=== PATIENT | male | born 1980 | race Caucasian/White ===

== ENCOUNTER 2016-08-11 23:52 | Emergency (ER) | payer SELFPAY ==
[2016-08-12] MEDS ORDERED: TENIVAC IM ONE (00:59)
[2016-08-12] MEDS ORDERED: NACL 0.9% 1000 ML 1,000 ML IV ONE ×2 (00:59→03:00)
[2016-08-12] MEDS ORDERED: ceFAZolin 2 GM in NACL 0.9% 100 ML IV ONE (00:59)
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
[2016-08-12] MEDS ORDERED: XYLOCAINE 2% INFILTRATI ONE (01:56)
[2016-08-12] MEDS ORDERED: BOOSTRIX IM ONE (02:00)
[2016-08-12 02:05] LABS: Anion Gap 26 mmol/L; BUN/Creatinine Ratio 14.28; Blood Urea Nitrogen 10 mg/dL (9-20); Calcium 8.8 mg/dL (8.4-10.2); Carbon Dioxide 20 mmol/L (22-30); Chloride 95.8 mmol/L (98-107); Glucose 428 mg/dL (75-100); Potassium 3.5 mmol/L (3.6-5.0); Sodium 138 mmol/L (137-145)
[2016-08-12 02:13] LABS: Basophils % (Auto) 0.6 % (0.0-1.8); Eosinophils % (Auto) 0.2 % (0.0-4.3); Hematocrit 47.9 % (35.5-45.6); Hemoglobin 16.1 gm/dl (11.8-15.2); Mean Corpuscular HGB Conc 34 % (32-34); Mean Corpuscular Hemoglobin 30 pg (28-32); Mean Corpuscular Volume 90 fl (84-94); Platelet Count 168 K/mm3 (140-440); Red Blood Count 5.34 M/mm3 (3.65-5.03); Red Cell Distribution Width 12.5 % (13.2-15.2); White Blood Count 12.8 K/mm3 (4.5-11.0)
[2016-08-12 02:22] LABS: INR 1.01 (0.87-1.13); Partial Thromboplastin Time 24.8 Sec. (24.2-36.6)
[2016-08-12] MEDS ORDERED: HYDROGEN PEROXIDE ONE ×2 (03:38→06:48)
[2016-08-12 07:09] VITALS: BP 125/81
== END 2016-08-12 07:40 | disposition home or self-care (01) ==
LOC: ED 23:52
DX: S01.511A Laceration without foreign body of lip, initial encounter (principal); S01.81XA Laceration without foreign body of other part of head, initial encounter; E11.65 Type 2 diabetes mellitus with hyperglycemia
CPT/HCPCS: 12015; 36415; 70450; 70486; 72125; 80048; 82962; 85025; 85610; 85730; 86850; 86900; 86901; 90471; 90715; 96361; 96365; 96375; 99284; J0690; J7030; 90714; J1815

== ENCOUNTER 2016-08-18 11:07 | Emergency (ER) | payer SELFPAY ==
[2016-08-18 11:42] VITALS: BP 108/69
--- NOTE | 2016-08-18 12:16 | Emergency Department Report ---
Suture/Staple Removal - HPI Chief Complaint: Laceration/Recheck/Suture Stated Complaint: SUTURE REMOVAL Time Seen by Provider: 08/18/16 11:37 When Sutures or Nitesh Placed: 5-7 Days Ago Wound Location: R lip, R face ED Review of Systems ROS: Stated complaint: SUTURE REMOVAL Other details as noted in HPI Comment: All other systems reviewed and negative Constitutional: denies: fever ENT: other (facial pain ) Endocrine: denies: increased thirst, increased urine Gastrointestinal: denies: abdominal pain, nausea, vomiting Neurological: headache ED Past Medical Hx - Past Medical History Previous Medical History?: No Hx Diabetes: Yes - Surgical History Past Surgical History?: No - Social History Smoking Status: Never Smoker Substance Use Type: None - Medications Home Medications: Home Medications Medication Instructions Recorded Confirmed Last Taken Type Cephalexin [Keflex] 1,000 mg PO Q12HR #20 cap 10/21/15 Unknown Rx HYDROcodone/APAP 7.5-325 [[place] 1 each PO Q6HR PRN #20 tablet 10/21/15 Unknown Rx 7.5/325] Mupirocin [Bactroban 2%] 1 applic TP TID 5 Days 08/18/16 Unknown Rx Suture Removal Exam - Exam General: Vital signs noted. No distress. Alert and acting appropriately. Wound: Yes Tenderness, Yes Drainage (noted on R upper lip), No Pathologic Erythema, No Pus, No Wound Dehiscence Other Systems: All other systems reviewed and are unremarkable. ED Course Vital Signs 08/18/16 11:39 Temperature 98.5 F Pulse Rate 71 Respiratory 16 Rate Blood Pressure 108/69 O2 Sat by Pulse 100 Oximetry - Reevaluation(s) Reevaluation #1: 08/18/16 12:13 17 sutures removed from R face. Wound remains intact. steristrips applied. 4 sutures removed from R upper lip. lip remains intact. crusting noted to the upper lip. Reevaluation #2: 08/18/16 12:15 Used athletic shoe designer to explain the importance of following up with PCP for DM and his facial injury. - Pulse Oximetry Interpretation Digit-Finger Initial Pulse Oximetry Readin Actions Taken: none ED Recheck MDM - Differential Diagnosis Wound Recheck, Suture/Staple Removal Critical Care Time: No Critical care attestation.: If time is entered above; I have spent that time in minutes in the direct care of this critically ill patient, excluding procedure time. ED Disposition Clinical Impression: Visit for suture removal, Impetigo Disposition: TO HOME OR SELFCARE Is pt being admited?: No Does the pt Need Aspirin: No Condition: Stable Instructions: Suture Removal (ED), Impetigo (ED) Additional Instructions: Follow up with PCP and facial surgeon as previously recommended Prescriptions: Mupirocin [Bactroban 2%] 1 applic TP TID 5 Days Referrals: JAVIER RILEY MD [Staff Physician] - 3-5 Days [facility] [Outside] - 3-5 Days [facility] [Outside] - 3-5 Days Time of Disposition: 12:17
== END 2016-08-18 14:23 | disposition home or self-care (01) ==
LOC: ED 11:07 → MERGE 11:07 → ED 14:23
DX: S01.511D Laceration without foreign body of lip, subsequent encounter (principal); L01.00 Impetigo, unspecified; E11.9 Type 2 diabetes mellitus without complications
CPT/HCPCS: 99283

== ENCOUNTER 2017-06-23 09:01 | Emergency (ER) | payer SELFPAY ==
[2017-06-23] MEDS ORDERED: NACL 0.9% 1000 ML 2,000 ML ONE (15:21)
[2017-06-23] MEDS ORDERED: NACL 0.9% 1000 ML 2,000 ML IV ONE (15:31)
[2017-06-23] MEDS ORDERED: BACTRIM DS PO ONE (18:09)
[2017-06-23] MEDS ORDERED: SUBLIMAZE IV ONE (18:09)
[2017-06-23] MEDS ORDERED: ROCEPHIN/NS 1 GM/50 ML 1 GM/50 ML BAG IV ONE (18:09)
[2017-06-23] MEDS ORDERED: TORADOL IV ONE (18:10)
[2017-06-23] MEDS ORDERED: HumuLIN R IV ONE ×2 (18:11→18:40)
[2017-06-23] MEDS ORDERED: cefTRIAXone 1 GM in NACL 0.9% 20 ML IV ONE (19:00)
[2017-06-23 19:04] LABS: Basophils % (Auto) 0.5 % (0.0-1.8); Eosinophils % (Auto) 0.5 % (0.0-4.3); Hematocrit 45.6 % (35.5-45.6); Hemoglobin 15.4 gm/dl (11.8-15.2); Lymphocytes # (Auto) 1.9 K/mm3 (1.2-5.4); Lymphocytes % (Auto) 20.5 % (13.4-35.0); Mean Corpuscular HGB Conc 34 % (32-34); Mean Corpuscular Hemoglobin 30 pg (28-32); Mean Corpuscular Volume 89 fl (84-94); Monocytes # (Auto) 0.6 K/mm3 (0.0-0.8); Monocytes % (Auto) 6.2 % (0.0-7.3); Platelet Count 199 K/mm3 (140-440); Red Blood Count 5.12 M/mm3 (3.65-5.03); Red Cell Distribution Width 12.8 % (13.2-15.2)
[2017-06-23 19:15] LABS: BUN/Creatinine Ratio 20; Blood Urea Nitrogen 10 mg/dL (9-20); Calcium 8.4 mg/dL (8.4-10.2); Hemolysis Index 7
--- NOTE | 2017-06-23 19:24 | XRay Report ---
FINAL REPORT PROCEDURE: XR TIBIA FIBULA 2V LT TECHNIQUE: LEFT tibia and fibula radiographs, AP and lateral views. CPT 51587 HISTORY: Upper anterior berry redness and pain. COMPARISON: No prior studies are available for comparison. FINDINGS: Fracture (s) and/or Dislocation(s): None . Joint space(s): Possible small knee joint effusion. Soft tissues: Normal . Bone mineralization: Normal . Foreign bodies: None . IMPRESSION: Possible small knee joint effusion. No other radiographic evidence of acute abnormality.
[2017-06-23 19:43] VITALS: BP 113/70
--- NOTE | 2017-06-23 20:22 | Emergency Department Report ---
HPI - General Chief Complaint: Wound/Laceration Time Seen by Provider: 06/23/17 16:35 - HPI HPI: The patient is a 36-year-old male with a history of diabetes, who presents for evaluation of pain and redness to the left lower leg. The patient reports a days progressive left lower leg pain and redness, worsening for the past 2 days. He states that his pain is given stinging in quality, moderate to severe , exacerbated with movement of the leg. He states that he believes the infection in his leg began after a bug bite. He denies witnessing a spider or other bug bite. The patient denies fever, chills, night sweats, chest pain, dyspnea, abdominal pain, blood in the stool, dark tarry stool, dysuria, hematuria, flank pain. ED Past Medical Hx - Past Medical History Hx Diabetes: Yes - Surgical History Additional Surgical History: R leg - Social History Smoking Status: Never Smoker Substance Use Type: Alcohol - Medications Home Medications: Home Medications Medication Instructions Recorded Confirmed Last Taken Type Cephalexin [Keflex] 1,000 mg PO Q12HR #20 cap 10/21/15 Unknown Rx HYDROcodone/APAP 7.5-325 [[place] 1 each PO Q6HR PRN #20 tablet 10/21/15 Unknown Rx 7.5/325] Cephalexin [Keflex] 1,000 mg PO Q12HR #28 cap 08/12/16 Unknown Rx HYDROcodone/APAP 5-325 [[place] 1 each PO Q6HR PRN #10 tablet 08/12/16 Unknown Rx 5/325] Mupirocin [Bactroban 2%] 1 applic TP TID 5 Days tube 08/18/16 Unknown Rx Cephalexin [Keflex] 500 mg PO QID #30 capsule 06/23/17 Unknown Rx Sulfamethoxazole/Trimethoprim 1 each PO BID #20 tablet 06/23/17 Unknown Rx [Bactrim DS TAB] metFORMIN [Glucophage] 500 mg PO BID #60 tablet 06/23/17 Unknown Rx traMADol [Ultram 50 MG tab] 50 mg PO Q6HR PRN #20 tablet 06/23/17 Unknown Rx ED Review of Systems ROS: Stated complaint: INSECT BITE Other details as noted in HPI Constitutional: denies: fever ENT: denies: throat or neck pain Respiratory: denies: cough, shortness of breath Cardiovascular: denies: chest pain Endocrine: denies unexplained weight loss or gain Gastrointestinal: denies: abdominal pain, nausea Genitourinary: denies: dysuria Musculoskeletal: reports leg pain and redness denies: leg swelling Skin: denies: rash Neurological: denies: headache Hematological/Lymphatic: denies: easy bleeding or easy bruising Psych: denies sadness or hopelessness Physical Exam - Physical Exam Vital Signs: Vital Signs 06/23/17 06/23/17 06/23/17 09:27 19:24 19:30 Temperature 98.3 F Pulse Rate 92 H 90 Respiratory 20 16 16 Rate Blood Pressure 126/78 Blood Pressure 136/82 [Left] O2 Sat by Pulse 98 100 Oximetry 06/23/17 19:41 Temperature 98.6 F Pulse Rate 95 H Respiratory 18 Rate Blood Pressure Blood Pressure 113/70 [Left] O2 Sat by Pulse 98 Oximetry Physical Exam: General: well-nourished, well-developed, no acute distress Head: Normocephalic, atraumatic Eyes: normal sclera ENT: Mucous membranes are pale and dry Neck: trachea midline, neck supple, No neck stiffness, no cervical adenopathy Respiratory: Breath sounds equal bilaterally, no wheezing, rales, or rhonchi Cardio: S1 and S2 present, no murmurs, rubs, gallops, capillary refill is delayed Abdomen: Normoactive bowel sounds, soft abdomen, no tenderness Chest WALL/Back: No tenderness to palpation of the chest wall, no CVA tenderness with percussion Musc: Erythema tenderness palpation presents to the left anterior mid berry, distal to the knee, no pain with passive range of motion of the knee, no redness or swelling overlying the knee, no fluctuance, no purulent discharge or drainage Skin: No rash Neuro: no facial drooping, normal speech Psych: Normal affect ED Course Vital Signs 06/23/17 06/23/17 06/23/17 09:27 19:24 19:30 Temperature 98.3 F Pulse Rate 92 H 90 Respiratory 20 16 16 Rate Blood Pressure 126/78 Blood Pressure 136/82 [Left] O2 Sat by Pulse 98 100 Oximetry 06/23/17 19:41 Temperature 98.6 F Pulse Rate 95 H Respiratory 18 Rate Blood Pressure Blood Pressure 113/70 [Left] O2 Sat by Pulse 98 Oximetry ED Medical Decision Making - Lab Data Result diagrams: 06/23/17 18:54 06/23/17 18:54 - Medical Decision Making The patient was seen and examined by myself. The patient is placed on a teletypesetter monitor and continuous pulse ox. On initial evaluation, the patient was found to be in no distress. Evaluation orders were placed. The patient given pain medicine. Evaluation findings are consistent with acute cellulitis. Lab results revealed elevated glucose of 242, and otherwise are grossly not concerning including normal anion gap and bicarbonate. The patient is given IV Rocephin and a tablet of Bactrim for treatment of his cellulitis, and 1 L normal saline fluid bolus for treatment of his hyperglycemia and dehydration. The patient will be given outpatient trial of antibiotics. He is instructed to return to the emergency department immediately if he developed worsening/ spreading of his redness or pain. The patient was reevaluated and reported that their symptoms were markedly improved. The patient is stable for discharge with outpatient follow-up. The patient is given follow-up and return instructions. The patient expressed understanding and agreed with the plan. The patient is discharged in stable condition. Critical care attestation.: If time is entered above; I have spent that time in minutes in the direct care of this critically ill patient, excluding procedure time. ED Disposition Clinical Impression: Cellulitis of left anterior lower leg, Acute hyperglycemia, Dehydration Disposition: DC-01 TO HOME OR SELFCARE Is pt being admited?: No Does the pt Need Aspirin: No Condition: Stable Instructions: Cellulitis (ED), Diabetic Foot Care (ED), Diabetes Mellitus Type 2 in Adults (ED), Acute Wound Care (ED), Managing Diabetes During Sick Days (ED) , Diabetic Foot Ulcers (ED) Additional Instructions: Return to the emergency department or another hospital immediately if you develope worsening or spreading redness or pain, or any other worsening symptoms. Prescriptions: Cephalexin [Keflex] 500 mg PO QID #30 capsule metFORMIN [Glucophage] 500 mg PO BID #60 tablet Sulfamethoxazole/Trimethoprim [Bactrim DS TAB] 1 each PO BID #20 tablet traMADol [Ultram 50 MG tab] 50 mg PO Q6HR PRN #20 tablet PRN Reason: Pain Referrals: [facility] [Outside] - 3-5 Days PRIMARY CARE,MD [Primary Care Provider] - 3-5 Days Time of Disposition: 20:18 Print Language: SOMALI
== END 2017-06-23 21:05 | disposition home or self-care (01) ==
LOC: ED 09:01
DX: L03.116 Cellulitis of left lower limb (principal); E86.0 Dehydration; E11.65 Type 2 diabetes mellitus with hyperglycemia; Z79.84 Long term (current) use of oral hypoglycemic drugs
CPT/HCPCS: 36415; 73590; 80048; 82805; 82962; 85025; 96361; 96374; 96375; 99284; J0696; J1885; J3010; J7030; J1815

== ENCOUNTER 2018-10-17 10:26 | Emergency (ER) | payer SELFPAY ==
[2018-10-17 10:49] VITALS: BP 118/69
[2018-10-17] MEDS ORDERED: KEFLEX PO ONE (11:02)
[2018-10-17] MEDS ORDERED: IBUPROFEN PO ONE (11:02)
[2018-10-17] MEDS ORDERED: BACTRIM DS PO ONE (11:02)
--- NOTE | 2018-10-17 11:17 | Emergency Department Report ---
- General Chief Complaint: Extremity Injury, Lower Stated Complaint: (R) LEG PAIN Time Seen by Provider: 10/17/18 11:01 Source: patient Mode of arrival: Ambulatory Limitations: No Limitations - History of Present Illness Initial Comments: Mr. Lua is a 38-year-old male with history of diabetes mellitus who presents with abscess skin infection right lower leg. Infection has been present for several days. He is concerned for possible spider bowel. Denies fever. Denies trauma. He has some infection on the left leg on prior dictation. Mild pain. Can Closing Machine Tender [id number] via telephone language line used for history taking and discharge instructions -: Gradual, days(s) (3) Location: other (right leg) Extremity Location: Right: Lower Leg Associated Symptoms: pain - Related Data Previous Rx's Medication Instructions Recorded Last Taken Type HYDROcodone/APAP 7.5-325 [[place] 1 each PO Q6HR PRN #20 tablet 10/21/15 Unknown Rx 7.5/325] cephALEXin [Keflex] 1,000 mg PO Q12HR #20 cap 10/21/15 Unknown Rx HYDROcodone/APAP 5-325 [[place] 1 each PO Q6HR PRN #10 tablet 08/12/16 Unknown Rx 5/325] cephALEXin [Keflex] 1,000 mg PO Q12HR #28 cap 08/12/16 Unknown Rx Mupirocin [Bactroban 2%] 1 applic TP TID 5 Days tube 08/18/16 Unknown Rx Sulfamethoxazole/Trimethoprim 1 each PO BID #20 tablet 06/23/17 Unknown Rx [Bactrim DS TAB] cephALEXin [Keflex] 500 mg PO QID #30 capsule 06/23/17 Unknown Rx metFORMIN [Glucophage] 500 mg PO BID #60 tablet 06/23/17 Unknown Rx traMADol [Ultram 50 MG tab] 50 mg PO Q6HR PRN #20 tablet 06/23/17 Unknown Rx Sulfamethoxazole/Trimethoprim 1 each PO BID 10 Days #20 tablet 10/17/18 Unknown Rx [Bactrim DS TAB] cephALEXin [Keflex] 500 mg PO Q6HR 10 Days #40 capsule 10/17/18 Unknown Rx Allergies Allergy/AdvReac Type Severity Reaction Status Date / Time No Known Allergies Allergy Verified 06/23/17 09:20 ED Review of Systems ROS: Stated complaint: (R) LEG PAIN Other details as noted in HPI Constitutional: denies: fever, malaise Cardiovascular: denies: chest pain Gastrointestinal: denies: abdominal pain Skin: rash, lesions, change in color ED Past Medical Hx - Past Medical History Previous Medical History?: Yes Hx Diabetes: Yes - Surgical History Past Surgical History?: Yes Additional Surgical History: R leg - Social History Smoking Status: Never Smoker Substance Use Type: None - Medications Home Medications: Home Medications Medication Instructions Recorded Confirmed Last Taken Type HYDROcodone/APAP 7.5-325 [[place] 1 each PO Q6HR PRN #20 tablet 10/21/15 Unknown Rx 7.5/325] cephALEXin [Keflex] 1,000 mg PO Q12HR #20 cap 10/21/15 Unknown Rx HYDROcodone/APAP 5-325 [[place] 1 each PO Q6HR PRN #10 tablet 08/12/16 Unknown Rx 5/325] cephALEXin [Keflex] 1,000 mg PO Q12HR #28 cap 08/12/16 Unknown Rx Mupirocin [Bactroban 2%] 1 applic TP TID 5 Days tube 08/18/16 Unknown Rx Sulfamethoxazole/Trimethoprim 1 each PO BID #20 tablet 06/23/17 Unknown Rx [Bactrim DS TAB] cephALEXin [Keflex] 500 mg PO QID #30 capsule 06/23/17 Unknown Rx metFORMIN [Glucophage] 500 mg PO BID #60 tablet 06/23/17 Unknown Rx traMADol [Ultram 50 MG tab] 50 mg PO Q6HR PRN #20 tablet 06/23/17 Unknown Rx Sulfamethoxazole/Trimethoprim 1 each PO BID 10 Days #20 tablet 10/17/18 Unknown Rx [Bactrim DS TAB] cephALEXin [Keflex] 500 mg PO Q6HR 10 Days #40 capsule 10/17/18 Unknown Rx ED Physical Exam - General Limitations: No Limitations General appearance: alert, in no apparent distress - Head Head exam: Present: atraumatic, normocephalic - Neurological Exam Neurological exam: Present: alert, oriented X3 - Psychiatric Psychiatric exam: Present: normal affect, normal mood - Skin Skin exam: Present: other (5 cm x 5 cm square area of cellulitis right lower lateral leg 2 cm abscess) ED Course Vital Signs 10/17/18 10:48 Temperature 98.4 F Pulse Rate 82 Respiratory 18 Rate Blood Pressure 118/69 O2 Sat by Pulse 99 Oximetry ED Medical Decision Making - Medical Decision Making cellulitis/abscess right leg: will treat with antibiotics, advised to return to ER for skin check Critical care attestation.: If time is entered above; I have spent that time in minutes in the direct care of this critically ill patient, excluding procedure time. ED Disposition Clinical Impression: Diabetes mellitus, Cellulitis and abscess of right leg Disposition: - TO HOME OR SELFCARE Is pt being admited?: No Does the pt Need Aspirin: No Condition: Stable Instructions: Abscess (ED), Cellulitis (ED) Prescriptions: Sulfamethoxazole/Trimethoprim [Bactrim DS TAB] 1 each PO BID 10 Days #20 tablet cephALEXin [Keflex] 500 mg PO Q6HR 10 Days #40 capsule Referrals: [facility] [Outside] - 3-5 Days Print Language: GERMAN
== END 2018-10-17 11:31 | disposition home or self-care (01) ==
LOC: ED 10:26
DX: L03.115 Cellulitis of right lower limb (principal); E11.9 Type 2 diabetes mellitus without complications; Z79.899 Other long term (current) drug therapy; Z79.84 Long term (current) use of oral hypoglycemic drugs
CPT/HCPCS: 99282

== ENCOUNTER 2019-10-19 09:31 | Inpatient (IN) | payer OTHER, SELFPAY ==
[2019-10-19] MEDS ORDERED: SODIUM CHLORIDE 0.9% 500 ML 500 ML IV ONE (09:47)
[2019-10-19 10:29] LABS: Basophils # (Auto) 0.1 K/mm3 (0.0-0.1); Eosinophils % (Auto) 0.2 % (0.0-4.3); Hematocrit 40.6 % (35.5-45.6); Lymphocytes # (Auto) 1.1 K/mm3 (1.2-5.4); Lymphocytes % (Auto) 7.6 % (13.4-35.0); Mean Corpuscular HGB Conc 32 % (32-34); Mean Corpuscular Volume 90 fl (84-94); Monocytes # (Auto) 0.8 K/mm3 (0.0-0.8); Monocytes % (Auto) 5.5 % (0.0-7.3); Platelet Count 300 K/mm3 (140-440); Red Cell Distribution Width 12.3 % (13.2-15.2)
[2019-10-19 10:38] LABS: INR 1.07 (0.87-1.13)
[2019-10-19 10:46] LABS: Alanine Aminotransferase 13 units/L (7-56); Albumin 2.9 g/dL (3.9-5); Blood Urea Nitrogen 14 mg/dL (9-20); Calcium 8.4 mg/dL (8.4-10.2); Hemolysis Index 5
[2019-10-19 11:05] LABS: BUN/Creatinine Ratio 20
--- NOTE | 2019-10-19 11:23 | XRay Report ---
CHEST 1 VIEW INDICATION: possible Sepsis. COMPARISON: None FINDINGS: Support devices: None. Heart: Within normal limits. Lungs/Pleura: No acute air space or interstitial disease. Additional findings: None. IMPRESSION: No acute findings. Signer Name: Catrachito Perez Jr, MD Signed: 10/19/2019 11:18 AM Workstation Name: [id number]
[2019-10-19] MEDS ORDERED: SODIUM CHLORIDE 0.9% 1000 ML IV SOLN IV ONE (11:27)
[2019-10-19] MEDS ORDERED: SODIUM CHLORIDE 0.9% 1000 ML 1,000 ML ONE (11:28)
[2019-10-19] MEDS ORDERED: PIPERACILLIN/TAZOBACTAM 3.375 3.375 GM/50 ML BAG IV ONE (11:29)
[2019-10-19] MEDS ORDERED: INSULIN REGULAR, HUMAN 100 UNIT/ML 3ML VIAL IV ONE (11:30)
[2019-10-19] MEDS ORDERED: INSULIN REGULAR, HUMAN 100 UNITS/1 ML ONE ×2 (11:55→17:35)
[2019-10-19] MEDS ORDERED: MORPHINE 4 MG/1 ML INJ ONE (12:05)
[2019-10-19] MEDS ORDERED: ONDANSETRON 4 MG/2 ML INJ ONE (12:05)
[2019-10-19] MEDS ORDERED: ONDANSETRON 4 MG/2 ML INJ IV ONE (12:45)
[2019-10-19] MEDS ORDERED: MORPHINE 4 MG/1 ML INJ IM ONE (12:45)
--- NOTE | 2019-10-19 13:03 | Emergency Department Report ---
ED General Adult HPI - General Chief complaint: Wound/Laceration Stated complaint: FOOT INJURY Time Seen by Provider: 10/19/19 11:32 Source: patient Mode of arrival: Ambulatory Limitations: No Limitations - History of Present Illness Initial comments: Patient is 39 years old male with history of diabetes on metformin he stated that he is out of his medication for the last 8 days. Patient presented to the ER complaining of right foot pain, swelling and color change to dark for the last 3 days. Patient denied any recent injury. Patient also denied fever but stated that he has some chills. Patient denied any chest pain or shortness of breath. Patient denied any nausea or vomiting. - Related Data Previous Rx's Medication Instructions Recorded Last Taken Type HYDROcodone/APAP 7.5-325 [[place] 1 each PO Q6HR PRN #20 tablet 10/21/15 Unknown Rx 7.5/325] cephALEXin [Keflex] 1,000 mg PO Q12HR #20 cap 10/21/15 Unknown Rx HYDROcodone/APAP 5-325 [[place] 1 each PO Q6HR PRN #10 tablet 08/12/16 Unknown Rx 5/325] cephALEXin [Keflex] 1,000 mg PO Q12HR #28 cap 08/12/16 Unknown Rx Mupirocin [Bactroban 2%] 1 applic TP TID 5 Days tube 08/18/16 Unknown Rx Sulfamethoxazole/Trimethoprim 1 each PO BID #20 tablet 06/23/17 Unknown Rx [Bactrim DS TAB] cephALEXin [Keflex] 500 mg PO QID #30 capsule 06/23/17 Unknown Rx metFORMIN [Glucophage] 500 mg PO BID #60 tablet 06/23/17 Unknown Rx traMADoL [Ultram 50 MG tab] 50 mg PO Q6HR PRN #20 tablet 06/23/17 Unknown Rx Sulfamethoxazole/Trimethoprim 1 each PO BID 10 Days #20 tablet 10/17/18 Unknown Rx [Bactrim DS TAB] cephALEXin [Keflex] 500 mg PO Q6HR 10 Days #40 capsule 10/17/18 Unknown Rx Allergies Allergy/AdvReac Type Severity Reaction Status Date / Time No Known Allergies Allergy Verified 06/23/17 09:20 ED Review of Systems ROS: Stated complaint: FOOT INJURY Other details as noted in HPI Comment: All other systems reviewed and negative Constitutional: chills. denies: fever Respiratory: denies: cough, shortness of breath, SOB with exertion, SOB at rest, wheezing Cardiovascular: denies: chest pain, palpitations Gastrointestinal: denies: abdominal pain, nausea, vomiting Neurological: denies: headache, weakness ED Past Medical Hx - Past Medical History Hx Diabetes: Yes - Surgical History Additional Surgical History: R leg - Social History Smoking Status: Never Smoker - Medications Home Medications: Home Medications Medication Instructions Recorded Confirmed Last Taken Type HYDROcodone/APAP 7.5-325 [[place] 1 each PO Q6HR PRN #20 tablet 10/21/15 Unknown Rx 7.5/325] cephALEXin [Keflex] 1,000 mg PO Q12HR #20 cap 10/21/15 Unknown Rx HYDROcodone/APAP 5-325 [[place] 1 each PO Q6HR PRN #10 tablet 08/12/16 Unknown Rx 5/325] cephALEXin [Keflex] 1,000 mg PO Q12HR #28 cap 08/12/16 Unknown Rx Mupirocin [Bactroban 2%] 1 applic TP TID 5 Days tube 08/18/16 Unknown Rx Sulfamethoxazole/Trimethoprim 1 each PO BID #20 tablet 06/23/17 Unknown Rx [Bactrim DS TAB] cephALEXin [Keflex] 500 mg PO QID #30 capsule 06/23/17 Unknown Rx metFORMIN [Glucophage] 500 mg PO BID #60 tablet 06/23/17 Unknown Rx traMADoL [Ultram 50 MG tab] 50 mg PO Q6HR PRN #20 tablet 06/23/17 Unknown Rx Sulfamethoxazole/Trimethoprim 1 each PO BID 10 Days #20 tablet 10/17/18 Unknown Rx [Bactrim DS TAB] cephALEXin [Keflex] 500 mg PO Q6HR 10 Days #40 capsule 10/17/18 Unknown Rx ED Physical Exam - General Limitations: No Limitations General appearance: alert, in no apparent distress - Head Head exam: Present: atraumatic, normocephalic, normal inspection - Eye Eye exam: Present: normal appearance - ENT ENT exam: Present: normal exam, normal orophraynx, mucous membranes dry - Neck Neck exam: Present: normal inspection, full ROM. Absent: tenderness, meningismus - Respiratory Respiratory exam: Present: normal lung sounds bilaterally - Cardiovascular Cardiovascular Exam: Present: regular rate, normal heart sounds - GI/Abdominal GI/Abdominal exam: Present: soft, normal bowel sounds. Absent: distended, tenderness, guarding, rebound, rigid, organomegaly, mass, bruit, pulsatile mass, hernia - Extremities Exam Extremities exam: Present: other (Right fourth and fifth toe gangrene, wet gangrene with significant swelling and cellulitis.) ED Course Vital Signs 10/19/19 10/19/19 10/19/19 09:46 11:25 11:42 Temperature 98.7 F 98.9 F Pulse Rate 112 H 108 H Respiratory 16 16 Rate Blood Pressure 130/82 132/79 O2 Sat by Pulse 97 97 99 Oximetry 10/19/19 10/19/19 10/19/19 11:45 11:50 12:00 Temperature Pulse Rate Respiratory 18 Rate Blood Pressure 125/59 125/79 O2 Sat by Pulse 99 100 99 Oximetry 10/19/19 10/19/19 10/19/19 12:30 12:45 13:00 Temperature Pulse Rate Respiratory Rate Blood Pressure 125/79 125/79 155/88 O2 Sat by Pulse 98 98 100 Oximetry 10/19/19 10/19/19 10/19/19 13:15 13:26 13:31 Temperature Pulse Rate Respiratory 18 Rate Blood Pressure 125/79 125/79 O2 Sat by Pulse 100 100 Oximetry 10/19/19 10/19/19 10/19/19 13:45 14:00 14:15 Temperature Pulse Rate Respiratory Rate Blood Pressure 125/79 133/80 155/88 O2 Sat by Pulse 99 100 100 Oximetry 10/19/19 10/19/19 14:31 14:45 Temperature Pulse Rate Respiratory Rate Blood Pressure 155/88 155/88 O2 Sat by Pulse 96 99 Oximetry ED Medical Decision Making - Lab Data Result diagrams: 10/19/19 10:10 10/19/19 10:10 - EKG Data -: EKG Interpreted by [place] EKG shows normal: sinus rhythm Rate: tachycardia - EKG Data Interpretation: no acute changes - Radiology Data Radiology results: report reviewed - Medical Decision Making Patient is 39 years old male with history of diabetes on metformin he stated that he is out of his medication for the last 8 days. Patient presented to the ER complaining of right foot pain, swelling and color change to dark for the last 3 days. Patient denied any recent injury. Patient also denied fever but stated that he has some chills. Patient denied any chest pain or shortness of breath. Patient denied any nausea or vomiting. Patient started on normal saline. Patient given morphine, Zofran and Zosyn. Patient also given insulin. Patient found to have right fourth to gangrene. I discussed the patient with Dr. Dale Collado, vascular surgeon on-call who advised to contact orthopedics for this patient. Patient CTA right lower extremity showed no vascular compromise however showed osteomyelitis to the right fourth toe. I discussed the patient with Dr. Hastings, orthopedics on-call and he stated that patient need to be seen by general surgeon and he does not do diabetic foot wound. I discussed the patient with Dr. Jaime, general surgeon, he advised to admit the patient to the hospitalist. Hold anticoagulant and keep patient n.p.o. after midnight for possible surgery in the morning. I discussed the patient with Dr. Corea, he agreed to admit the patient to medical service for further management. Critical Care Time: Yes Critical care time in (mins) excluding proc time.: 30 Critical care attestation.: If time is entered above; I have spent that time in minutes in the direct care of this critically ill patient, excluding procedure time. ED Disposition Clinical Impression: Gangrene of right foot, Sepsis, Acute hyperglycemia Disposition: OP ADMIT IP TO THIS HOSP Is pt being admited?: Yes Condition: Stable Referrals: PRIMARY CARE, [Primary Care Provider] - 3-5 Days
--- NOTE | 2019-10-19 13:29 | Cat Scan Report ---
CTA RIGHT LOWER EXTREMITY HISTORY: Diabetic right foot, ulcer COMPARISON: None. TECHNIQUE: Routine postcontrast CT angiography of the right lower extremity performed. Multiplanar/HI P/3D reformats were post-processed. All CT scans at this location are performed using CT dose reducti on for ALARA by means of automated exposure control. CONTRAST: 100 ml of Omnipaque 350 FINDINGS: Common Femoral Artery: No significant abnormality. Superficial Femoral Artery: No significant abnormality. Profunda Femoral Artery: No significant abnormality. Popliteal Artery: No significant abnormality. Anterior Tibial Artery: No significant abnormality. Tibioperoneal Trunk: No significant abnormality. Posterior Tibial Artery: No significant abnormality. Peroneal Artery: No significant abnormality. Ankle runoff: 2 vessel. The peroneal artery is last visualized at the level of the distal tibia and i s partially obscured from streak artifact by surgical screws in the distal fibula. NONTARGET STRUCTURES: Musculoskeletal:There is moderate soft tissue gas in the distal plantar surface of the foot and four th toe. Bony destruction of the distal phalanx of the fourth toe is suspected consistent with osteomy elitis. Additional Findings: There are multiple mildly enlarged and enhancing right external iliac and right inguinal lymph nodes with the largest measuring 2.2 x 1.3 cm. IMPRESSION: Unremarkable CTA of the right lower extremity. Cellulitis of the distal foot. Probable osteomyelitis of the fourth toe. Signer Name: Catrachito Perez Jr, MD Signed: 10/19/2019 1:25 PM Workstation Name: [id number]
[2019-10-19] MEDS ORDERED: ALBUTEROL 2.5 MG/3 ML NEBU IH PRN (16:43)
[2019-10-19] MEDS ORDERED: ONDANSETRON 4 MG/2 ML INJ IV PRN (16:43)
--- NOTE | 2019-10-19 16:43 | History and Physical Report ---
History of Present Illness Chief complaint: My foot hurts History of present illness: 39 YO Male with DM presents to ED for evaluation. Patient states that he has experienced pain, redness, and swelling to his right foot over the past 1 week with worsening symptoms over the past 3 days. Patient states that his pain is currently 6/10, constant, worsened with weightbearing, relieved with rest. Patient also reports darkening of his right fourth toe. Patient transported to [facility] via private vehicle for further care and evaluation. Patient seen and evaluated in the emergency department. Lab and imaging studies reviewed. Patient found to have cellulitis to right lower extremity, as well as suspected osteomyelitis to the right fourth toe, systemic inflammatory response syndrome, uncontrolled diabetes mellitus. Patient admitted to medical floor and initiated on IV antibiotic therapy. Surgical team consulted in ED for probable amputation. Patient denies fever, chills, chest pain, palpitation, productive c ough, recent ill contacts, or known exposure to COVID-19. No medication listed at time of admission for reconciliation. No prior admission for review. Past History Past Medical History: diabetes Past Surgical History: No surgical history, Other (Reviewed) Social history: single. denies: smoking, alcohol abuse Family history: diabetes, hypertension Medications and Allergies Allergies Allergy/AdvReac Type Severity Reaction Status Date / Time No Known Allergies Allergy Verified 06/23/17 09:20 Home Medications Medication Instructions Recorded Confirmed Last Taken Type HYDROcodone/APAP 7.5-325 [[place] 1 each PO Q6HR PRN #20 tablet 10/21/15 Unknown Rx 7.5/325] cephALEXin [Keflex] 1,000 mg PO Q12HR #20 cap 10/21/15 Unknown Rx HYDROcodone/APAP 5-325 [[place] 1 each PO Q6HR PRN #10 tablet 08/12/16 Unknown Rx 5/325] cephALEXin [Keflex] 1,000 mg PO Q12HR #28 cap 08/12/16 Unknown Rx Mupirocin [Bactroban 2%] 1 applic TP TID 5 Days tube 08/18/16 Unknown Rx Sulfamethoxazole/Trimethoprim 1 each PO BID #20 tablet 06/23/17 Unknown Rx [Bactrim DS TAB] cephALEXin [Keflex] 500 mg PO QID #30 capsule 06/23/17 Unknown Rx metFORMIN [Glucophage] 500 mg PO BID #60 tablet 06/23/17 Unknown Rx traMADoL [Ultram 50 MG tab] 50 mg PO Q6HR PRN #20 tablet 06/23/17 Unknown Rx Sulfamethoxazole/Trimethoprim 1 each PO BID 10 Days #20 tablet 10/17/18 Unknown Rx [Bactrim DS TAB] cephALEXin [Keflex] 500 mg PO Q6HR 10 Days #40 capsule 10/17/18 Unknown Rx Review of Systems Constitutional: no weight loss, no weight gain, no fever, no chills Ears, nose, mouth and throat: no ear pain, no ear discharge, no tinnitis, no nose pain, no nasal congestion, no nasal discharge Cardiovascular: no chest pain, no orthopnea, no palpitations, no edema, no syncope, no lightheadedness Respiratory: no cough, no excessive sputum, no shortness of breath Gastrointestinal: no nausea, no vomiting, no constipation, no change in bowel habits Genitourinary Male: no hematuria, no flank pain, no discharge, no urinary frequency, no urinary hesitancy Rectal: no pain, no incontinence, no bleeding Musculoskeletal: other (Right foot pain), no neck stiffness, no neck pain, no arm numbness/tingling, no shooting leg pain Integumentary: no rash, no pruritis, no sores Neurological: no head injury, no transient paralysis, no numbness, no tingling, no tremors Psychiatric: no memory loss, no sleep disturbances, no hypersomnia, no change in libido Endocrine: no cold intolerance, no polyphagia, no polyuria, no excessive sweating Hematologic/Lymphatic: no easy bruising, no easy bleeding Allergic/Immunologic: no allergic rhinitis, no wheezing Exam - Constitutional Vitals: Temp Pulse Resp BP Pulse Ox 98.9 F 108 H 18 155/88 99 10/19/19 11:25 10/19/19 11:25 10/19/19 13:26 10/19/19 14:45 10/19/19 14:45 General appearance: Present: mild distress - EENT Eyes: Present: PERRL ENT: hearing intact, clear oral mucosa - Neck Neck: Present: supple, normal ROM - Respiratory Respiratory effort: normal Respiratory: bilateral: CTA - Cardiovascular Heart Sounds: Present: S1 & S2. Absent: rub, click - Extremities Extremities: pulses symmetrical, No edema Extremity abnormal: edema, ulceration, erythema, tenderness Peripheral Pulses: within normal limits - Abdominal General gastrointestinal: Present: soft, non-tender, non-distended, normal bowel sounds Male genitourinary: Present: normal - Integumentary Integumentary: Present: clear, warm, dry - Musculoskeletal Musculoskeletal: gait normal, strength equal bilaterally - Psychiatric Psychiatric: appropriate mood/affect, intact judgment & insight - Neurologic Neurologic: CNII-XII intact, moves all extremities Results - Labs CBC & Chem 7: 10/19/19 10:10 10/19/19 10:10 Labs: Abnormal lab results 10/19/19 10/19/19 10/19/19 Range/Units 10:03 10:10 10:10 WBC 14.7 H (4.5-11.0) K/mm3 RDW 12.3 L (13.2-15.2) % Lymph % (Auto) 7.6 L (13.4-35.0) % Lymph # 1.1 L (1.2-5.4) K/mm3 Seg Neutrophils % 85.7 H (40.0-70.0) % Seg Neutrophils # 12.6 H (1.8-7.7) K/mm3 VBG pH (7.320-7.420) Sodium 131 L (137-145) mmol/L Chloride 91.8 L (98-107) mmol/L Creatinine 0.7 L (0.8-1.3) mg/dL Glucose 503 H* (75-100) mg/dL POC Glucose 446 H (70-105) Alkaline Phosphatase 173 H (35-129) units/L Albumin 2.9 L (3.9-5) g/dL 10/19/19 Range/Units 10:10 WBC (4.5-11.0) K/mm3 RDW (13.2-15.2) % Lymph % (Auto) (13.4-35.0) % Lymph # (1.2-5.4) K/mm3 Seg Neutrophils % (40.0-70.0) % Seg Neutrophils # (1.8-7.7) K/mm3 VBG pH 7.432 H (7.320-7.420) Sodium (137-145) mmol/L Chloride (98-107) mmol/L Creatinine (0.8-1.3) mg/dL Glucose (75-100) mg/dL POC Glucose (70-105) Alkaline Phosphatase (35-129) units/L Albumin (3.9-5) g/dL Assessment and Plan - Patient Problems (1) Systemic inflammatory response syndrome Current Visit: Yes Status: Acute Plan to address problem: CBC, CMP, IV antibiotic therapy, IV fluid resuscitation therapy, supportive care. (2) Uncontrolled diabetes mellitus Current Visit: Yes Status: Acute Qualifiers: Diabetes mellitus type: type 1 Plan to address problem: Sliding scale insulin therapy, Accu-Chek, consistent carbohydrate diet, hypoglycemia protocol. (3) Noncompliance with medication regimen Current Visit: Yes Status: Acute Plan to address problem: Patient counseled, patient knowledges understanding instructions. (4) Cellulitis Current Visit: Yes Status: Acute Qualifiers: Site of cellulitis of extremity: lower extremity Laterality: right Plan to address problem: CBC, CMP, IV antibiotic therapy, repeat CBC in a.m. (5) Diabetic infection of right foot Current Visit: Yes Status: Acute Plan to address problem: CBC, CMP, IV antibiotic therapy, CT right lower extremity, pain control, supportive care. (6) Osteomyelitis due to type 1 diabetes mellitus Current Visit: Yes Status: Suspected Plan to address problem: CT scan right lower extremity, surgical team consulted. (7) DVT prophylaxis Current Visit: Yes Status: Acute Plan to address problem: SCD to bilateral lower extremities while in bed,
[2019-10-19] MEDS ORDERED: DEXTROSE 50% IN WATER (25GM) 50 ML SYRINGE IV PRN (16:46)
[2019-10-19] MEDS ORDERED: VANCOMYCIN PHARMACY TO DOSE IV SCH (17:00)
[2019-10-19] MEDS ORDERED: VANCOMYCIN/NS 1 GM/250 ML 1 GM/250 ML BAG IV ONE (17:30)
[2019-10-19] MEDS ORDERED: INSULIN REGULAR, HUMAN 100 UNIT/ML 3ML VIAL ONE (17:35)
[2019-10-19] MEDS: INSULIN LISPRO 100 UNIT/ML VIAL 3 mL SUB-Q SCH ×2 (17:50→23:28)
[2019-10-19] MEDS ORDERED: LISINOPRIL 5 MG TAB ONE (18:59)
[2019-10-19] MEDS: LISINOPRIL 5 MG TAB PO SCH (19:00)
[2019-10-20] MEDS: INSULIN LISPRO 100 UNIT/ML VIAL 3 mL SUB-Q SCH ×3 (05:14→18:06)
[2019-10-20 05:29] LABS: Basophils # (Auto) 0.1 K/mm3 (0.0-0.1); Basophils % (Auto) 0.6 % (0.0-1.8); Eosinophils # (Auto) 0.1 K/mm3 (0.0-0.4); Eosinophils % (Auto) 0.6 % (0.0-4.3); Hematocrit 36.2 % (35.5-45.6); Lymphocytes # (Auto) 1.4 K/mm3 (1.2-5.4); Lymphocytes % (Auto) 9.3 % (13.4-35.0); Mean Corpuscular HGB Conc 33 % (32-34); Mean Corpuscular Volume 89 fl (84-94); Monocytes # (Auto) 1.1 K/mm3 (0.0-0.8); Monocytes % (Auto) 7.8 % (0.0-7.3); Platelet Count 323 K/mm3 (140-440); Red Blood Count 4.09 M/mm3 (3.65-5.03); Red Cell Distribution Width 12.2 % (13.2-15.2)
[2019-10-20 05:37] LABS: Blood Urea Nitrogen 9 mg/dL (9-20); Calcium 8.4 mg/dL (8.4-10.2); Hemolysis Index 3
[2019-10-20 05:38] LABS: BUN/Creatinine Ratio 15
[2019-10-20] MEDS ORDERED: VANCOMYCIN 750 MG in SODIUM CHLORIDE 0.9% 250ML 250 ML IV SCH (08:00)
--- NOTE | 2019-10-20 08:32 | Consultation ---
History of Present Illness Consult date: 10/20/19 Reason for consult: wound care Requesting physician: RAIMUNDO VILLAGRAN Chief complaint: right foot pain - History of present illness History of present illness: 39yo M with DM presents to ED with recent development of right foot pain. Patient was found to have cellulitis and gangrene of the right fourth toe. General surgery was consulted. Patient reports that he just noticed the right fourth toe was black a few days ago. He has some sensation in the foot. He came for evaluation due to pain and swelling in the right foot. Denies any fevers or chills. He does not monitor his diabetes. Past History Past Medical History: diabetes Past Surgical History: No surgical history, Other (Reviewed) Social history: single. denies: smoking, alcohol abuse Family history: diabetes, hypertension Medications and Allergies Allergies Allergy/AdvReac Type Severity Reaction Status Date / Time No Known Allergies Allergy Verified 06/23/17 09:20 Home Medications Medication Instructions Recorded Confirmed Last Taken Type HYDROcodone/APAP 7.5-325 [[place] 1 each PO Q6HR PRN #20 tablet 10/21/15 Unknown Rx 7.5/325] cephALEXin [Keflex] 1,000 mg PO Q12HR #20 cap 10/21/15 Unknown Rx HYDROcodone/APAP 5-325 [[place] 1 each PO Q6HR PRN #10 tablet 08/12/16 Unknown Rx 5/325] cephALEXin [Keflex] 1,000 mg PO Q12HR #28 cap 08/12/16 Unknown Rx Mupirocin [Bactroban 2%] 1 applic TP TID 5 Days tube 08/18/16 Unknown Rx Sulfamethoxazole/Trimethoprim 1 each PO BID #20 tablet 06/23/17 Unknown Rx [Bactrim DS TAB] cephALEXin [Keflex] 500 mg PO QID #30 capsule 06/23/17 Unknown Rx metFORMIN [Glucophage] 500 mg PO BID #60 tablet 06/23/17 Unknown Rx traMADoL [Ultram 50 MG tab] 50 mg PO Q6HR PRN #20 tablet 06/23/17 Unknown Rx Sulfamethoxazole/Trimethoprim 1 each PO BID 10 Days #20 tablet 10/17/18 Unknown Rx [Bactrim DS TAB] cephALEXin [Keflex] 500 mg PO Q6HR 10 Days #40 capsule 10/17/18 Unknown Rx Active Meds: Active Medications Acetaminophen (Tylenol) 650 mg PO Q4H PRN PRN Reason: Pain MILD(1-3)/Fever >100.5/THORNTON Albuterol (Proventil) 2.5 mg IH Q4HRT PRN PRN Reason: Shortness Of Breath Dextrose (D50w (25gm) Syringe) 50 ml IV Q30MIN PRN; Protocol PRN Reason: Hypoglycemia Vancomycin HCl 750 mg/ Sodium (Chloride) 265 mls @ 166.667 mls/hr IV Q12H [facility] Last Admin: 10/20/19 08:18 Dose: 166.667 mls/hr Documented by: Insulin Human Lispro (Humalog) 0 unit SUB-Q Q6H [facility]; Protocol Last Admin: 10/20/19 05:14 Dose: 4 unit Documented by: Lisinopril (Zestril) 2.5 mg PO QDAY [facility] Last Admin: 10/19/19 19:00 Dose: 2.5 mg Documented by: Ondansetron HCl (Zofran) 4 mg IV Q8H PRN PRN Reason: Nausea And Vomiting Oxycodone/Acetaminophen (Percocet 5/325) 1 tab PO Q6H PRN PRN Reason: Pain, Moderate (4-6) Sodium Chloride (Sodium Chloride Flush Syringe 10 Ml) 10 ml IV BID [facility] Last Admin: 10/19/19 22:42 Dose: 10 ml Documented by: Sodium Chloride (Sodium Chloride Flush Syringe 10 Ml) 10 ml IV PRN PRN PRN Reason: LINE FLUSH Review of Systems - Constitutional no fever, no chills, no chronic pain - Cardiovascular no chest pain, no shortness of breath - Respiratory no cough - Gastrointestinal no abdominal pain - Muskuloskeletal no low back pain right: foot pain, foot swelling - Integumentary redness, wounds, darkening of skin (Right fourth toe) Exam Vital Signs Temp Pulse Resp BP Pulse Ox 98.7 F 112 H 16 130/82 97 10/19/19 09:46 10/19/19 09:46 10/19/19 09:46 10/19/19 09:46 10/19/19 09:46 - General physical appearance Positive: no distress, no pain, other (Citizen Of [place]-speaking) - Eyes Positive: normal occular movement - Respiratory Positive: normal expansion, normal respiratory effort - Cardiovascular Rhythm: regular - Extremities Extremities: pulses intact Extremity abnormal: edema (Mild in right foot), erythema (Right forefoot), black (Portion of right fourth toe. It is dry.), other (Open wound and purulent drainage are noted at the base of the fourth toe.) - Neurologic Neurologic: alert and oriented to time, place and person - Psychiatric Psychiatric: appropriate mood/affect, intact judgment & insight, cooperative Results - Labs 10/20/19 04:58 10/20/19 04:58 Abnormal lab results 10/19/19 10/19/19 10/19/19 Range/Units 10:03 10:10 10:10 WBC 14.7 H (4.5-11.0) K/mm3 RDW 12.3 L (13.2-15.2) % Lymph % (Auto) 7.6 L (13.4-35.0) % [place] % (Auto) (0.0-7.3) % Lymph # 1.1 L (1.2-5.4) K/mm3 [place] # (0.0-0.8) K/mm3 Seg Neutrophils % 85.7 H (40.0-70.0) % Seg Neutrophils # 12.6 H (1.8-7.7) K/mm3 VBG pH (7.320-7.420) Sodium 131 L (137-145) mmol/L Potassium (3.6-5.0) mmol/L Chloride 91.8 L (98-107) mmol/L Creatinine 0.7 L (0.8-1.3) mg/dL Glucose 503 H* (75-100) mg/dL POC Glucose 446 H (70-105) Alkaline Phosphatase 173 H (35-129) units/L Albumin 2.9 L (3.9-5) g/dL 10/19/19 10/19/19 10/19/19 Range/Units 10:10 17:44 22:48 WBC (4.5-11.0) K/mm3 RDW (13.2-15.2) % Lymph % (Auto) (13.4-35.0) % [place] % (Auto) (0.0-7.3) % Lymph # (1.2-5.4) K/mm3 [place] # (0.0-0.8) K/mm3 Seg Neutrophils % (40.0-70.0) % Seg Neutrophils # (1.8-7.7) K/mm3 VBG pH 7.432 H (7.320-7.420) Sodium (137-145) mmol/L Potassium (3.6-5.0) mmol/L Chloride (98-107) mmol/L Creatinine (0.8-1.3) mg/dL Glucose (75-100) mg/dL POC Glucose 295 H 311 H (70-105) Alkaline Phosphatase (35-129) units/L Albumin (3.9-5) g/dL 10/20/19 10/20/19 10/20/19 Range/Units 03:29 04:58 04:58 WBC 14.6 H (4.5-11.0) K/mm3 RDW 12.2 L (13.2-15.2) % Lymph % (Auto) 9.3 L (13.4-35.0) % [place] % (Auto) 7.8 H (0.0-7.3) % Lymph # (1.2-5.4) K/mm3 [place] # 1.1 H (0.0-0.8) K/mm3 Seg Neutrophils % 81.7 H (40.0-70.0) % Seg Neutrophils # 12.0 H (1.8-7.7) K/mm3 VBG pH (7.320-7.420) Sodium (137-145) mmol/L Potassium 3.3 L D (3.6-5.0) mmol/L Chloride (98-107) mmol/L Creatinine 0.6 L (0.8-1.3) mg/dL Glucose 168 H (75-100) mg/dL POC Glucose 218 H (70-105) Alkaline Phosphatase (35-129) units/L Albumin (3.9-5) g/dL 10/20/19 Range/Units 05:27 WBC (4.5-11.0) K/mm3 RDW (13.2-15.2) % Lymph % (Auto) (13.4-35.0) % [place] % (Auto) (0.0-7.3) % Lymph # (1.2-5.4) K/mm3 [place] # (0.0-0.8) K/mm3 Seg Neutrophils % (40.0-70.0) % Seg Neutrophils # (1.8-7.7) K/mm3 VBG pH (7.320-7.420) Sodium (137-145) mmol/L Potassium (3.6-5.0) mmol/L Chloride (98-107) mmol/L Creatinine (0.8-1.3) mg/dL Glucose (75-100) mg/dL POC Glucose 155 H (70-105) Alkaline Phosphatase (35-129) units/L Albumin (3.9-5) g/dL Diabetes panel 10/19/19 10/20/19 Range/Units 10:10 04:58 Sodium 131 L 138 D (137-145) mmol/L Potassium 4.7 3.3 L D (3.6-5.0) mmol/L Chloride 91.8 L 99.8 (98-107) mmol/L Carbon Dioxide 24 27 (22-30) mmol/L BUN 14 9 (9-20) mg/dL Creatinine 0.7 L 0.6 L (0.8-1.3) mg/dL Glucose 503 H* 168 H (75-100) mg/dL Calcium 8.4 8.4 (8.4-10.2) mg/dL AST 11 (5-40) units/L ALT 13 (7-56) units/L Alkaline Phosphatase 173 H (35-129) units/L Total Protein 6.6 (6.3-8.2) g/dL Albumin 2.9 L (3.9-5) g/dL Calcium panel 10/19/19 10/20/19 Range/Units 10:10 04:58 Calcium 8.4 8.4 (8.4-10.2) mg/dL Albumin 2.9 L (3.9-5) g/dL Pituitary panel 10/19/19 10/20/19 Range/Units 10:10 04:58 Sodium 131 L 138 D (137-145) mmol/L Potassium 4.7 3.3 L D (3.6-5.0) mmol/L Chloride 91.8 L 99.8 (98-107) mmol/L Carbon Dioxide 24 27 (22-30) mmol/L BUN 14 9 (9-20) mg/dL Creatinine 0.7 L 0.6 L (0.8-1.3) mg/dL Glucose 503 H* 168 H (75-100) mg/dL Calcium 8.4 8.4 (8.4-10.2) mg/dL Adrenal panel 10/19/19 10/20/19 Range/Units 10:10 04:58 Sodium 131 L 138 D (137-145) mmol/L Potassium 4.7 3.3 L D (3.6-5.0) mmol/L Chloride 91.8 L 99.8 (98-107) mmol/L Carbon Dioxide 24 27 (22-30) mmol/L BUN 14 9 (9-20) mg/dL Creatinine 0.7 L 0.6 L (0.8-1.3) mg/dL Glucose 503 H* 168 H (75-100) mg/dL Calcium 8.4 8.4 (8.4-10.2) mg/dL Total Bilirubin 0.50 (0.1-1.2) mg/dL AST 11 (5-40) units/L ALT 13 (7-56) units/L Alkaline Phosphatase 173 H (35-129) units/L Total Protein 6.6 (6.3-8.2) g/dL Albumin 2.9 L (3.9-5) g/dL - Imaging Additional studies: reviewed report of CTA. Assessment and Plan - Patient Problems (1) Diabetic infection of right foot Current Visit: Yes Status: Acute Plan to address problem: Pt stable. The patient has a soft tissue infection at the base of the right fourth toe. A portion of the right fourth toe has dry gangrene. Patient in need of incision, drainage, and debridement of the base of the right fourth toe. Procedure, risk, benefits were discussed. All questions were answered. Consent was obtained. Original plan was to proceed to the operating room today. However, there was no time available in the OR. Plan was made for OR tomorrow. Interview conducted with phone candle wrapper #[id number] Please call with questions. Time=40min
[2019-10-20] MEDS: LISINOPRIL 5 MG TAB PO SCH (10:14)
--- NOTE | 2019-10-20 13:23 | Progress Note ---
Assessment and Plan - Patient Problems (1) Systemic inflammatory response syndrome Current Visit: Yes Status: Acute Plan to address problem: CBC, CMP, IV antibiotic therapy, IV fluid resuscitation therapy, supportive care. (2) Uncontrolled diabetes mellitus Current Visit: Yes Status: Acute Qualifiers: Diabetes mellitus type: type 1 Plan to address problem: Sliding scale insulin therapy, Accu-Chek, consistent carbohydrate diet, hypoglycemia protocol. (3) Noncompliance with medication regimen Current Visit: Yes Status: Acute Plan to address problem: Patient counseled, patient knowledges understanding instructions. (4) Cellulitis Current Visit: Yes Status: Acute Qualifiers: Site of cellulitis of extremity: lower extremity Laterality: right Plan to address problem: CBC, CMP, IV antibiotic therapy, repeat CBC in a.m. (5) Diabetic infection of right foot Current Visit: Yes Status: Acute Plan to address problem: CBC, CMP, IV antibiotic therapy, CT right lower extremity reviewed, pain control, supportive care. (6) Osteomyelitis due to type 1 diabetes mellitus Current Visit: Yes Status: Suspected Plan to address problem: CT scan right lower extremity reviewed, surgical team consulted. Surgical intervention as per surgical team. (7) DVT prophylaxis Current Visit: Yes Status: Acute Plan to address problem: SCD to bilateral lower extremities while in bed, History Interval history: 39 YO Male HD #2 with SIRS, Diabetic Foot Infection, Cellulitis, as well as suspected osteomyelitis to the right fourth toe. Patient is resting comfortably in bed. Patient states that pain is controlled. No reported nursing events overnight. Patient has palpable pulses to bilateral lower extremities. Hospitalist Physical - Constitutional Vitals: Temp Pulse Resp BP Pulse Ox 98.7 F 92 H 18 136/77 97 10/20/19 11:20 10/20/19 11:20 10/20/19 11:20 10/20/19 11:00 10/20/19 11:20 General appearance: Present: mild distress - EENT Eyes: Present: PERRL, EOM intact ENT: hearing intact - Neck Neck: Present: supple - Respiratory Respiratory: bilateral: CTA - Cardiovascular Rhythm: regular Heart Sounds: Present: S1 & S2 - Extremities Extremities: pulses symmetrical Extremity abnormal: edema, ulceration, erythema, black Peripheral Pulses: within normal limits - Abdominal General gastrointestinal: soft, non-tender, non-distended - Integumentary Integumentary: Present: clear, warm, dry - Psychiatric Psychiatric: appropriate mood/affect, cooperative - Neurologic Neurologic: CNII-XII intact Results - Labs CBC & Chem 7: 10/20/19 04:58 10/20/19 04:58 Labs: Laboratory Last Values WBC 14.6 K/mm3 (4.5-11.0) H 10/20/19 04:58 RBC 4.09 M/mm3 (3.65-5.03) 10/20/19 04:58 Hgb 12.0 gm/dl (11.8-15.2) 10/20/19 04:58 Hct 36.2 % (35.5-45.6) 10/20/19 04:58 MCV 89 fl (84-94) 10/20/19 04:58 MCH 29 pg (28-32) 10/20/19 04:58 MCHC 33 % (32-34) 10/20/19 04:58 RDW 12.2 % (13.2-15.2) L 10/20/19 04:58 Plt Count 323 K/mm3 (140-440) 10/20/19 04:58 Lymph % (Auto) 9.3 % (13.4-35.0) L 10/20/19 04:58 [place] % (Auto) 7.8 % (0.0-7.3) H 10/20/19 04:58 Eos % (Auto) 0.6 % (0.0-4.3) 10/20/19 04:58 Baso % (Auto) 0.6 % (0.0-1.8) 10/20/19 04:58 Lymph # 1.4 K/mm3 (1.2-5.4) 10/20/19 04:58 [place] # 1.1 K/mm3 (0.0-0.8) H 10/20/19 04:58 Eos # 0.1 K/mm3 (0.0-0.4) 10/20/19 04:58 Baso # 0.1 K/mm3 (0.0-0.1) 10/20/19 04:58 Seg Neutrophils % 81.7 % (40.0-70.0) H 10/20/19 04:58 Seg Neutrophils # 12.0 K/mm3 (1.8-7.7) H 10/20/19 04:58 PT 14.0 Sec. (12.2-14.9) 10/19/19 10:10 INR 1.07 (0.87-1.13) 10/19/19 10:10 VBG pH 7.432 (7.320-7.420) H 10/19/19 10:10 Sodium 138 mmol/L (137-145) D 10/20/19 04:58 Potassium 3.3 mmol/L (3.6-5.0) L D 10/20/19 04:58 Chloride 99.8 mmol/L (98-107) 10/20/19 04:58 Carbon Dioxide 27 mmol/L (22-30) 10/20/19 04:58 Anion Gap 15 mmol/L 10/20/19 04:58 BUN 9 mg/dL (9-20) 10/20/19 04:58 Creatinine 0.6 mg/dL (0.8-1.3) L 10/20/19 04:58 Estimated GFR > 60 ml/min 10/20/19 04:58 BUN/Creatinine Ratio 15 % 10/20/19 04:58 Glucose 168 mg/dL (75-100) H 10/20/19 04:58 POC Glucose 310 (70-105) H 10/20/19 11:58 Lactic Acid 1.30 mmol/L (0.7-2.0) 10/19/19 14:50 Calcium 8.4 mg/dL (8.4-10.2) 10/20/19 04:58 Total Bilirubin 0.50 mg/dL (0.1-1.2) 10/19/19 10:10 AST 11 units/L (5-40) 10/19/19 10:10 ALT 13 units/L (7-56) 10/19/19 10:10 Alkaline Phosphatase 173 units/L (35-129) H 10/19/19 10:10 Total Protein 6.6 g/dL (6.3-8.2) 10/19/19 10:10 Albumin 2.9 g/dL (3.9-5) L 10/19/19 10:10 Albumin/Globulin Ratio 0.8 % 10/19/19 10:10 Microbiology: Microbiology 10/19/19 10:10 Peripheral/Venous Blood Culture - Preliminary NO GROWTH AFTER 24 HOURS 10/19/19 10:10 Peripheral/Venous Blood Culture - Preliminary NO GROWTH AFTER 24 HOURS Moe/IV: Voiding Method Urinal IV Catheter Type [Left INT / Saline Lock Antecubital] Active Medications - Current Medications Current Medications: Generic Name Dose Route Start Last Admin Trade Name Freq PRN Reason Stop Dose Admin Acetaminophen 650 mg 10/19/19 16:43 Tylenol PO Q4H PRN Pain MILD(1-3)/Fever >100.5/THORNTON Albuterol 2.5 mg 10/19/19 16:43 Proventil IH Q4HRT PRN Shortness Of Breath Dextrose 50 ml 10/19/19 16:46 D50w (25gm) Syringe IV Q30MIN PRN Hypoglycemia Protocol Vancomycin HCl 1 gm in 250 mls @ 166.667 mls/hr 10/20/19 20:00 Vancomycin/Ns 1 Gm/250 Ml IV Q12H [facility] Insulin Human Lispro 0 unit 10/19/19 17:00 10/20/19 11:58 Humalog SUB-Q 12 unit Q6H [facility] Administration Protocol Lisinopril 2.5 mg 10/19/19 10:00 10/20/19 10:14 Zestril PO 2.5 mg QDAY [facility] Administration Ondansetron HCl 4 mg 10/19/19 16:43 Zofran IV Q8H PRN Nausea And Vomiting Oxycodone/Acetaminophen 1 tab 10/19/19 16:43 Percocet 5/325 PO Q6H PRN Pain, Moderate (4-6) Sodium Chloride 10 ml 10/19/19 22:00 10/20/19 10:17 Sodium Chloride Flush Syringe 10 Ml IV 10 ml BID [facility] Administration Sodium Chloride 10 ml 10/19/19 16:43 Sodium Chloride Flush Syringe 10 Ml IV PRN PRN LINE FLUSH
[2019-10-20] MEDS: oxyCODONE /ACETAMINOPHEN 5-325MG TAB PO PRN (21:44)
[2019-10-20] MEDS: VANCOMYCIN/NS 1 GM/250 ML 1 GM/250 ML BAG IV SCH (21:51)
[2019-10-21] MEDS: INSULIN LISPRO 100 UNIT/ML VIAL 3 mL SUB-Q SCH ×5 (00:39→23:27)
[2019-10-21] MEDS: VANCOMYCIN/NS 1 GM/250 ML 1 GM/250 ML BAG IV SCH ×3 (05:52→20:59)
--- NOTE | 2019-10-21 08:13 | Anesthesia Consultation ---
Anesthesia Consult and Med Hx Date of service: 10/21/19 - Airway Anesthetic Teeth Evaluation: Good ROM Head & Neck: Adequate Mental/Hyoid Distance: Adequate Mallampati Class: Class III Intubation Access Assessment: Possibly Difficult - Pulmonary Exam CTA: Yes - Cardiac Exam Cardiac Exam: RRR - Pre-Operative Health Status ASA Pre-Surgery Classification: ASA3 Proposed Anesthetic Plan: MAC - Pulmonary Hx Smoking: No Hx Respiratory Symptoms: No - Cardiovascular System Hx Hypertension: No Hx Heart Attack/AMI: No Hx Percutaneous Transluminal Coronary Angioplasty (PTCA): No - Central Nervous System CVA: No - Endocrine Hx Renal Disease: No Hx Liver Disease: No Hx Insulin Dependent Diabetes: Yes (poorly controlled) Hx Thyroid Disease: No - Hematic Hx Anemia: No - Other Systems Hx Obesity: No - Additional Comments Anesthesia Medical History Comments: No hx anesthetic complications. office machines wirer via language line used for interview and consent.
--- NOTE | 2019-10-21 08:13 | Anesthesia Day of Surgery ---
Anesthesia Day of Surgery - Day of Surgery Patient Examined: Yes Patient H&P Reviewed: Yes Patient is NPO: Yes
[2019-10-21] MEDS ORDERED: MIDAZOLAM 2 MG/2 ML INJ ONE (08:25)
[2019-10-21] MEDS ORDERED: SODIUM CHLORIDE 0.9% 1000 ML 1,000 ML ONE (08:25)
[2019-10-21] MEDS ORDERED: HYDROmorphone 1 MG/1 ML INJ IV PRN (08:30)
[2019-10-21] MEDS: SODIUM CHLORIDE 0.9% 1000 ML 1,000 ML IV SCH (08:35)
[2019-10-21] MEDS ORDERED: LIDOCAINE (1%) 10 MG/1 ML VIAL 20 ML MDV ONE (08:44)
[2019-10-21] MEDS ORDERED: BUPIVACAINE-EPINEPHRINE/PF 0.5%-1:200,000 (30 ML) VIAL INFILTRATI ONE (08:44)
[2019-10-21] MEDS ORDERED: BUPIVACAINE/PF (0.5%) 5 MG/1 ML 30 ML VIAL INFILTRATI ONE (08:44)
[2019-10-21] MEDS ORDERED: propofoL 200 MG/20 ML VIAL IV ONE (08:52)
[2019-10-21] MEDS ORDERED: ONDANSETRON 4 MG/2 ML INJ ONE (08:58)
[2019-10-21] MEDS ORDERED: MIDAZOLAM 2 MG/2 ML INJ IV NR (09:00)
[2019-10-21] MEDS ORDERED: fentaNYL 100 MCG/2 ML INJ ONE (09:02)
[2019-10-21] MEDS ORDERED: SODIUM CHLORIDE 0.9% IRR 1,500 ML BOTTLE IR ONE (09:30)
[2019-10-21] MEDS ORDERED: PHENYLEPHRINE/NS 1,000 MCG/10 ML SYRINGE (OR USE) IV ONE (09:41)
--- NOTE | 2019-10-21 09:43 | Post Operative Note ---
Date of procedure: 10/21/19 (dictation:[id number]) Pre-op diagnosis: right 4th toe diabetic foot infection Post-op diagnosis: same Findings: extensive purulent fluid and ischemic tissue around the base of the 4th toe and extending into the forefoot. Procedure: I&D, debridement of right 4th toe diabetic foot infection. IVF 650cc EBL min Anesthesia: GETA Surgeon: RAQUEL PICHARDO Estimated blood loss: minimal Pathology: list (culture swabs and excised ischemic skin tissue) Specimen disposition: to lab Condition: stable Disposition: PACU
[2019-10-21] MEDS: LISINOPRIL 5 MG TAB PO SCH (10:00)
--- NOTE | 2019-10-21 11:34 | Post Anesthesia Evaluation ---
- Post Anesthesia Evaluation Patient Participated: Yes Airway Patent: Yes Stable Respiratory Function: Yes Nausea/Vomiting: No Temp > 96.8F: Yes Pain Manageable: Yes Adequeate Hydration: Yes Anesthesia Complications: No
--- NOTE | 2019-10-21 13:06 | Operative Report ---
PREOPERATIVE DIAGNOSIS: Right fourth toe diabetic foot infection. POSTOPERATIVE DIAGNOSIS: Right fourth toe diabetic foot infection. PROCEDURE: Incision, drainage, and debridement of right foot diabetic infection. ATTENDING PHYSICIAN: Indra Jaime MD ANESTHESIA: General. ESTIMATED BLOOD LOSS: Minimal. FLUIDS: 650 mL. FINDINGS: Extensive purulent fluid and ischemic tissue around the base of the fourth toe. There was a dry gangrenous section on the tip of the fourth toe. The purulent fluid extended into the forefoot and ischemic tissue was found around the base of the fourth toe and it seemed to be extending on either side. SPECIMENS: Culture swabs and portions of skin and subcutaneous tissue. DRAINS: None. COMPLICATIONS: None. DISPOSITION: Stable, transferred to Recovery Room. INDICATIONS: This is a 39-year-old male who presented to the Emergency Department with complaints of right foot pain and swelling. The patient was assessed to have a diabetic foot infection in need of incision and drainage and debridement via phone operating room assistant. Procedure, risks, benefits were discussed. All questions were answered. Consent was obtained. OPERATIVE NOTE: The patient was brought to the operating room and placed on the table in supine position. After adequate general anesthesia was established, the patient was prepped and draped in usual sterile fashion. Antibiotics had already been given. SCD was on the left leg. Time-out was called. I began by examining the area. The base of the fourth toe, loose ischemic skin was excised off, underneath we could see the necrotic foul-smelling subcutaneous tissue. This was excised. Pressure applied to the fourth metatarsal and milking that area up to the toe revealed purulent fluid. All this was probed. We ultimately ended up excising off the gangrenous portion of the skin over the fourth toe, some of the skin around the base of the toe and on the plantar surface of the foot. Eventually, it seemed as though there would not be enough skin to keep the fourth toe. Also, I was concerned that perhaps the infection/ischemia was extending into the neighboring toes as well. At this point, I thought he most likely will need at least one, if not a few toes, amputated. This I would have to get my colleague; Dr. Elbert Noel to see the patient and evaluate. I therefore decided that rather than continue to excise tissue, it would be best just to make sure that all the areas were decompressed as much as possible and any obvious gangrenous tissue was removed. We did all this. We then packed the wound with iodoform gauze and placed additional dressings. The patient tolerated the procedure well. There were no complications. Please note the purulent fluid, we did culture swabs and we sent all the tissue for pathology evaluation. JOB# [id number] ARTEM/THOMAS
--- NOTE | 2019-10-21 14:05 | Consultation ---
History of Present Illness Consult date: 10/21/19 - History of present illness History of present illness: 39 yo diabetic male s/p I&D of right 4th toe abscess today. He does not smoke. Past History Past Medical History: diabetes Past Surgical History: No surgical history, Other (Reviewed) Social history: single. denies: smoking, alcohol abuse Family history: diabetes, hypertension Medications and Allergies Allergies Allergy/AdvReac Type Severity Reaction Status Date / Time No Known Allergies Allergy Verified 06/23/17 09:20 Home Medications Medication Instructions Recorded Confirmed Last Taken Type HYDROcodone/APAP 7.5-325 [[place] 1 each PO Q6HR PRN #20 tablet 10/21/15 10/21/19 Unknown Rx 7.5/325] cephALEXin [Keflex] 1,000 mg PO Q12HR #20 cap 10/21/15 10/21/19 Unknown Rx HYDROcodone/APAP 5-325 [[place] 1 each PO Q6HR PRN #10 tablet 08/12/16 10/21/19 Unknown Rx 5/325] cephALEXin [Keflex] 1,000 mg PO Q12HR #28 cap 08/12/16 10/21/19 Unknown Rx Mupirocin [Bactroban 2%] 1 applic TP TID 5 Days tube 08/18/16 10/21/19 Unknown Rx Sulfamethoxazole/Trimethoprim 1 each PO BID #20 tablet 06/23/17 10/21/19 Unknown Rx [Bactrim DS TAB] cephALEXin [Keflex] 500 mg PO QID #30 capsule 06/23/17 10/21/19 Unknown Rx metFORMIN [Glucophage] 500 mg PO BID #60 tablet 06/23/17 10/21/19 Unknown Rx traMADoL [Ultram 50 MG tab] 50 mg PO Q6HR PRN #20 tablet 06/23/17 10/21/19 Unkn own Rx Sulfamethoxazole/Trimethoprim 1 each PO BID 10 Days #20 tablet 10/17/18 10/21/19 Unknown Rx [Bactrim DS TAB] cephALEXin [Keflex] 500 mg PO Q6HR 10 Days #40 capsule 10/17/18 10/21/19 Unknown Rx Active Meds: Active Medications Acetaminophen (Tylenol) 650 mg PO Q4H PRN PRN Reason: Pain MILD(1-3)/Fever >100.5/THORNTON Albuterol (Proventil) 2.5 mg IH Q4HRT PRN PRN Reason: Shortness Of Breath Dextrose (D50w (25gm) Syringe) 50 ml IV Q30MIN PRN; Protocol PRN Reason: Hypoglycemia Hydromorphone HCl (Dilaudid) 0.5 mg IV Q10MIN PRN PRN Reason: Pain , Severe (7-10) Stop: 10/21/19 17:00 Vancomycin HCl (Vancomycin/Ns 1 Gm/250 Ml) 1 gm in 250 mls @ 166.667 mls/hr IV Q12H [facility] Last Admin: 10/21/19 08:48 Dose: Not Given Documented by: Sodium Chloride (Nacl 0.9% 1000 Ml) 1,000 mls @ 100 mls/hr IV DIRECT [facility] Last Admin: 10/21/19 08:35 Dose: 100 mls/hr Documented by: Insulin Human Lispro (Humalog) 0 unit SUB-Q Q6H [facility]; Protocol Last Admin: 10/21/19 11:00 Dose: Not Given Documented by: Lisinopril (Zestril) 2.5 mg PO QDAY [facility] Last Admin: 10/20/19 10:14 Dose: 2.5 mg Documented by: Midazolam HCl (Versed) 2 mg IV PREOP NR Stop: 10/21/19 23:59 Last Admin: 10/21/19 08:37 Dose: 2 mg Documented by: Ondansetron HCl (Zofran) 4 mg IV Q8H PRN PRN Reason: Nausea And Vomiting Oxycodone/Acetaminophen (Percocet 5/325) 1 tab PO Q6H PRN PRN Reason: Pain, Moderate (4-6) Last Admin: 10/20/19 21:44 Dose: 1 tab Documented by: Sodium Chloride (Sodium Chloride Flush Syringe 10 Ml) 10 ml IV BID [facility] Last Admin: 10/20/19 21:51 Dose: 10 ml Documented by: Sodium Chloride (Sodium Chloride Flush Syringe 10 Ml) 10 ml IV PRN PRN PRN Reason: LINE FLUSH Review of Systems All systems: negative (none) Exam Vital Signs Temp Pulse Resp BP Pulse Ox 98.7 F 112 H 16 130/82 97 10/19/19 09:46 10/19/19 09:46 10/19/19 09:46 10/19/19 09:46 10/19/19 09:46 - General physical appearance Positive: well developed, well nourished, no distress - Eyes Positive: PERRL, normal occular movement - ENT Positive: normal pinna, normal nares, normal mucosa, no hearing loss, no congestion - Neck Positive: no masses, no bruits, trachea midline, no venous distension - Respiratory Positive: normal expansion, normal respiratory effort, clear to auscultation - Cardiovascular Rhythm: regular Heart Sounds: Present: S1 & S2. Absent: rub, click - Breasts Breasts: deferred - Abdomen Abdomen: Present: soft, bowel sounds normal. Absent: tender, distended Hernia: none - Genitourinary Male Genitourinary: deferred - Integumentary other (Pt has I&D wounds on either side of his right 4th toe. The soft tissue covering the phalanx is gone and the exposed bone is obvious. There is no undrained abscess.) - Neurologic Neurologic: alert and oriented to time, place and person, motor strength and sensation are grossly intact - Musculoskeletal normal gait, normal posture - Psychiatric Psychiatric: appropriate mood/affect, intact judgment & insight Results - Labs 10/20/19 04:58 10/20/19 04:58 Abnormal lab results 10/20/19 10/21/19 10/21/19 Range/Units 18:14 00:46 06:24 POC Glucose 340 H 312 H 158 H (70-105) 10/21/19 10/21/19 Range/Units 08:34 10:22 POC Glucose 130 H 108 H (70-105) Assessment and Plan - Patient Problems (1) Diabetic infection of right foot Current Visit: Yes Status: Acute Plan to address problem: 1) Strict DM control 2) Local wound care 3) Wound care nurse consult 4) I have recommended TMA of the right 4th toe. Pt agrees. I will schedule this for 10/24/19.
--- NOTE | 2019-10-21 15:02 | Progress Note ---
Assessment and Plan - Patient Problems (1) Systemic inflammatory response syndrome Current Visit: Yes Status: Acute Plan to address problem: CBC, CMP, IV antibiotic therapy, IV fluid resuscitation therapy, supportive care. (2) Uncontrolled diabetes mellitus Current Visit: Yes Status: Acute Qualifiers: Diabetes mellitus type: type 1 Plan to address problem: Sliding scale insulin therapy, Accu-Chek, consistent carbohydrate diet, hypoglycemia protocol. (3) Noncompliance with medication regimen Current Visit: Yes Status: Acute Plan to address problem: Patient counseled, patient knowledges understanding instructions. (4) Cellulitis Current Visit: Yes Status: Acute Qualifiers: Site of cellulitis of extremity: lower extremity Laterality: right Plan to address problem: CBC, CMP, IV antibiotic therapy, repeat CBC in a.m. (5) Diabetic infection of right foot Current Visit: Yes Status: Acute Plan to address problem: CBC, CMP, IV antibiotic therapy, CT right lower extremity reviewed, pain control, supportive care. (6) Osteomyelitis due to type 1 diabetes mellitus Current Visit: Yes Status: Suspected Plan to address problem: surgical team consulted. Surgical intervention on Thursday as per surgical team. (7) DVT prophylaxis Current Visit: Yes Status: Acute Plan to address problem: SCD to bilateral lower extremities while in bed, History Interval history: 39 YO Male HD #3 with SIRS, Diabetic Foot Infection, Cellulitis, osteomyelitis to the right fourth toe. Patient is resting comfortably in bed. Patient states that pain is controlled. No reported nursing events overnight. Patient has palpable pulses to bilateral lower extremities. No reported nursing events. Patient is pending surgical intervention. Hospitalist Physical - Constitutional Vitals: Temp Pulse Resp BP Pulse Ox 98.4 F 111 H 20 135/82 98 10/21/19 13:00 10/21/19 13:00 10/21/19 13:00 10/21/19 13:00 10/21/19 10:15 General appearance: Present: mild distress - EENT Eyes: Present: PERRL, EOM intact ENT: hearing intact - Neck Neck: Present: supple - Respiratory Respiratory effort: normal Respiratory: bilateral: CTA - Cardiovascular Rhythm: regular Heart Sounds: Present: S1 & S2 - Extremities Extremities: no ischemia Extremity abnormal: edema, ulceration, erythema, black Peripheral Pulses: within normal limits - Abdominal General gastrointestinal: soft, non-tender, non-distended - Integumentary Integumentary: Present: clear, dry - Psychiatric Psychiatric: appropriate mood/affect, cooperative - Neurologic Neurologic: CNII-XII intact Results - Labs CBC & Chem 7: 10/20/19 04:58 10/20/19 04:58 Labs: Laboratory Last Values WBC 14.6 K/mm3 (4.5-11.0) H 10/20/19 04:58 RBC 4.09 M/mm3 (3.65-5.03) 10/20/19 04:58 Hgb 12.0 gm/dl (11.8-15.2) 10/20/19 04:58 Hct 36.2 % (35.5-45.6) 10/20/19 04:58 MCV 89 fl (84-94) 10/20/19 04:58 MCH 29 pg (28-32) 10/20/19 04:58 MCHC 33 % (32-34) 10/20/19 04:58 RDW 12.2 % (13.2-15.2) L 10/20/19 04:58 Plt Count 323 K/mm3 (140-440) 10/20/19 04:58 Lymph % (Auto) 9.3 % (13.4-35.0) L 10/20/19 04:58 [place] % (Auto) 7.8 % (0.0-7.3) H 10/20/19 04:58 Eos % (Auto) 0.6 % (0.0-4.3) 10/20/19 04:58 Baso % (Auto) 0.6 % (0.0-1.8) 10/20/19 04:58 Lymph # 1.4 K/mm3 (1.2-5.4) 10/20/19 04:58 [place] # 1.1 K/mm3 (0.0-0.8) H 10/20/19 04:58 Eos # 0.1 K/mm3 (0.0-0.4) 10/20/19 04:58 Baso # 0.1 K/mm3 (0.0-0.1) 10/20/19 04:58 Seg Neutrophils % 81.7 % (40.0-70.0) H 10/20/19 04:58 Seg Neutrophils # 12.0 K/mm3 (1.8-7.7) H 10/20/19 04:58 PT 14.0 Sec. (12.2-14.9) 10/19/19 10:10 INR 1.07 (0.87-1.13) 10/19/19 10:10 VBG pH 7.432 (7.320-7.420) H 10/19/19 10:10 Sodium 138 mmol/L (137-145) D 10/20/19 04:58 Potassium 3.3 mmol/L (3.6-5.0) L D 10/20/19 04:58 Chloride 99.8 mmol/L (98-107) 10/20/19 04:58 Carbon Dioxide 27 mmol/L (22-30) 10/20/19 04:58 Anion Gap 15 mmol/L 10/20/19 04:58 BUN 9 mg/dL (9-20) 10/20/19 04:58 Creatinine 0.6 mg/dL (0.8-1.3) L 10/20/19 04:58 Estimated GFR > 60 ml/min 10/20/19 04:58 BUN/Creatinine Ratio 15 % 10/20/19 04:58 Glucose 168 mg/dL (75-100) H 10/20/19 04:58 POC Glucose 108 (70-105) H 10/21/19 10:22 Lactic Acid 1.30 mmol/L (0.7-2.0) 10/19/19 14:50 Calcium 8.4 mg/dL (8.4-10.2) 10/20/19 04:58 Total Bilirubin 0.50 mg/dL (0.1-1.2) 10/19/19 10:10 AST 11 units/L (5-40) 10/19/19 10:10 ALT 13 units/L (7-56) 10/19/19 10:10 Alkaline Phosphatase 173 units/L (35-129) H 10/19/19 10:10 Total Protein 6.6 g/dL (6.3-8.2) 10/19/19 10:10 Albumin 2.9 g/dL (3.9-5) L 10/19/19 10:10 Albumin/Globulin Ratio 0.8 % 10/19/19 10:10 Coronavirus (PCR) Negative (Negative) 10/20/19 08:04 Microbiology: Microbiology 10/19/19 10:10 Peripheral/Venous Blood Culture - Preliminary NO GROWTH AFTER 48 HOURS 10/19/19 10:10 Peripheral/Venous Blood Culture - Preliminary NO GROWTH AFTER 48 HOURS Moe/IV: Voiding Method Urinal IV Catheter Type [Left INT / Saline Lock Antecubital] Active Medications - Current Medications Current Medications: Generic Name Dose Route Start Last Admin Trade Name Freq PRN Reason Stop Dose Admin Acetaminophen 650 mg 10/19/19 16:43 Tylenol PO Q4H PRN Pain MILD(1-3)/Fever >100.5/THOR[place]ON Albuterol 2.5 mg 10/19/19 16:43 Proventil IH Q4HRT PRN Shortness Of Breath Dextrose 50 ml 10/19/19 16:46 D50w (25gm) Syringe IV Q30MIN PRN Hypoglycemia Protocol Hydromorphone HCl 0.5 mg 10/21/19 08:30 Dilaudid IV 10/21/19 17:00 Q10MIN PRN Pain , Severe (7-10) Vancomycin HCl 1 gm in 250 mls @ 166.667 mls/hr 10/20/19 20:00 10/21/19 08:48 Vancomycin/Ns 1 Gm/250 Ml IV Not Given Q12H JCARL[facility] Sodium Chloride 1,000 mls @ 100 mls/hr 10/21/19 09:00 10/21/19 08:35 Nacl 0.9% 1000 Ml IV 100 mls/hr DIRECT [facility]CARL[facility] Administration Insulin Human Lispro 0 unit 10/19/19 17:00 10/21/19 11:00 Humalog SUB-Q Not Given Q6H [facility]CAR[facility] Protocol Lisinopril 2.5 mg 10/19/19 10:00 10/20/19 10:14 Zestril PO 2.5 mg QDAY JCARLOS Administration Midazolam HCl 2 mg 10/21/19 09:00 10/21/19 08:37 Versed IV 10/21/19 23:59 2 mg PREOP NR Administration Ondansetron HCl 4 mg 10/19/19 16:43 Zofran IV Q8H PRN Nausea And Vomiting Oxycodone/Acetaminophen 1 tab 10/19/19 16:43 10/20/19 21:44 Percocet 5/325 PO 1 tab Q6H PRN Administration Pain, Moderate (4-6) Sodium Chloride 10 ml 10/19/19 22:00 10/20/19 21:51 Sodium Chloride Flush Syringe 10 Ml IV 10 ml BID JCARLOS Administration Sodium Chloride 10 ml 10/19/19 16:43 Sodium Chloride Flush Syringe 10 Ml IV PRN PRN LINE FLUSH
--- NOTE | 2019-10-21 17:32 | Vascular Lab Report ---
DUPLEX DOPPLER LOWER EXTREMITY ARTERIAL, RIGHT INDICATION: right foot abscess. TECHNIQUE: Arterial duplex examination of the right lower extremity performed using B-mode, color flow and spect ral Doppler assessment. FINDINGS: RIGHT: Peak systolic velocities are within normal limits. There is monophasic waveform within the right anterior tibial artery. Wave forms are otherwise unrema rkable. Mild atherosclerotic calcification is noted. IMPRESSION: 1. Monophasic waveform within the right anterior tibial artery. Waveforms are otherwise unremarkable. Signer Name: Kirk Hunter MD Signed: 10/21/2019 5:27 PM Workstation Name: [email or web address]
[2019-10-22] MEDS: SODIUM CHLORIDE 0.9% 1000 ML 1,000 ML IV SCH ×3 (00:52→21:22)
[2019-10-22] MEDS: INSULIN LISPRO 100 UNIT/ML VIAL 3 mL SUB-Q SCH ×4 (06:07→22:16)
[2019-10-22] MEDS: VANCOMYCIN/NS 1 GM/250 ML 1 GM/250 ML BAG IV SCH ×2 (08:48→21:21)
[2019-10-22] MEDS: LISINOPRIL 5 MG TAB PO SCH (10:13)
--- NOTE | 2019-10-22 12:07 | Event Note ---
Date: 10/22/19 Patient chart reviewed. 39-year-old male status post I&D, debridement of right 4th toe diabetic foot infection, POD 1. Patient seen by Dr. Noel was consulted to evaluate patient for amputation of toe. Dr. Noel's notes were reviewed and recommendations appreciated. Patient is scheduled for right fourth toe TMA on 10/24/2019. Continue daily local wound care. six pack packer consulted. Will sign off and defer surgical management of fourth toe diabetic foot wound to Dr. Noel.
--- NOTE | 2019-10-22 14:51 | Progress Note ---
Assessment and Plan - Patient Problems (1) Systemic inflammatory response syndrome Current Visit: Yes Status: Acute Plan to address problem: CBC, CMP, IV antibiotic therapy, IV fluid resuscitation therapy, supportive care. (2) Uncontrolled diabetes mellitus Current Visit: Yes Status: Acute Qualifiers: Diabetes mellitus type: type 1 Plan to address problem: Sliding scale insulin therapy, Accu-Chek, consistent carbohydrate diet, hypoglycemia protocol. (3) Noncompliance with medication regimen Current Visit: Yes Status: Acute Plan to address problem: Patient counseled, patient knowledges understanding instructions. (4) Cellulitis Current Visit: Yes Status: Acute Qualifiers: Site of cellulitis of extremity: lower extremity Laterality: right Plan to address problem: CBC, CMP, IV antibiotic therapy, repeat CBC in a.m. (5) Diabetic infection of right foot Current Visit: Yes Status: Acute Plan to address problem: CBC, CMP, IV antibiotic therapy, CT right lower extremity reviewed, pain control, supportive care. (6) Osteomyelitis due to type 1 diabetes mellitus Current Visit: Yes Status: Suspected Plan to address problem: surgical team consulted. Surgical intervention on Thursday as per surgical team. (7) DVT prophylaxis Current Visit: Yes Status: Acute Plan to address problem: SCD to bilateral lower extremities while in bed, History Interval history: 39 YO Male HD #4 with SIRS, Diabetic Foot Infection, Cellulitis, osteomyelitis to the right fourth toe pending surgical amputation. Patient is resting comfortably in bed. Patient states that pain is controlled. No reported nursing events overnight. Patient has palpable pulses to bilateral lower extremities. No reported nursing events. Hospitalist Physical - Constitutional Vitals: Temp Pulse Resp BP Pulse Ox 98.6 F 77 18 136/77 96 10/22/19 11:22 10/22/19 11:22 10/22/19 11:22 10/22/19 11:22 10/22/19 11:22 General appearance: Present: mild distress - EENT Eyes: Present: PERRL, EOM intact ENT: hearing intact - Neck Neck: Present: supple - Respiratory Respiratory effort: normal Respiratory: bilateral: CTA - Cardiovascular Rhythm: regular Heart Sounds: Present: S1 & S2 - Extremities Extremities: no ischemia Extremity abnormal: edema, ulceration, erythema, black Peripheral Pulses: within normal limits - Abdominal General gastrointestinal: soft, non-tender, non-distended - Integumentary Integumentary: Present: clear - Psychiatric Psychiatric: appropriate mood/affect, cooperative - Neurologic Neurologic: CNII-XII intact Results - Labs CBC & Chem 7: 10/20/19 04:58 10/20/19 04:58 Labs: Laboratory Last Values WBC 14.6 K/mm3 (4.5-11.0) H 10/20/19 04:58 RBC 4.09 M/mm3 (3.65-5.03) 10/20/19 04:58 Hgb 12.0 gm/dl (11.8-15.2) 10/20/19 04:58 Hct 36.2 % (35.5-45.6) 10/20/19 04:58 MCV 89 fl (84-94) 10/20/19 04:58 MCH 29 pg (28-32) 10/20/19 04:58 MCHC 33 % (32-34) 10/20/19 04:58 RDW 12.2 % (13.2-15.2) L 10/20/19 04:58 Plt Count 323 K/mm3 (140-440) 10/20/19 04:58 Lymph % (Auto) 9.3 % (13.4-35.0) L 10/20/19 04:58 [place] % (Auto) 7.8 % (0.0-7.3) H 10/20/19 04:58 Eos % (Auto) 0.6 % (0.0-4.3) 10/20/19 04:58 Baso % (Auto) 0.6 % (0.0-1.8) 10/20/19 04:58 Lymph # 1.4 K/mm3 (1.2-5.4) 10/20/19 04:58 [place] # 1.1 K/mm3 (0.0-0.8) H 10/20/19 04:58 Eos # 0.1 K/mm3 (0.0-0.4) 10/20/19 04:58 Baso # 0.1 K/mm3 (0.0-0.1) 10/20/19 04:58 Seg Neutrophils % 81.7 % (40.0-70.0) H 10/20/19 04:58 Seg Neutrophils # 12.0 K/mm3 (1.8-7.7) H 10/20/19 04:58 PT 14.0 Sec. (12.2-14.9) 10/19/19 10:10 INR 1.07 (0.87-1.13) 10/19/19 10:10 VBG pH 7.432 (7.320-7.420) H 10/19/19 10:10 Sodium 138 mmol/L (137-145) D 10/20/19 04:58 Potassium 3.3 mmol/L (3.6-5.0) L D 10/20/19 04:58 Chloride 99.8 mmol/L (98-107) 10/20/19 04:58 Carbon Dioxide 27 mmol/L (22-30) 10/20/19 04:58 Anion Gap 15 mmol/L 10/20/19 04:58 BUN 9 mg/dL (9-20) 10/20/19 04:58 Creatinine 0.6 mg/dL (0.8-1.3) L 10/20/19 04:58 Estimated GFR > 60 ml/min 10/20/19 04:58 BUN/Creatinine Ratio 15 % 10/20/19 04:58 Glucose 168 mg/dL (75-100) H 10/20/19 04:58 POC Glucose 296 (70-105) H 10/22/19 11:39 Lactic Acid 1.30 mmol/L (0.7-2.0) 10/19/19 14:50 Calcium 8.4 mg/dL (8.4-10.2) 10/20/19 04:58 Total Bilirubin 0.50 mg/dL (0.1-1.2) 10/19/19 10:10 AST 11 units/L (5-40) 10/19/19 10:10 ALT 13 units/L (7-56) 10/19/19 10:10 Alkaline Phosphatase 173 units/L (35-129) H 10/19/19 10:10 Total Protein 6.6 g/dL (6.3-8.2) 10/19/19 10:10 Albumin 2.9 g/dL (3.9-5) L 10/19/19 10:10 Albumin/Globulin Ratio 0.8 % 10/19/19 10:10 Coronavirus (PCR) Negative (Negative) 10/20/19 08:04 Microbiology: Microbiology 10/19/19 10:10 Peripheral/Venous Blood Culture - Preliminary NO GROWTH AFTER 72 HOURS 10/19/19 10:10 Peripheral/Venous Blood Culture - Preliminary NO GROWTH AFTER 72 HOURS 10/21/19 Unknown Toe - Right Fourth Surgical Culture - Preliminary Moe/IV: Voiding Method Urinal IV Catheter Type [Left INT / Saline Lock Antecubital] Active Medications - Current Medications Current Medications: Generic Name Dose Route Start Last Admin Trade Name Freq PRN Reason Stop Dose Admin Acetaminophen 650 mg 10/19/19 16:43 Tylenol PO Q4H PRN Pain MILD(1-3)/Fever >100.5/THORNTON Albuterol 2.5 mg 10/19/19 16:43 Proventil IH Q4HRT PRN Shortness Of Breath Dextrose 50 ml 10/19/19 16:46 D50w (25gm) Syringe IV Q30MIN PRN Hypoglycemia Protocol Vancomycin HCl 1 gm in 250 mls @ 166.667 mls/hr 10/20/19 20:00 10/22/19 08:48 Vancomycin/Ns 1 Gm/250 Ml IV 166.667 mls/hr Q12H [facility] Administration Sodium Chloride 1,000 mls @ 100 mls/hr 10/21/19 09:00 10/22/19 10:12 Nacl 0.9% 1000 Ml IV 100 mls/hr DIRECT JCARLOS Administration Insulin Human Lispro 0 unit 10/19/19 17:00 10/22/19 12:15 Humalog SUB-Q 9 unit Q6H JCAR[facility] Administration Protocol Lisinopril 2.5 mg 10/19/19 10:00 10/22/19 10:13 Zestril PO 2.5 mg QDAY JCARL[facility] Administration Ondansetron HCl 4 mg 10/19/19 16:43 Zofran IV Q8H PRN Nausea And Vomiting Oxycodone/Acetaminophen 1 tab 10/19/19 16:43 10/20/19 21:44 Percocet 5/325 PO 1 tab Q6H PRN Administration Pain, Moderate (4-6) Sodium Chloride 10 ml 10/19/19 22:00 10/22/19 10:14 Sodium Chloride Flush Syringe 10 Ml IV Not Given BID JCARLOS Sodium Chloride 10 ml 10/19/19 16:43 Sodium Chloride Flush Syringe 10 Ml IV PRN PRN LINE FLUSH
[2019-10-22] MEDS: oxyCODONE /ACETAMINOPHEN 5-325MG TAB PO PRN (15:38)
[2019-10-23] MEDS: INSULIN LISPRO 100 UNIT/ML VIAL 3 mL SUB-Q SCH ×4 (05:36→23:09)
[2019-10-23] MEDS: VANCOMYCIN/NS 1 GM/250 ML 1 GM/250 ML BAG IV SCH ×3 (08:49→17:25)
[2019-10-23] MEDS: SODIUM CHLORIDE 0.9% 1000 ML 1,000 ML IV SCH (08:56)
[2019-10-23] MEDS: LISINOPRIL 5 MG TAB PO SCH (09:00)
[2019-10-23] MEDS ORDERED: INSULIN LISPRO 100 UNIT/ML VIAL 3 mL SUB-Q SCH (20:00)
--- NOTE | 2019-10-23 20:50 | Progress Note ---
Assessment and Plan - Patient Problems (1) Systemic inflammatory response syndrome Current Visit: Yes Status: Acute Plan to address problem: CBC, CMP, IV antibiotic therapy, IV fluid resuscitation therapy, supportive care. (2) Uncontrolled diabetes mellitus Current Visit: Yes Status: Acute Qualifiers: Diabetes mellitus type: type 1 Plan to address problem: Sliding scale insulin therapy, Accu-Chek, consistent carbohydrate diet, hypoglycemia protocol. (3) Noncompliance with medication regimen Current Visit: Yes Status: Acute Plan to address problem: Patient counseled, patient knowledges understanding instructions. (4) Cellulitis Current Visit: Yes Status: Acute Qualifiers: Site of cellulitis of extremity: lower extremity Laterality: right Plan to address problem: CBC, CMP, IV antibiotic therapy, repeat CBC in a.m. (5) Diabetic infection of right foot Current Visit: Yes Status: Acute Plan to address problem: CBC, CMP, IV antibiotic therapy, CT right lower extremity reviewed, pain control, supportive care. (6) Osteomyelitis due to type 1 diabetes mellitus Current Visit: Yes Status: Suspected Plan to address problem: surgical team consulted. Surgical intervention on Thursday as per surgical team. (7) DVT prophylaxis Current Visit: Yes Status: Acute Plan to address problem: SCD to bilateral lower extremities while in bed, History Interval history: 39 YO Male HD #5 with SIRS, Diabetic Foot Infection, Cellulitis, osteomyelitis to the right fourth toe pending surgical amputation. Patient is resting comfortably in bed. Patient states that pain is controlled. No reported nursing events overnight. NPO after midnight pending surgical intervention in am. Patient has palpable pulses to bilateral lower extremities. No reported n ursing events. Hospitalist Physical - Constitutional Vitals: Temp Pulse Resp BP Pulse Ox 99.4 F 90 18 127/75 97 10/23/19 16:25 10/23/19 16:25 10/23/19 16:25 10/23/19 16:25 10/23/19 16:25 General appearance: Present: mild distress - EENT Eyes: Present: PERRL, EOM intact - Respiratory Respiratory effort: normal Respiratory: bilateral: CTA - Cardiovascular Rhythm: regular Heart Sounds: Present: S1 & S2 - Extremities Extremity abnormal: edema, erythema, black Peripheral Pulses: within normal limits - Abdominal General gastrointestinal: soft, non-tender, non-distended - Integumentary Integumentary: Present: clear, dry - Psychiatric Psychiatric: appropriate mood/affect, cooperative - Neurologic Neurologic: CNII-XII intact Results - Labs CBC & Chem 7: 10/20/19 04:58 10/20/19 04:58 Labs: Laboratory Last Values WBC 14.6 K/mm3 (4.5-11.0) H 10/20/19 04:58 RBC 4.09 M/mm3 (3.65-5.03) 10/20/19 04:58 Hgb 12.0 gm/dl (11.8-15.2) 10/20/19 04:58 Hct 36.2 % (35.5-45.6) 10/20/19 04:58 MCV 89 fl (84-94) 10/20/19 04:58 MCH 29 pg (28-32) 10/20/19 04:58 MCHC 33 % (32-34) 10/20/19 04:58 RDW 12.2 % (13.2-15.2) L 10/20/19 04:58 Plt Count 323 K/mm3 (140-440) 10/20/19 04:58 Lymph % (Auto) 9.3 % (13.4-35.0) L 10/20/19 04:58 [place] % (Auto) 7.8 % (0.0-7.3) H 10/20/19 04:58 Eos % (Auto) 0.6 % (0.0-4.3) 10/20/19 04:58 Baso % (Auto) 0.6 % (0.0-1.8) 10/20/19 04:58 Lymph # 1.4 K/mm3 (1.2-5.4) 10/20/19 04:58 [place] # 1.1 K/mm3 (0.0-0.8) H 10/20/19 04:58 Eos # 0.1 K/mm3 (0.0-0.4) 10/20/19 04:58 Baso # 0.1 K/mm3 (0.0-0.1) 10/20/19 04:58 Seg Neutrophils % 81.7 % (40.0-70.0) H 10/20/19 04:58 Seg Neutrophils # 12.0 K/mm3 (1.8-7.7) H 10/20/19 04:58 PT 14.0 Sec. (12.2-14.9) 10/19/19 10:10 INR 1.07 (0.87-1.13) 10/19/19 10:10 VBG pH 7.432 (7.320-7.420) H 10/19/19 10:10 Sodium 138 mmol/L (137-145) D 10/20/19 04:58 Potassium 3.3 mmol/L (3.6-5.0) L D 10/20/19 04:58 Chloride 99.8 mmol/L (98-107) 10/20/19 04:58 Carbon Dioxide 27 mmol/L (22-30) 10/20/19 04:58 Anion Gap 15 mmol/L 10/20/19 04:58 BUN 9 mg/dL (9-20) 10/20/19 04:58 Creatinine 0.6 mg/dL (0.8-1.3) L 10/20/19 04:58 Estimated GFR > 60 ml/min 10/20/19 04:58 BUN/Creatinine Ratio 15 % 10/20/19 04:58 Glucose 168 mg/dL (75-100) H 10/20/19 04:58 POC Glucose 320 (70-105) H 10/23/19 20:51 Lactic Acid 1.30 mmol/L (0.7-2.0) 10/19/19 14:50 Calcium 8.4 mg/dL (8.4-10.2) 10/20/19 04:58 Total Bilirubin 0.50 mg/dL (0.1-1.2) 10/19/19 10:10 AST 11 units/L (5-40) 10/19/19 10:10 ALT 13 units/L (7-56) 10/19/19 10:10 Alkaline Phosphatase 173 units/L (35-129) H 10/19/19 10:10 Total Protein 6.6 g/dL (6.3-8.2) 10/19/19 10:10 Albumin 2.9 g/dL (3.9-5) L 10/19/19 10:10 Albumin/Globulin Ratio 0.8 % 10/19/19 10:10 Vancomycin Trough 6.0 ug/mL (5.0-20.0) 10/22/19 19:55 Coronavirus (PCR) Negative (Negative) 10/20/19 08:04 Microbiology: Microbiology 10/21/19 Unknown Toe - Right Fourth Anaerobic Culture - Preliminary 10/19/19 10:10 Peripheral/Venous Blood Culture - Preliminary NO GROWTH AFTER 4 DAYS 10/19/19 10:10 Peripheral/Venous Blood Culture - Preliminary NO GROWTH AFTER 4 DAYS 10/21/19 Unknown Toe - Right Fourth Surgical Culture - Preliminary [place] Albicans Moe/IV: Voiding Method Urinal IV Catheter Type [Left INT / Saline Lock Antecubital] Active Medications - Current Medications Current Medications: Generic Name Dose Route Start Last Admin Trade Name Freq PRN Reason Stop Dose Admin Acetaminophen 650 mg 10/19/19 16:43 Tylenol PO Q4H PRN Pain MILD(1-3)/Fever >100.5/THORNTON Albuterol 2.5 mg 10/19/19 16:43 Proventil IH Q4HRT PRN Shortness Of Breath Dextrose 50 ml 10/19/19 16:46 D50w (25gm) Syringe IV Q30MIN PRN Hypoglycemia Protocol Sodium Chloride 1,000 mls @ 100 mls/hr 10/21/19 09:00 10/23/19 08:56 Nacl 0.9% 1000 Ml IV 100 mls/hr DIRECT JCARLOS Administration Vancomycin HCl 1 gm in 250 mls @ 166.667 mls/hr 10/23/19 09:00 10/23/19 17:25 Vancomycin/Ns 1 Gm/250 Ml IV 166.667 mls/hr Q8H JCARLOS Administration Insulin Human Lispro 0 unit 10/19/19 17:00 10/23/19 17:25 Humalog SUB-Q 9 unit Q6H JCARLOS Administration Protocol Lisinopril 2.5 mg 10/19/19 10:00 10/23/19 09:00 Zestril PO 2.5 mg QDAY JCARLOS Administration Ondansetron HCl 4 mg 10/19/19 16:43 Zofran IV Q8H PRN Nausea And Vomiting Oxycodone/Acetaminophen 1 tab 10/19/19 16:43 10/22/19 15:38 Percocet 5/325 PO 1 tab Q6H PRN Administration Pain, Moderate (4-6) Sodium Chloride 10 ml 10/19/19 22:00 10/23/19 09:00 Sodium Chloride Flush Syringe 10 Ml IV 10 ml BID JCARLOS Administration Sodium Chloride 10 ml 10/19/19 16:43 Sodium Chloride Flush Syringe 10 Ml IV PRN PRN LINE FLUSH
[2019-10-24] MEDS: VANCOMYCIN/NS 1 GM/250 ML 1 GM/250 ML BAG IV SCH ×4 (00:19→16:27)
[2019-10-24] MEDS: SODIUM CHLORIDE 0.9% 1000 ML 1,000 ML IV SCH ×2 (02:38→16:27)
[2019-10-24] MEDS: INSULIN LISPRO 100 UNIT/ML VIAL 3 mL SUB-Q SCH ×4 (05:27→23:15)
[2019-10-24 11:20] LABS: Blood Urea Nitrogen 6 mg/dL (9-20); Calcium 8.8 mg/dL (8.4-10.2); Hemolysis Index 6
[2019-10-24 11:27] LABS: BUN/Creatinine Ratio 10
[2019-10-24] MEDS ORDERED: ONDANSETRON 4 MG/2 ML INJ ONE (11:45)
[2019-10-24] MEDS ORDERED: LIDOCAINE MPF (2%) 20 MG/1 ML VIAL 5 ML ONE (11:45)
[2019-10-24] MEDS ORDERED: propofoL 200 MG/20 ML VIAL IV ONE (11:46)
--- NOTE | 2019-10-24 11:46 | Anesthesia Day of Surgery ---
Anesthesia Day of Surgery - Day of Surgery Patient Examined: Yes Patient H&P Reviewed: Yes Patient is NPO: Yes
[2019-10-24] MEDS ORDERED: SODIUM CHLORIDE 0.9% 1000 ML 1,000 ML ONE (13:32)
[2019-10-24] MEDS ORDERED: PHENYLEPHRINE/NS 1,000 MCG/10 ML SYRINGE (OR USE) IV ONE (13:32)
[2019-10-24] MEDS: HYDROmorphone 1 MG/1 ML INJ IV PRN ×4 (14:00→14:50)
--- NOTE | 2019-10-24 14:00 | Procedure Note ---
Date of procedure: 10/24/19 Pre-op diagnosis: Gangrenous right 4th toe and right foot abscess Post-op diagnosis: same (Right 5th toe appeared ischemic. I will discuss possible amputation with the pt post-operatively.) Procedure: 1) TMA of right 4th toe 2) I&D of right foot abscess * Description of procedure: Pt was placed supine on the OR table. After general anesthesia, the right foot was prepped and draped. The draining area on the plantar surface was explored with a hemostat and was found to communicate with the right 4th toe wound. The right 4th toe was then amputated at the MTP joint. Periosteum was elevated off of the mid-distal 4th metatarsal shaft and the shaft amputated with the bone saw. Necrotic skin, SQ tissue, muscle and fascia were debrided with scissors, Bovie and forceps. Purulent drainage from the tract between the mid-plantar foot and 4th toe woun d was collected and sent for C&S. Wound was irrigated with a dilute Betadine- saline solution. Wound was packed open with a dilute Betadine moistened Kerlix roll, followed by dry 4X4's, a Kerlix wrap and Coban wrap. Pt tolerated the procedure well. He was taken to PACU in stable condition. Anesthesia: other (LMA) Surgeon: RUFUS OH Estimated blood loss: minimal Pathology: list (1) Right 4th toe 2) Right 4th metatarsal head 3) C&S right foot abscess) Specimen disposition: to lab Condition: stable Disposition: PACU
[2019-10-24] MEDS: LISINOPRIL 5 MG TAB PO SCH (16:25)
--- NOTE | 2019-10-24 20:48 | Progress Note ---
Assessment and Plan - Patient Problems (1) Systemic inflammatory response syndrome Current Visit: Yes Status: Acute Plan to address problem: CBC, CMP, IV antibiotic therapy, IV fluid resuscitation therapy, supportive care. (2) Uncontrolled diabetes mellitus Current Visit: Yes Status: Acute Qualifiers: Diabetes mellitus type: type 1 Plan to address problem: Sliding scale insulin therapy, Accu-Chek, consistent carbohydrate diet, hypoglycemia protocol. (3) Noncompliance with medication regimen Current Visit: Yes Status: Acute Plan to address problem: Patient counseled, patient knowledges understanding instructions. (4) Cellulitis Current Visit: Yes Status: Acute Qualifiers: Site of cellulitis of extremity: lower extremity Laterality: right Plan to address problem: CBC, CMP, IV antibiotic therapy, repeat CBC in a.m. (5) Diabetic infection of right foot Current Visit: Yes Status: Acute Plan to address problem: CBC, CMP, IV antibiotic therapy, CT right lower extremity reviewed, pain control, supportive care. (6) Osteomyelitis due to type 1 diabetes mellitus Current Visit: Yes Status: Suspected Plan to address problem: surgical team consulted. Surgical intervention on Thursday as per surgical team. (7) DVT prophylaxis Current Visit: Yes Status: Acute Plan to address problem: SCD to bilateral lower extremities while in bed, History Interval history: 39 YO Male HD #6 with SIRS, Diabetic Foot Infection, Cellulitis, osteomyelitis to the right fourth toe pending surgical amputation today. Patient is resting comfortably in bed. Patient states that pain is controlled. No reported nursing events overnight. NPO after midnight pending surgical intervention in am. Patient has palpable pulses to bilateral lower extremities. No reported nursing events. Hospitalist Physical - Constitutional Vitals: Temp Pulse Resp BP Pulse Ox 100.2 F H 107 H 18 105/57 98 10/24/19 19:22 10/24/19 19:22 10/24/19 19:22 10/24/19 19:22 10/24/19 19:22 General appearance: Present: mild distress - EENT Eyes: Present: PERRL, EOM intact ENT: hearing intact - Neck Neck: Present: supple - Respiratory Respiratory effort: normal Respiratory: bilateral: CTA - Cardiovascular Rhythm: regular - Extremities Extremities: no ischemia Extremity abnormal: erythema, deformity, black Peripheral Pulses: abnormal - Abdominal General gastrointestinal: soft, non-tender, non-distended - Integumentary Integumentary: Present: clear, dry - Psychiatric Psychiatric: appropriate mood/affect, cooperative - Neurologic Neurologic: CNII-XII intact Results - Labs CBC & Chem 7: 10/20/19 04:58 10/24/19 10:16 Labs: Laboratory Last Values WBC 14.6 K/mm3 (4.5-11.0) H 10/20/19 04:58 RBC 4.09 M/mm3 (3.65-5.03) 10/20/19 04:58 Hgb 12.0 gm/dl (11.8-15.2) 10/20/19 04:58 Hct 36.2 % (35.5-45.6) 10/20/19 04:58 MCV 89 fl (84-94) 10/20/19 04:58 MCH 29 pg (28-32) 10/20/19 04:58 MCHC 33 % (32-34) 10/20/19 04:58 RDW 12.2 % (13.2-15.2) L 10/20/19 04:58 Plt Count 323 K/mm3 (140-440) 10/20/19 04:58 Lymph % (Auto) 9.3 % (13.4-35.0) L 10/20/19 04:58 [place] % (Auto) 7.8 % (0.0-7.3) H 10/20/19 04:58 Eos % (Auto) 0.6 % (0.0-4.3) 10/20/19 04:58 Baso % (Auto) 0.6 % (0.0-1.8) 10/20/19 04:58 Lymph # 1.4 K/mm3 (1.2-5.4) 10/20/19 04:58 [place] # 1.1 K/mm3 (0.0-0.8) H 10/20/19 04:58 Eos # 0.1 K/mm3 (0.0-0.4) 10/20/19 04:58 Baso # 0.1 K/mm3 (0.0-0.1) 10/20/19 04:58 Seg Neutrophils % 81.7 % (40.0-70.0) H 10/20/19 04:58 Seg Neutrophils # 12.0 K/mm3 (1.8-7.7) H 10/20/19 04:58 PT 14.0 Sec. (12.2-14.9) 10/19/19 10:10 INR 1.07 (0.87-1.13) 10/19/19 10:10 VBG pH 7.432 (7.320-7.420) H 10/19/19 10:10 Sodium 137 mmol/L (137-145) 10/24/19 10:16 Potassium 3.3 mmol/L (3.6-5.0) L 10/24/19 10:16 Chloride 100.4 mmol/L (98-107) 10/24/19 10:16 Carbon Dioxide 25 mmol/L (22-30) 10/24/19 10:16 Anion Gap 15 mmol/L 10/24/19 10:16 BUN 6 mg/dL (9-20) L 10/24/19 10:16 Creatinine 0.6 mg/dL (0.8-1.3) L 10/24/19 10:16 Estimated GFR > 60 ml/min 10/24/19 10:16 BUN/Creatinine Ratio 10 % 10/24/19 10:16 Glucose 182 mg/dL (75-100) H 10/24/19 10:16 POC Glucose 328 (70-105) H 10/24/19 17:04 Lactic Acid 1.30 mmol/L (0.7-2.0) 10/19/19 14:50 Calcium 8.8 mg/dL (8.4-10.2) 10/24/19 10:16 Total Bilirubin 0.50 mg/dL (0.1-1.2) 10/19/19 10:10 AST 11 units/L (5-40) 10/19/19 10:10 ALT 13 units/L (7-56) 10/19/19 10:10 Alkaline Phosphatase 173 units/L (35-129) H 10/19/19 10:10 Total Protein 6.6 g/dL (6.3-8.2) 10/19/19 10:10 Albumin 2.9 g/dL (3.9-5) L 10/19/19 10:10 Albumin/Globulin Ratio 0.8 % 10/19/19 10:10 Vancomycin Trough 6.0 ug/mL (5.0-20.0) 10/22/19 19:55 Coronavirus (PCR) Negative (Negative) 10/20/19 08:04 Microbiology: Microbiology 10/19/19 10:10 Peripheral/Venous Blood Culture - Final NO GROWTH AFTER 5 DAYS 10/19/19 10:10 Peripheral/Venous Blood Culture - Final NO GROWTH AFTER 5 DAYS 10/21/19 Unknown Toe - Right Fourth Surgical Culture - Final [place] Albicans Beta Hemolytic Strep Group B Moe/IV: Voiding Method Urinal IV Catheter Type [Left INT / Saline Lock Antecubital] Active Medications - Current Medications Current Medications: Generic Name Dose Route Start Last Admin Trade Name Freq PRN Reason Stop Dose Admin Acetaminophen 650 mg 10/19/19 16:43 Tylenol PO Q4H PRN Pain MILD(1-3)/Fever >100.5/THORNTON Albuterol 2.5 mg 10/19/19 16:43 Proventil IH Q4HRT PRN Shortness Of Breath Dextrose 50 ml 10/19/19 16:46 D50w (25gm) Syringe IV Q30MIN PRN Hypoglycemia Protocol Sodium Chloride 1,000 mls @ 100 mls/hr 10/21/19 09:00 10/24/19 16:27 Nacl 0.9% 1000 Ml IV 100 mls/hr DIRECT JCARLOS Administration Vancomycin HCl 1 gm in 250 mls @ 166.667 mls/hr 10/23/19 09:00 10/24/19 16:27 Vancomycin/Ns 1 Gm/250 Ml IV 166.667 mls/hr Q8H JCARLOS Administration Insulin Human Lispro 0 unit 10/19/19 17:00 10/24/19 17:47 Humalog SUB-Q Not Given Q6H JCARLOS Protocol Lisinopril 2.5 mg 10/19/19 10:00 10/24/19 16:25 Zestril PO 2.5 mg QDAY JCARLOS Administration Midazolam HCl 2 mg 10/24/19 12:00 Versed IV 10/24/19 23:59 PREOP NR Ondansetron HCl 4 mg 10/19/19 16:43 Zofran IV Q8H PRN Nausea And Vomiting Oxycodone/Acetaminophen 1 tab 10/19/19 16:43 10/22/19 15:38 Percocet 5/325 PO 1 tab Q6H PRN Administration Pain, Moderate (4-6) Sodium Chloride 10 ml 10/19/19 22:00 10/24/19 15:19 Sodium Chloride Flush Syringe 10 Ml IV Not Given BID JCARLOS Sodium Chloride 10 ml 10/19/19 16:43 Sodium Chloride Flush Syringe 10 Ml IV PRN PRN LINE FLUSH
--- NOTE | 2019-10-24 20:49 | Event Note ---
Date: 10/24/19 Discussed patient's status with surgical team. Requested vascular surgery consult for peripheral artery disease. Consult placed.
[2019-10-25] MEDS: VANCOMYCIN/NS 1 GM/250 ML 1 GM/250 ML BAG IV SCH ×3 (00:48→17:18)
[2019-10-25] MEDS: ACETAMINOPHEN 325 MG TAB PO PRN ×2 (05:14→21:44)
[2019-10-25] MEDS: SODIUM CHLORIDE 0.9% 1000 ML 1,000 ML IV SCH ×2 (05:19→17:20)
[2019-10-25] MEDS: INSULIN LISPRO 100 UNIT/ML VIAL 3 mL SUB-Q SCH ×4 (06:30→22:07)
[2019-10-25] MEDS: LISINOPRIL 5 MG TAB PO SCH (10:30)
[2019-10-25 11:02] LABS: Bacteria,Urine 1+ /HPF (Negative); Bilirubin,Urine NEG (Negative); Blood,Urine MOD (Negative); Color,Urine Yellow (Yellow); Mucus,Urine FEW /HPF; Protein,Urine <15 mg/dL mg/dL (Negative)
--- NOTE | 2019-10-25 12:01 | Consultation ---
History of Present Illness - Reason for Consult Consult date: 10/25/19 RLE abnormal arterial doppler Requesting physician: RUFUS OH - History of Present Illness 39 year old Male with DM presents to ED for evaluation. Patient states that he has experienced pain, redness, and swelling to his right foot over the past 1 week with worsening symptoms over the past 3 days. Patient states that his pain is currently 6/10, constant, worsened with weightbearing, relieved with rest. Patient also reports darkening of his right fourth toe. Patient transported to [facility] via private vehicle for further care and evaluation. Patient seen and evaluated in the emergency department. Lab and imaging studies reviewed. Patient found to have cellulitis to right lower extremity, as well as suspected osteomyelitis to the right fourth toe, systemic inflammatory response syndrome, uncontrolled diabetes mellitus. Patient admitted to medical floor and initiated on IV antibiotic therapy. Surgical team consulted in ED for probable amputation. Patient denies fever, chills, chest pain, palpitation, productive cough, recent ill contacts, or known exposure to COVID-19. No medication listed at time of admission for reconciliation. No prior admission for review. Patient was seen by general surgery and had a procedure performed on 10/24/2019. 1) TMA of right 4th toe 2) I&D of right foot abscess * Description of procedure: Pt was placed supine on the OR table. After general anesthesia, the right foot was prepped and draped. The draining area on the plantar surface was explored with a hemostat and was found to communicate with the right 4th toe wound. The right 4th toe was then amputated at the MTP joint. Periosteum was elevated off of the mid-distal 4th metatarsal shaft and the shaft amputated with the bone saw. Necrotic skin, SQ tissue, muscle and fascia were debrided with scissors, Bovie and forceps. Purulent drainage from the tract between the mid-plantar foot and 4th toe wound was collected and sent for C&S. Wound was irrigated with a dilute Bet adine-saline solution. Wound was packed open with a dilute Betadine moistened Kerlix roll, followed by dry 4X4's, a Kerlix wrap and Coban wrap. Pt tolerated the procedure well. He was taken to PACU in stable condition. Vascular was then consulted after monophasic waveforms are seen in the right lower extremity. Patient has a gangrenous right fifth digit which looks unsalvageable. I noted patient was on the schedule for the operating room tomorrow. Discussed with patient that we would perform a diagnostic angiogram for possible revascularization due to his abnormal arterial Doppler studies. Patient understands and agrees with procedure. Past History Past Medical History: diabetes Past Surgical History: No surgical history, Other (Reviewed) Social history: single. denies: smoking, alcohol abuse Family history: diabetes, hypertension Medications and Allergies Allergies Allergy/AdvReac Type Severity Reaction Status Date / Time No Known Allergies Allergy Verified 06/23/17 09:20 Home Medications Medication Instructions Recorded Confirmed Last Taken Type HYDROcodone/APAP 7.5-325 [[place] 1 each PO Q6HR PRN #20 tablet 10/21/15 10/21/19 Unknown Rx 7.5/325] cephALEXin [Keflex] 1,000 mg PO Q12HR #20 cap 10/21/15 10/21/19 Unknown Rx HYDROcodone/APAP 5-325 [[place] 1 each PO Q6HR PRN #10 tablet 08/12/16 10/21/19 Unknown Rx 5/325] cephALEXin [Keflex] 1,000 mg PO Q12HR #28 cap 08/12/16 10/21/19 Unknown Rx Mupirocin [Bactroban 2%] 1 applic TP TID 5 Days tube 08/18/16 10/21/19 Unknown Rx Sulfamethoxazole/Trimethoprim 1 each PO BID #20 tablet 06/23/17 10/21/19 Unknown Rx [Bactrim DS TAB] cephALEXin [Keflex] 500 mg PO QID #30 capsule 06/23/17 10/21/19 Unknown Rx metFORMIN [Glucophage] 500 mg PO BID #60 tablet 06/23/17 10/21/19 Unknown Rx traMADoL [Ultram 50 MG tab] 50 mg PO Q6HR PRN #20 tablet 06/23/17 10/21/19 Unknown Rx Sulfamethoxazole/Trimethoprim 1 each PO BID 10 Days #20 tablet 10/17/18 10/21/19 Unknown Rx [Bactrim DS TAB] cephALEXin [Keflex] 500 mg PO Q6HR 10 Days #40 capsule 10/17/18 10/21/19 Unknown Rx Active Meds: Active Medications Acetaminophen (Tylenol) 650 mg PO Q4H PRN PRN Reason: Pain MILD(1-3)/Fever >100.5/THORNTON Last Admin: 10/25/19 05:14 Dose: 650 mg Documented by: Albuterol (Proventil) 2.5 mg IH Q4HRT PRN PRN Reason: Shortness Of Breath Dextrose (D50w (25gm) Syringe) 50 ml IV Q30MIN PRN; Protocol PRN Reason: Hypoglycemia Sodium Chloride (Nacl 0.9% 1000 Ml) 1,000 mls @ 100 mls/hr IV DIRECT JCARLOS Last Admin: 10/25/19 05:19 Dose: 100 mls/hr Documented by: Vancomycin HCl (Vancomycin/Ns 1 Gm/250 Ml) 1 gm in 250 mls @ 166.667 mls/hr IV Q8H [facility] Last Admin: 10/25/19 10:23 Dose: 166.667 mls/hr Documented by: Insulin Human Lispro (Humalog) 0 unit SUB-Q ACHS JCARLOS; Protocol Last Admin: 10/25/19 11:15 Dose: 6 unit Documented by: Lisinopril (Zestril) 2.5 mg PO QDAY [facility] Last Admin: 10/25/19 10:30 Dose: 2.5 mg Documented by: Ondansetron HCl (Zofran) 4 mg IV Q8H PRN PRN Reason: Nausea And Vomiting Oxycodone/Acetaminophen (Percocet 5/325) 1 tab PO Q6H PRN PRN Reason: Pain, Moderate (4-6) Last Admin: 10/22/19 15:38 Dose: 1 tab Documented by: Sodium Chloride (Sodium Chloride Flush Syringe 10 Ml) 10 ml IV BID [facility] Last Admin: 10/25/19 10:08 Dose: Not Given Documented by: Sodium Chloride (Sodium Chloride Flush Syringe 10 Ml) 10 ml IV PRN PRN PRN Reason: LINE FLUSH Review of Systems All systems: negative (see HPI) Exam - Constitutional Vitals: Temp Pulse Resp BP Pulse Ox 98.3 F 89 18 137/69 99 10/25/19 11:29 10/25/19 11:29 10/25/19 11:29 10/25/19 11:29 10/25/19 11:29 General appearance: Present: no acute distress - EENT Eyes: Present: EOM intact ENT: hearing intact - Neck Neck: Present: supple - Respiratory Respiratory effort: normal - Extremities Extremities: normal temperature, normal color, abnormal (dressing over the right foot making pulse examination not possible. Palpable right femoral pulse. 1-3 digits on right foot are intact and warm ; 4th amputated ; 5th gangrenous and will require amputation) - Psychiatric Psychiatric: appropriate mood/affect, intact judgment & insight, cooperative, other (used language line ) Results - Labs CBC & Chem 7: 10/20/19 04:58 10/24/19 10:16 Labs: Abnormal lab results 10/24/19 10/24/19 10/24/19 Range/Units 14:13 17:04 23:13 POC Glucose 111 H 328 H 267 H (70-105) 10/25/19 10/25/19 Range/Units 06:39 11:28 POC Glucose 202 H 220 H (70-105) Assessment and Plan 39-year-old male with uncontrolled diabetes who presents with right foot abscess requiring amputation of the right fourth digit and midfoot abscess drainage. Despite appropriate steps, his right fifth digit appears unsalvageable now. Patient also has abnormal arterial Doppler studies. Discussed abnormal arterial Doppler studies with patient and discussed recommendation for angiography and possible revascularization. Risks, benefits, and alternatives understood by patient. Patient understands that if procedure is performed, he will need to take aspirin for life and Plavix for 6 months. Discussed how Plavix can be obtained from [employer] for $10 a month. Patient understands. This was all performed with the language line.
[2019-10-25] MEDS ORDERED: fentaNYL 100 MCG/2 ML INJ ONE (13:50)
[2019-10-25] MEDS ORDERED: MIDAZOLAM 2 MG/2 ML INJ ONE (13:50)
[2019-10-25] MEDS ORDERED: HEPARIN/NS 5000 UNIT/500ML 500 ML IR ONE (13:50)
[2019-10-25] MEDS ORDERED: HEPARIN 10,000 UNITS/10 ML VIAL ONE (13:50)
[2019-10-25] MEDS ORDERED: SODIUM CHLORIDE 0.9% 250ML 0 ML ONE (13:51)
[2019-10-25] MEDS ORDERED: PIPERACIL/TAZOBACTA 4.5/NS 100 4.5 GM/100 ML VIAL IV SCH (14:00)
--- NOTE | 2019-10-25 14:05 | Progress Note ---
Assessment and Plan Assessment and plan: 39-year-old male with a medical history of diabetes admitted with a chief complaint of right foot pain. Patient states that he has experienced pain, redness, and swelling to his right foot over the past 1 week with worsening symptoms over the past 3 days. Patient states that his pain is currently 6/10, constant, worsened with weightbearing, relieved with rest. Patient also reports darkening of his right fourth toe. Patient transported to [facility] via private vehicle for further care and evaluation. Here in the ER, patient was found to have cellulitis to right lower extremity, as well as suspected osteomyelitis to the right fourth toe, systemic inflammatory response syndrome, uncontrolled diabetes mellitus. Patient admitted to medical floor and initiated on IV antibiotic therapy. Surgical team consulted in ED for probable amputation. 10/18 - 10/23. Patient had debridement and I&D of the right fourth toe - intraoperatively, he had extensive purulent fluid and ischemic tissue around the base of the fourth toe and extending to the forefoot. Had TMA of the right fourth fourth toe on 10/23. Subsequently had vascular studies done performed that showed peripheral vascular disease. Vascular surgery was consulted for further evaluation. 10/24. Patient seen and examined at bedside this morning. Patient had spiked fever overnight with maximum temperature 101 Fahrenheit. Stat blood culture has been ordered. Patient is currently on vancomycin. We will add Zosyn for now. Has abnormal Doppler of the extremities. Plan for a diagnostic angiogram for possible revascularization as per vascular surgeon. Assessment and plan 1. Diabetic foot infection with abscess and cellulitis-rule out osteomyelitis. -Patient is now status post incision and drainage, debridement of the right fou rth toe. -Continue vancomycin. Added Zosyn due to febrile episode this morning -Blood culture ordered. Check ESR, CRP and procalcitonin -General surgery and vascular surgery recommendations appreciated 2. Uncontrolled diabetes mellitus -Continue Lantus and lispro -Monitor blood glucose DVT prophylaxis-Heparin Full code History Interval history: See assessment and plan Hospitalist Physical - Constitutional Vitals: Temp Pulse Resp BP Pulse Ox 98.3 F 89 18 137/69 99 10/25/19 11:29 10/25/19 11:29 10/25/19 11:29 10/25/19 11:29 10/25/19 11:29 General appearance: Present: no acute distress - EENT Eyes: Present: PERRL - Neck Neck: Present: supple, normal ROM - Respiratory Respiratory: bilateral: CTA - Cardiovascular Rhythm: regular Heart Sounds: Present: S1 & S2 - Extremities Extremities: abnormal (Right lower extremity dressing in place -has a gangrenous fifth toe) - Abdominal General gastrointestinal: soft, non-tender, non-distended - Integumentary Integumentary: Present: clear - Psychiatric Psychiatric: appropriate mood/affect - Neurologic Neurologic: CNII-XII intact Results - Labs CBC & Chem 7: 10/20/19 04:58 10/24/19 10:16 Labs: Laboratory Last Values WBC 14.6 K/mm3 (4.5-11.0) H 10/20/19 04:58 RBC 4.09 M/mm3 (3.65-5.03) 10/20/19 04:58 Hgb 12.0 gm/dl (11.8-15.2) 10/20/19 04:58 Hct 36.2 % (35.5-45.6) 10/20/19 04:58 MCV 89 fl (84-94) 10/20/19 04:58 MCH 29 pg (28-32) 10/20/19 04:58 MCHC 33 % (32-34) 10/20/19 04:58 RDW 12.2 % (13.2-15.2) L 10/20/19 04:58 Plt Count 323 K/mm3 (140-440) 10/20/19 04:58 Lymph % (Auto) 9.3 % (13.4-35.0) L 10/20/19 04:58 [place] % (Auto) 7.8 % (0.0-7.3) H 10/20/19 04:58 Eos % (Auto) 0.6 % (0.0-4.3) 10/20/19 04:58 Baso % (Auto) 0.6 % (0.0-1.8) 10/20/19 04:58 Lymph # 1.4 K/mm3 (1.2-5.4) 10/20/19 04:58 [place] # 1.1 K/mm3 (0.0-0.8) H 10/20/19 04:58 Eos # 0.1 K/mm3 (0.0-0.4) 10/20/19 04:58 Baso # 0.1 K/mm3 (0.0-0.1) 10/20/19 04:58 Seg Neutrophils % 81.7 % (40.0-70.0) H 10/20/19 04:58 Seg Neutrophils # 12.0 K/mm3 (1.8-7.7) H 10/20/19 04:58 PT 14.0 Sec. (12.2-14.9) 10/19/19 10:10 INR 1.07 (0.87-1.13) 10/19/19 10:10 VBG pH 7.432 (7.320-7.420) H 10/19/19 10:10 Sodium 137 mmol/L (137-145) 10/24/19 10:16 Potassium 3.3 mmol/L (3.6-5.0) L 10/24/19 10:16 Chloride 100.4 mmol/L (98-107) 10/24/19 10:16 Carbon Dioxide 25 mmol/L (22-30) 10/24/19 10:16 Anion Gap 15 mmol/L 10/24/19 10:16 BUN 6 mg/dL (9-20) L 10/24/19 10:16 Creatinine 0.6 mg/dL (0.8-1.3) L 10/24/19 10:16 Estimated GFR > 60 ml/min 10/24/19 10:16 BUN/Creatinine Ratio 10 % 10/24/19 10:16 Glucose 182 mg/dL (75-100) H 10/24/19 10:16 POC Glucose 220 (70-105) H 10/25/19 11:28 Lactic Acid 1.30 mmol/L (0.7-2.0) 10/19/19 14:50 Calcium 8.8 mg/dL (8.4-10.2) 10/24/19 10:16 Total Bilirubin 0.50 mg/dL (0.1-1.2) 10/19/19 10:10 AST 11 units/L (5-40) 10/19/19 10:10 ALT 13 units/L (7-56) 10/19/19 10:10 Alkaline Phosphatase 173 units/L (35-129) H 10/19/19 10:10 Total Protein 6.6 g/dL (6.3-8.2) 10/19/19 10:10 Albumin 2.9 g/dL (3.9-5) L 10/19/19 10:10 Albumin/Globulin Ratio 0.8 % 10/19/19 10:10 Urine Color Yellow (Yellow) 10/19/19 13:25 Urine Turbidity Clear (Clear) 10/19/19 13:25 Urine pH 6.0 (5.0-7.0) 10/19/19 13:25 Ur Specific [place] 1.008 (1.003-1.030) 10/19/19 13:25 Urine Protein <15 mg/dl mg/dL (Negative) 10/19/19 13:25 Urine Glucose (UA) 50 mg/dL (Negative) 10/19/19 13:25 Urine Ketones 20 mg/dL (Negative) 10/19/19 13:25 Urine Blood Mod (Negative) 10/19/19 13:25 Urine Nitrite Neg (Negative) 10/19/19 13:25 Urine Bilirubin Neg (Negative) 10/19/19 13:25 Urine Urobilinogen 4.0 mg/dL (<2.0) 10/19/19 13:25 Ur Leukocyte Esterase Neg (Negative) 10/19/19 13:25 Urine WBC (Auto) 1.0 /HPF (0.0-6.0) 10/19/19 13:25 Urine RBC (Auto) 3.0 /HPF (0.0-6.0) 10/19/19 13:25 U Epithel Cells (Auto) < 1.0 /HPF (0-13.0) 10/19/19 13:25 Urine Bacteria (Auto) 1+ /HPF (Negative) 10/19/19 13:25 Urine Mucus Few /HPF 10/19/19 13:25 Vancomycin Trough 6.0 ug/mL (5.0-20.0) 10/22/19 19:55 Coronavirus (PCR) Negative (Negative) 10/20/19 08:04 Microbiology: Microbiology 10/24/19 Unknown Foot - Right Surgical Culture - Preliminary 10/21/19 Unknown Toe - Right Fourth Anaerobic Culture - Preliminary 10/19/19 10:10 Peripheral/Venous Blood Culture - Final NO GROWTH AFTER 5 DAYS 10/19/19 10:10 Peripheral/Venous Blood Culture - Final NO GROWTH AFTER 5 DAYS Moe/IV: Voiding Method Urinal IV Catheter Type [Right Peripheral IV Forearm] IV Catheter Type [Left INT / Saline Lock Antecubital] Active Medications - Current Medications Current Medications: Generic Name Dose Route Start Last Admin Trade Name Freq PRN Reason Stop Dose Admin Acetaminophen 650 mg 10/19/19 16:43 10/25/19 05:14 Tylenol PO 650 mg Q4H PRN Administration Pain MILD(1-3)/Fever >100.5/THORNTON Albuterol 2.5 mg 10/19/19 16:43 Proventil IH Q4HRT PRN Shortness Of Breath Dextrose 50 ml 10/19/19 16:46 D50w (25gm) Syringe IV Q30MIN PRN Hypoglycemia Protocol Sodium Chloride 1,000 mls @ 100 mls/hr 10/21/19 09:00 10/25/19 05:19 Nacl 0.9% 1000 Ml IV 100 mls/hr DIRECT JCARLOS Administration Vancomycin HCl 1 gm in 250 mls @ 166.667 mls/hr 10/23/19 09:00 10/25/19 10:23 Vancomycin/Ns 1 Gm/250 Ml IV 166.667 mls/hr Q8H JCARLOS Administration Piperacillin Sod/Tazobactam Sod 4.5 gm in 100 mls @ 200 mls/hr 10/25/19 18:00 Zosyn/Ns 4.5gm/100ml IV Q6HR JCARLOS Protocol Insulin Human Lispro 0 unit 10/25/19 11:30 10/25/19 11:15 Humalog SUB-Q 6 unit ACHS JCARLOS Administration Protocol Lisinopril 2.5 mg 10/19/19 10:00 10/25/19 10:30 Zestril PO 2.5 mg QDAY JCARLOS Administration Ondansetron HCl 4 mg 10/19/19 16:43 Zofran IV Q8H PRN Nausea And Vomiting Oxycodone/Acetaminophen 1 tab 10/19/19 16:43 10/22/19 15:38 Percocet 5/325 PO 1 tab Q6H PRN Administration Pain, Moderate (4-6) Sodium Chloride 10 ml 10/19/19 22:00 10/25/19 10:08 Sodium Chloride Flush Syringe 10 Ml IV Not Given BID JCARLOS Sodium Chloride 10 ml 10/19/19 16:43 Sodium Chloride Flush Syringe 10 Ml IV PRN PRN LINE FLUSH
[2019-10-25] MEDS: MIDAZOLAM 2 MG/2 ML INJ IV NR ×3 (14:25→14:34)
[2019-10-25] MEDS: LIDOCAINE 1%/EPINEPHRINE 1:100,000 VIAL (20 ML) INFILTRATI ONE ×2 (14:25→14:30)
[2019-10-25] MEDS: fentaNYL 100 MCG/2 ML INJ ONE ×2 (14:25→14:28)
[2019-10-25] MEDS ORDERED: ONDANSETRON 4 MG/2 ML INJ ONE (14:29)
--- NOTE | 2019-10-25 14:48 | Operative Report ---
Operative Report Operative Report: EXAM: 1. Ultrasound-guided access of the left common femoral artery. 2. Angiography of the left lower extremity. 3. Selection of the abdominal aorta with aortography. 4. Selection of the right common femoral artery, superficial femoral artery, and popliteal artery with angiography of the right lower extremity. DATE: 10/25/2019 TAPE CALENDER: NENA PRICE MD INDICATION: Abnormal arterial duplex of the right lower extremity with diabetic gangrene/ulceration of the right foot MEDICATIONS: Please see nursing report for full details. DEVICES: None CONTRAST: Please see Video Game Engineer report for full details. PROCEDURE: The risks, benefits, and alternatives were discussed with the patient; written informed consent was obtained. The patient was brought to the angiography stable and groins were prepped and draped in sterile fashion. The left common femoral artery was patent. Under direct ultrasound guidance, the left common femoral artery was accessed with a 21-gauge micropuncture needle. 0.018 inch wire was passed into the aorta. Needle was exchanged for transitional dilator. Wire was exchanged for a 0.035 inch wire. Transitional dilator was exchanged for a 5 [place] sheath. Digital subtraction angiography was performed demonstrating patency of the left common femoral artery, external iliac artery, proximal superficial femoral artery and profundofemoral artery. The puncture was appropriate, above the bifurcation and below the inferior epigastric artery. The abdominal aorta was selected with Omni Flush catheter and digital subtraction angiography was performed. The right common femoral artery and superficial femoral artery was selected and digital subtraction angiography was performed. The right popliteal artery was selected and digital subtraction angiography was performed. Digital subtraction angiography demonstrated patency of the infrarenal abdominal aorta. Digital subtraction angiography demonstrated patency of the bilateral common iliac arteries, external iliac arteries, internal iliac arteries, right common femoral artery, right profunda femoral artery, and right superficial femoral artery. The patient had a patent popliteal artery, and three-vessel runoff to the foot. The tibioperoneal trunk, anterior tibial artery, and posterior tibial artery were patent to the level of the ankle. There was a dominant dorsalis pedis artery and a diminutive lateral plantar artery completing a pedal loop. After reviewing the diagnostic imaging, I determined the patient did not require an intervention. All wires, catheters, and sheaths were retracted to the left external iliac artery and the site was closed manual compression which achieved excellent hemostasis. Sterile dressing and pressure dressing were applied. Patient tolerated the procedure well. No immediate postprocedural complication FINDINGS: Please see procedure note above IMPRESSION: Successful third order selection of the right lower extremity. Successful angiography of the right lower extremity
--- NOTE | 2019-10-25 14:54 | Event Note ---
Date: 10/25/19 Patient has no significant vascular disease of the right lower extremity. There is three-vessel runoff with a dominant and dorsalis pedis artery. Flat for 4 hours. Remove pressure dressing tomorrow morning. Issues are predominantly due to diabetic infection with uncontrolled diabetes.
[2019-10-25] MEDS ORDERED: INSULIN LISPRO 100 UNIT/ML VIAL 3 mL SUB-Q ONE (15:33)
[2019-10-25 17:33] LABS: Alanine Aminotransferase 24 units/L (7-56); Albumin 2.2 g/dL (3.9-5); BUN/Creatinine Ratio 10; Blood Urea Nitrogen 8 mg/dL (9-20); Calcium 8.3 mg/dL (8.4-10.2); Hemolysis Index 2
[2019-10-25 17:52] LABS: Basophils % (Auto) 0.6 % (0.0-1.8); Eosinophils # (Auto) 0.1 K/mm3 (0.0-0.4); Hematocrit 35.6 % (35.5-45.6); Lymphocytes # (Auto) 0.7 K/mm3 (1.2-5.4); Lymphocytes % (Auto) 8.5 % (13.4-35.0); Mean Corpuscular HGB Conc 34 % (32-34); Mean Corpuscular Volume 90 fl (84-94); Monocytes # (Auto) 0.6 K/mm3 (0.0-0.8); Monocytes % (Auto) 6.7 % (0.0-7.3); Platelet Count 388 K/mm3 (140-440); Red Blood Count 3.94 M/mm3 (3.65-5.03); Red Cell Distribution Width 12.4 % (13.2-15.2)
[2019-10-25 18:24] LABS: Erythrocyte Sedimentation Rate 120 mm/Hr (0-20)
[2019-10-25] MEDS: PIPERACIL/TAZOBACTA 4.5/NS 100 4.5 GM/100 ML VIAL IV SCH (19:17)
[2019-10-25] MEDS: INSULIN GLARGINE 100 UNITS/ML SUB-Q SCH (22:05)
[2019-10-26] MEDS: PIPERACIL/TAZOBACTA 4.5/NS 100 4.5 GM/100 ML VIAL IV SCH ×3 (01:08→13:01)
[2019-10-26] MEDS: VANCOMYCIN/NS 1 GM/250 ML 1 GM/250 ML BAG IV SCH ×2 (01:36→09:06)
[2019-10-26] MEDS: SODIUM CHLORIDE 0.9% 1000 ML 1,000 ML IV SCH ×2 (05:30→19:49)
[2019-10-26 06:31] LABS: Basophils # (Auto) 0.1 K/mm3 (0.0-0.1); Basophils % (Auto) 0.6 % (0.0-1.8); Eosinophils # (Auto) 0.2 K/mm3 (0.0-0.4); Hematocrit 34.6 % (35.5-45.6); Hemoglobin 11.6 gm/dl (11.8-15.2); Lymphocytes # (Auto) 1.1 K/mm3 (1.2-5.4); Lymphocytes % (Auto) 14.1 % (13.4-35.0); Mean Corpuscular HGB Conc 34 % (32-34); Mean Corpuscular Volume 90 fl (84-94); Monocytes # (Auto) 0.8 K/mm3 (0.0-0.8); Monocytes % (Auto) 10.5 % (0.0-7.3); Platelet Count 359 K/mm3 (140-440); Red Blood Count 3.86 M/mm3 (3.65-5.03); Red Cell Distribution Width 12.6 % (13.2-15.2)
[2019-10-26 06:43] LABS: Alanine Aminotransferase 22 units/L (7-56); Albumin 2.2 g/dL (3.9-5); BUN/Creatinine Ratio 14; Blood Urea Nitrogen 11 mg/dL (9-20); Calcium 8.2 mg/dL (8.4-10.2); Hemolysis Index 37
[2019-10-26] MEDS: INSULIN LISPRO 100 UNIT/ML VIAL 3 mL SUB-Q SCH ×4 (07:47→21:37)
[2019-10-26] MEDS: POTASSIUM CHLORIDE 10 MEQ 10 MEQ/100 ML BAG IV SCH ×3 (10:55→13:00)
--- NOTE | 2019-10-26 12:58 | Progress Note ---
Assessment and Plan Assessment and plan: 39-year-old male with a medical history of diabetes admitted with a chief complaint of right foot pain. Patient states that he has experienced pain, redness, and swelling to his right foot over the past 1 week with worsening symptoms over the past 3 days. Patient states that his pain is currently 6/10, constant, worsened with weightbearing, relieved with rest. Patient also reports darkening of his right fourth toe. Patient transported to [facility] via private vehicle for further care and evaluation. Here in the ER, patient was found to have cellulitis to right lower extremity, as well as suspected osteomyelitis to the right fourth toe, systemic inflammatory response syndrome, uncontrolled diabetes mellitus. Patient admitted to medical floor and initiated on IV antibiotic therapy. Surgical team consulted in ED for probable amputation. 10/18 - 10/23. Patient had debridement and I&D of the right fourth toe - intraoperatively, he had extensive purulent fluid and ischemic tissue around the base of the fourth toe and extending to the forefoot. Had TMA of the right fourth fourth toe on 10/23. Subsequently had vascular studies done performed that showed peripheral vascular disease. Vascular surgery was consulted for further evaluation. 10/24. Patient seen and examined at bedside this morning. Patient had spiked fever overnight with maximum temperature 101 Fahrenheit. Stat blood culture has been ordered. Patient is currently on vancomycin. We will add Zosyn for now. Has abnormal Doppler of the extremities. Plan for a diagnostic angiogram for possible revascularization as per vascular surgeon. 10/25. Has no complaints today. His CRP and ESR are elevated. Reviewed his results - no pathology result seen. Will get MRI right foot to rule out osteomyelitis. Continue antibiotics. He had diagnostic angiogram yesterday which showed no obstruction. Surgery following. Assessment and plan 1. Diabetic foot infection with abscess and cellulitis-rule out osteomyelitis. -Patient is now status post incision and drainage, debridement and amputation of the right fourth toe. -Wound culture from 10/20 - strep and jeffrey. Switch antibiotics to cetriaxone for now. -10/24 - ESR and CRP markedly elevated. Will check MRI RLE today. Will need ID consult if OM present. -Blood culture 10/24 - negative so far -General surgery and vascular surgery recommendations appreciated 2. Uncontrolled diabetes mellitus -Continue Lantus and lispro -Monitor blood glucose DVT prophylaxis-Heparin Full code History Interval history: See assessment and plan Hospitalist Physical - Constitutional Vitals: Temp Pulse Resp BP Pulse Ox 98.5 F 74 18 139/76 99 10/26/19 08:10 10/26/19 08:10 10/26/19 08:10 10/26/19 08:10 10/26/19 08:10 General appearance: Present: no acute distress - EENT Eyes: Present: PERRL - Neck Neck: Present: supple - Respiratory Respiratory: bilateral: CTA - Cardiovascular Rhythm: regular Heart Sounds: Present: S1 & S2 - Extremities Extremity abnormal: edema (RLE dressing intact with gangrenous fifth toe, fourth toe amputation) - Abdominal General gastrointestinal: soft, non-tender, non-distended, normal bowel sounds - Psychiatric Psychiatric: appropriate mood/affect - Neurologic Neurologic: CNII-XII intact Results - Labs CBC & Chem 7: 10/26/19 04:17 10/26/19 04:17 Labs: Laboratory Last Values WBC 7.9 K/mm3 (4.5-11.0) 10/26/19 04:17 RBC 3.86 M/mm3 (3.65-5.03) 10/26/19 04:17 Hgb 11.6 gm/dl (11.8-15.2) L 10/26/19 04:17 Hct 34.6 % (35.5-45.6) L 10/26/19 04:17 MCV 90 fl (84-94) 10/26/19 04:17 MCH 30 pg (28-32) 10/26/19 04:17 MCHC 34 % (32-34) 10/26/19 04:17 RDW 12.6 % (13.2-15.2) L 10/26/19 04:17 Plt Count 359 K/mm3 (140-440) 10/26/19 04:17 Lymph % (Auto) 14.1 % (13.4-35.0) 10/26/19 04:17 [place] % (Auto) 10.5 % (0.0-7.3) H 10/26/19 04:17 Eos % (Auto) 2.0 % (0.0-4.3) 10/26/19 04:17 Baso % (Auto) 0.6 % (0.0-1.8) 10/26/19 04:17 Lymph # 1.1 K/mm3 (1.2-5.4) L 10/26/19 04:17 [place] # 0.8 K/mm3 (0.0-0.8) 10/26/19 04:17 Eos # 0.2 K/mm3 (0.0-0.4) 10/26/19 04:17 Baso # 0.1 K/mm3 (0.0-0.1) 10/26/19 04:17 Seg Neutrophils % 72.8 % (40.0-70.0) H 10/26/19 04:17 Seg Neutrophils # 5.8 K/mm3 (1.8-7.7) 10/26/19 04:17 ESR 120 mm/Hr (0-20) 10/25/19 16:47 PT 14.0 Sec. (12.2-14.9) 10/19/19 10:10 INR 1.07 (0.87-1.13) 10/19/19 10:10 VBG pH 7.432 (7.320-7.420) H 10/19/19 10:10 Sodium 143 mmol/L (137-145) D 10/26/19 04:17 Potassium 3.2 mmol/L (3.6-5.0) L 10/26/19 04:17 Chloride 103.6 mmol/L (98-107) 10/26/19 04:17 Carbon Dioxide 25 mmol/L (22-30) 10/26/19 04:17 Anion Gap 18 mmol/L 10/26/19 04:17 BUN 11 mg/dL (9-20) 10/26/19 04:17 Creatinine 0.8 mg/dL (0.8-1.3) 10/26/19 04:17 Estimated GFR > 60 ml/min 10/26/19 04:17 BUN/Creatinine Ratio 14 % 10/26/19 04:17 Glucose 184 mg/dL (75-100) H 10/26/19 04:17 POC Glucose 358 (70-105) H 10/25/19 22:05 Lactic Acid 1.30 mmol/L (0.7-2.0) 10/19/19 14:50 Calcium 8.2 mg/dL (8.4-10.2) L 10/26/19 04:17 Total Bilirubin 0.20 mg/dL (0.1-1.2) 10/26/19 04:17 AST 26 units/L (5-40) 10/26/19 04:17 ALT 22 units/L (7-56) 10/26/19 04:17 Alkaline Phosphatase 219 units/L (35-129) H 10/26/19 04:17 C-Reactive Protein 20.50 mg/dL (0.00-1.30) H 10/25/19 16:47 Total Protein 6.7 g/dL (6.3-8.2) 10/26/19 04:17 Albumin 2.2 g/dL (3.9-5) L 10/26/19 04:17 Albumin/Globulin Ratio 0.5 % 10/26/19 04:17 Procalcitonin 1.23 ng/mL (<0.15) 10/25/19 16:47 Urine Color Yellow (Yellow) 10/19/19 13:25 Urine Turbidity Clear (Clear) 10/19/19 13:25 Urine pH 6.0 (5.0-7.0) 10/19/19 13:25 Ur Specific [place] 1.008 (1.003-1.030) 10/19/19 13:25 Urine Protein <15 mg/dl mg/dL (Negative) 10/19/19 13:25 Urine Glucose (UA) 50 mg/dL (Negative) 10/19/19 13:25 Urine Ketones 20 mg/dL (Negative) 10/19/19 13:25 Urine Blood Mod (Negative) 10/19/19 13:25 Urine Nitrite Neg (Negative) 10/19/19 13:25 Urine Bilirubin Neg (Negative) 10/19/19 13:25 Urine Urobilinogen 4.0 mg/dL (<2.0) 10/19/19 13:25 Ur Leukocyte Esterase Neg (Negative) 10/19/19 13:25 Urine WBC (Auto) 1.0 /HPF (0.0-6.0) 10/19/19 13:25 Urine RBC (Auto) 3.0 /HPF (0.0-6.0) 10/19/19 13:25 U Epithel Cells (Auto) < 1.0 /HPF (0-13.0) 10/19/19 13:25 Urine Bacteria (Auto) 1+ /HPF (Negative) 10/19/19 13:25 Urine Mucus Few /HPF 10/19/19 13:25 Vancomycin Trough 18.3 ug/mL (5.0-20.0) 10/26/19 07:02 Coronavirus (PCR) Negative (Negative) 10/20/19 08:04 Microbiology: Microbiology 10/19/19 Unknown Urine,Clean Catch Urine Culture - Preliminary NO GROWTH AFTER 24 HOURS 10/25/19 16:59 Peripheral/Venous Blood Culture - Preliminary Culture in Progress 10/25/19 16:47 Peripheral/Venous Blood Culture - Preliminary Culture in Progress 10/24/19 Unknown Foot - Right Surgical Culture - Preliminary 10/21/19 Unknown Toe - Right Fourth Anaerobic Culture - Preliminary Moe/IV: Voiding Method Urinal IV Catheter Type [Right Peripheral IV Forearm] IV Catheter Type [Left INT / Saline Lock Antecubital] Active Medications - Current Medications Current Medications: Generic Name Dose Route Start Last Admin Trade Name Freq PRN Reason Stop Dose Admin Acetaminophen 650 mg 10/19/19 16:43 10/25/19 21:44 Tylenol PO 650 mg Q4H PRN Administration Pain MILD(1-3)/Fever >100.5/THORNTON Albuterol 2.5 mg 10/19/19 16:43 Proventil IH Q4HRT PRN Shortness Of Breath Dextrose 50 ml 10/19/19 16:46 D50w (25gm) Syringe IV Q30MIN PRN Hypoglycemia Protocol Sodium Chloride 1,000 mls @ 100 mls/hr 10/21/19 09:00 10/26/19 05:30 Nacl 0.9% 1000 Ml IV 100 mls/hr DIRECT JCARLOS Administration Vancomycin HCl 1 gm in 250 mls @ 166.667 mls/hr 10/23/19 09:00 10/26/19 09:06 Vancomycin/Ns 1 Gm/250 Ml IV 166.667 mls/hr Q8H JCARLOS Administration Piperacillin Sod/Tazobactam Sod 4.5 gm in 100 mls @ 200 mls/hr 10/25/19 18:00 10/26/19 05:28 Zosyn/Ns 4.5gm/100ml IV 200 mls/hr Q6HR JCARLOS Administration Protocol Potassium Chloride 10 meq in 100 mls @ 100 mls/hr 10/26/19 09:00 10/26/19 10:55 Kcl 10meq/100ml IV 10/26/19 12:59 100 mls/hr Q1H JCARLOS Administration Insulin Glargine 6 units 10/25/19 22:00 10/25/19 22:05 Lantus SUB-Q 6 units QHS JCARLOS Administration Insulin Human Lispro 0 unit 10/25/19 11:30 10/26/19 07:47 Humalog SUB-Q Not Given ACHS [facility] Protocol Lisinopril 2.5 mg 10/19/19 10:00 10/25/19 10:30 Zestril PO 2.5 mg QDAY JCARLOS Administration Ondansetron HCl 4 mg 10/19/19 16:43 Zofran IV Q8H PRN Nausea And Vomiting Oxycodone/Acetaminophen 1 tab 10/19/19 16:43 10/22/19 15:38 Percocet 5/325 PO 1 tab Q6H PRN Administration Pain, Moderate (4-6) Potassium Chloride 40 meq 10/26/19 13:34 K-Dur PO 10/26/19 13:35 ONCE ONE Sodium Chloride 10 ml 10/19/19 22:00 10/25/19 21:55 Sodium Chloride Flush Syringe 10 Ml IV 10 ml BID JCARLOS Administration Sodium Chloride 10 ml 10/19/19 16:43 Sodium Chloride Flush Syringe 10 Ml IV PRN PRN LINE FLUSH
[2019-10-26] MEDS: LISINOPRIL 5 MG TAB PO SCH (13:01)
[2019-10-26] MEDS: oxyCODONE /ACETAMINOPHEN 5-325MG TAB PO PRN (13:04)
[2019-10-26] MEDS ORDERED: POTASSIUM CHLORIDE ER 20 MEQ TAB PO ONE (13:34)
--- NOTE | 2019-10-26 13:59 | Progress Note ---
Assessment and Plan - Patient Problems (1) Diabetic infection of right foot Current Visit: Yes Status: Acute Plan to address problem: 1) TMA of right 5th toe tomorrow. 2) NPO after MN Subjective Date of service: 10/26/19 Patient Reports: Positive: no new complaints (Pt has no PAD per Dr. Camarena.) Objective Vital Signs - 12hr 10/26/19 10/26/19 10/26/19 03:21 07:49 08:10 Temperature 97.7 F 98.5 F Pulse Rate 71 74 Respiratory 16 18 18 Rate Blood Pressure 115/67 139/76 O2 Sat by Pulse 97 99 Oximetry 10/26/19 13:01 Temperature Pulse Rate 76 Respiratory Rate Blood Pressure 128/75 O2 Sat by Pulse Oximetry - Integumentary other (Right 5th toe is gangrenous. Right 4th toe wound is fairly clean.) - Labs 10/26/19 04:17 10/26/19 04:17 Diabetes panel 10/25/19 10/26/19 Range/Units 16:47 04:17 Sodium 136 L 143 D (137-145) mmol/L Potassium 3.3 L 3.2 L (3.6-5.0) mmol/L Chloride 99.2 103.6 (98-107) mmol/L Carbon Dioxide 27 25 (22-30) mmol/L BUN 8 L 11 (9-20) mg/dL Creatinine 0.8 0.8 (0.8-1.3) mg/dL Glucose 318 H 184 H (75-100) mg/dL Calcium 8.3 L 8.2 L (8.4-10.2) mg/dL AST 27 26 (5-40) units/L ALT 24 22 (7-56) units/L Alkaline Phosphatase 260 H 219 H (35-129) units/L Total Protein 7.0 6.7 (6.3-8.2) g/dL Albumin 2.2 L 2.2 L (3.9-5) g/dL Calcium panel 10/25/19 10/26/19 Range/Units 16:47 04:17 Calcium 8.3 L 8.2 L (8.4-10.2) mg/dL Albumin 2.2 L 2.2 L (3.9-5) g/dL Pituitary panel 10/25/19 10/26/19 Range/Units 16:47 04:17 Sodium 136 L 143 D (137-145) mmol/L Potassium 3.3 L 3.2 L (3.6-5.0) mmol/L Chloride 99.2 103.6 (98-107) mmol/L Carbon Dioxide 27 25 (22-30) mmol/L BUN 8 L 11 (9-20) mg/dL Creatinine 0.8 0.8 (0.8-1.3) mg/dL Glucose 318 H 184 H (75-100) mg/dL Calcium 8.3 L 8.2 L (8.4-10.2) mg/dL Adrenal panel 10/25/19 10/26/19 Range/Units 16:47 04:17 Sodium 136 L 143 D (137-145) mmol/L Potassium 3.3 L 3.2 L (3.6-5.0) mmol/L Chloride 99.2 103.6 (98-107) mmol/L Carbon Dioxide 27 25 (22-30) mmol/L BUN 8 L 11 (9-20) mg/dL Creatinine 0.8 0.8 (0.8-1.3) mg/dL Glucose 318 H 184 H (75-100) mg/dL Calcium 8.3 L 8.2 L (8.4-10.2) mg/dL Total Bilirubin 0.20 0.20 (0.1-1.2) mg/dL AST 27 26 (5-40) units/L ALT 24 22 (7-56) units/L Alkaline Phosphatase 260 H 219 H (35-129) units/L Total Protein 7.0 6.7 (6.3-8.2) g/dL Albumin 2.2 L 2.2 L (3.9-5) g/dL
[2019-10-26] MEDS: cefTRIAXone/NS 1 GM/50 ML 1 GM/50 ML BAG IV SCH (14:50)
[2019-10-26] MEDS: LIDOCAINE 1%/EPINEPHRINE 1:100,000 VIAL (20 ML) INFILTRATI ONE (21:21)
[2019-10-26] MEDS: INSULIN GLARGINE 100 UNITS/ML SUB-Q SCH (21:37)
[2019-10-27] MEDS: SODIUM CHLORIDE 0.9% 1000 ML 1,000 ML IV SCH ×2 (05:13→11:40)
[2019-10-27 05:57] LABS: Basophils % (Auto) 0.6 % (0.0-1.8); Eosinophils # (Auto) 0.2 K/mm3 (0.0-0.4); Eosinophils % (Auto) 2.7 % (0.0-4.3); Hematocrit 33.1 % (35.5-45.6); Hemoglobin 11.2 gm/dl (11.8-15.2); Lymphocytes # (Auto) 1.4 K/mm3 (1.2-5.4); Lymphocytes % (Auto) 18.6 % (13.4-35.0); Mean Corpuscular HGB Conc 34 % (32-34); Mean Corpuscular Volume 89 fl (84-94); Monocytes # (Auto) 0.5 K/mm3 (0.0-0.8); Platelet Count 401 K/mm3 (140-440); Red Blood Count 3.73 M/mm3 (3.65-5.03); Red Cell Distribution Width 12.4 % (13.2-15.2)
[2019-10-27 06:10] LABS: Alanine Aminotransferase 17 units/L (7-56); Albumin 2.2 g/dL (3.9-5); Blood Urea Nitrogen 10 mg/dL (9-20); Calcium 8.3 mg/dL (8.4-10.2); Hemolysis Index 3
[2019-10-27 06:22] LABS: BUN/Creatinine Ratio 14
[2019-10-27] MEDS ORDERED: BUPIVACAINE/PF (0.5%) 5 MG/1 ML 30 ML VIAL INFILTRATI ONE (08:47)
[2019-10-27] MEDS ORDERED: LIDOCAINE (1%) 10 MG/1 ML VIAL 20 ML MDV ONE (08:47)
[2019-10-27] MEDS: LISINOPRIL 5 MG TAB PO SCH (10:18)
[2019-10-27] MEDS: INSULIN LISPRO 100 UNIT/ML VIAL 3 mL SUB-Q SCH ×4 (10:18→23:12)
--- NOTE | 2019-10-27 11:26 | Magnetic Resonance Report ---
MRI right forefoot with and without contrast HISTORY: rule our osteomyelitis. TECHNIQUE: 15 mL of MultiHance was given intravenously. COMPARISON: None FINDINGS: There is postoperative change in the forefoot with resection at the mid shaft of the fourt h metatarsal and a deep soft tissue wound as well as surrounding foci of subcutaneous gas. There is c onsiderable surrounding soft tissue swelling which at least in part could be postoperative but I susp ect the majority of this is related to infection/inflammatory change. There is also an extensive absc ess which extends along the plantar aspect of the foot where there is a second wound. This rim-enhanc ing abscess which communicates with the postoperative fourth metatarsal space measures approximately 5.3 x 1.2 cm in maximal cross-sectional dimensions on image #16 of series #12 and 8.5 cm in length as seen on image #12 of series #14. There is mild enhancement and subtle low T1 signal the medial aspec t of the fifth metatarsal head/neck, lateral aspect of the third metatarsal head/neck, and the entire proximal phalanx of the little toe. Otherwise, there are degenerative changes in the visualized forefoot. IMPRESSION: Postoperative and infectious/inflammatory changes in the forefoot as outlined above with extensive abscess formation along the plantar aspect of the forefoot, as well as mild osteomyelitis involving the medial aspect of the head/neck of the fifth metatarsal and proximal phalanx as well as the lateral aspect of the head/neck of the third metatarsal. Signer Name: Deacon Fink MD Signed: 10/27/2019 11:21 AM Workstation Name: [id number]
[2019-10-27] MEDS ORDERED: MIDAZOLAM 2 MG/2 ML INJ IV ONE (11:33)
[2019-10-27] MEDS ORDERED: INSULIN REGULAR, HUMAN 100 UNIT/ML 3ML VIAL SUB-Q SCH (12:11)
--- NOTE | 2019-10-27 12:13 | Anesthesia Day of Surgery ---
Anesthesia Day of Surgery - Day of Surgery Patient Examined: Yes Patient H&P Reviewed: Yes Patient is NPO: Yes
[2019-10-27] MEDS ORDERED: LIDOCAINE MPF (2%) 20 MG/1 ML VIAL 5 ML ONE (12:16)
[2019-10-27] MEDS ORDERED: fentaNYL 100 MCG/2 ML INJ ONE (12:16)
[2019-10-27] MEDS ORDERED: ONDANSETRON 4 MG/2 ML INJ ONE (12:16)
[2019-10-27] MEDS ORDERED: propofoL 200 MG/20 ML VIAL IV ONE (12:17)
[2019-10-27] MEDS ORDERED: SODIUM CHLORIDE 0.9% IRR 1,500 ML BOTTLE IR ONE ×2 (13:07)
--- NOTE | 2019-10-27 13:38 | Procedure Note ---
Date of procedure: 10/27/19 Pre-op diagnosis: 1) Gangrene of right 5th toe 2) Right plantar foot wound Post-op diagnosis: same Procedure: 1) TMA of right 5th toe and debridement of right plantar wound Description of procedure: Pt was placed supine on the OR table. General anesthesia was administered. Right foot was prepped and draped. A tear drop incision was created about the 5th toe and the toe amputated at the MTP joint. Periosteum was elevated off of the distal metatarsal shaft and the metatarsal head amputated with a bone saw. Hemostasis was obtained with the Bovie. The plantar wound was debrided of necrotic SQ tissue and fascia/tendon with forceps, scalpel and scissors. Wound was irrigated and packed open with a dilute Betadine moistened Kerlix followed by a Kerlix wrap about the foot followed by a Coban wrap about the foot. Pt tolerated the procedure well. Pt was taken to PACU in stable condition. Anesthesia: other (LMA) Surgeon: RUFUS OH Estimated blood loss: minimal Pathology: list (1) Right 5th toe 2) Right 5th metatarsalhead) Specimen disposition: to lab Condition: stable Disposition: PACU
[2019-10-27] MEDS: HYDROmorphone 1 MG/1 ML INJ IV PRN ×2 (13:40→13:50)
[2019-10-27] MEDS: cefTRIAXone/NS 1 GM/50 ML 1 GM/50 ML BAG IV SCH (15:56)
--- NOTE | 2019-10-27 17:51 | Progress Note ---
Assessment and Plan Assessment and plan: 39-year-old male with a medical history of diabetes admitted with a chief complaint of right foot pain. Patient states that he has experienced pain, redness, and swelling to his right foot over the past 1 week with worsening symptoms over the past 3 days. Patient states that his pain is currently 6/10, constant, worsened with weightbearing, relieved with rest. Patient also reports darkening of his right fourth toe. Patient transported to [facility] via private vehicle for further care and evaluation. Here in the ER, patient was found to have cellulitis to right lower extremity, as well as suspected osteomyelitis to the right fourth toe, systemic inflammatory response syndrome, uncontrolled diabetes mellitus. Patient admitted to medical floor and initiated on IV antibiotic therapy. Surgical team consulted in ED for probable amputation. 10/18 - 10/23. Patient had debridement and I&D of the right fourth toe - intraoperatively, he had extensive purulent fluid and ischemic tissue around the base of the fourth toe and extending to the forefoot. Had TMA of the right fourth fourth toe on 10/23. Subsequently had vascular studies done performed that showed peripheral vascular disease. Vascular surgery was consulted for further evaluation. 10/24. Patient seen and examined at bedside this morning. Patient had spiked fever overnight with maximum temperature 101 Fahrenheit. Stat blood culture has been ordered. Patient is currently on vancomycin. We will add Zosyn for now. Has abnormal Doppler of the extremities. Plan for a diagnostic angiogram for possible revascularization as per vascular surgeon. 10/25. Has no complaints today. His CRP and ESR are elevated. Reviewed his results - no pathology result seen. Will get MRI right foot to rule out osteomyelitis. Continue antibiotics. He had diagnostic angiogram yesterday which showed no obstruction. Surgery following. 10/26. MRI right foot showed mild osteomyelitis of the third and fifth metatarsal. Had fifth toe amputation today. He will need prolonged prolonged antibiotics. ID consulted. Assessment and plan 1. Diabetic foot infection with abscess with mild osteomyelitis. -Patient is now status post incision and drainage, debridement and amputation of the right fourth and fifth toe -Wound culture from 10/20 - strep and jeffrey. Switched antibiotics to cetriaxone for now. -10/24 - ESR and CRP markedly elevated. MRI RLE shows OM involving the head and neck of fifth metatarsal and third metastarsal. ID consulted. -Blood culture 10/24 - negative so far -General surgery and vascular surgery recommendations appreciated 2. Uncontrolled diabetes mellitus -Continue Lantus and lispro -Monitor blood glucose DVT prophylaxis-Heparin Full code History Interval history: See assessment and plan Hospitalist Physical - Constitutional Vitals: Temp Pulse Resp BP Pulse Ox 97.9 F 98 H 18 136/84 96 10/27/19 15:49 10/27/19 15:49 10/27/19 15:49 10/27/19 15:49 10/27/19 15:49 General appearance: Present: no acute distress - EENT Eyes: Present: PERRL - Neck Neck: Present: supple - Respiratory Respiratory: bilateral: CTA - Cardiovascular Heart Sounds: Present: S1 & S2 - Extremities Extremities: abnormal (Right foot dressing intact) - Abdominal General gastrointestinal: soft, non-tender, non-distended, normal bowel sounds - Psychiatric Psychiatric: appropriate mood/affect - Neurologic Neurologic: CNII-XII intact Results - Labs CBC & Chem 7: 10/27/19 04:28 10/27/19 04:28 Labs: Laboratory Last Values WBC 7.6 K/mm3 (4.5-11.0) 10/27/19 04:28 RBC 3.73 M/mm3 (3.65-5.03) 10/27/19 04:28 Hgb 11.2 gm/dl (11.8-15.2) L 10/27/19 04:28 Hct 33.1 % (35.5-45.6) L 10/27/19 04:28 MCV 89 fl (84-94) 10/27/19 04:28 MCH 30 pg (28-32) 10/27/19 04:28 MCHC 34 % (32-34) 10/27/19 04:28 RDW 12.4 % (13.2-15.2) L 10/27/19 04:28 Plt Count 401 K/mm3 (140-440) 10/27/19 04:28 Lymph % (Auto) 18.6 % (13.4-35.0) 10/27/19 04:28 [place] % (Auto) 7.0 % (0.0-7.3) 10/27/19 04:28 Eos % (Auto) 2.7 % (0.0-4.3) 10/27/19 04:28 Baso % (Auto) 0.6 % (0.0-1.8) 10/27/19 04:28 Lymph # 1.4 K/mm3 (1.2-5.4) 10/27/19 04:28 [place] # 0.5 K/mm3 (0.0-0.8) 10/27/19 04:28 Eos # 0.2 K/mm3 (0.0-0.4) 10/27/19 04:28 Baso # 0.0 K/mm3 (0.0-0.1) 10/27/19 04:28 Seg Neutrophils % 71.1 % (40.0-70.0) H 10/27/19 04:28 Seg Neutrophils # 5.4 K/mm3 (1.8-7.7) 10/27/19 04:28 ESR 120 mm/Hr (0-20) 10/25/19 16:47 PT 14.0 Sec. (12.2-14.9) 10/19/19 10:10 INR 1.07 (0.87-1.13) 10/19/19 10:10 VBG pH 7.432 (7.320-7.420) H 10/19/19 10:10 Sodium 142 mmol/L (137-145) 10/27/19 04:28 Potassium 3.6 mmol/L (3.6-5.0) 10/27/19 04:28 Chloride 104.5 mmol/L (98-107) 10/27/19 04:28 Carbon Dioxide 25 mmol/L (22-30) 10/27/19 04:28 Anion Gap 16 mmol/L 10/27/19 04:28 BUN 10 mg/dL (9-20) 10/27/19 04:28 Creatinine 0.7 mg/dL (0.8-1.3) L 10/27/19 04:28 Estimated GFR > 60 ml/min 10/27/19 04:28 BUN/Creatinine Ratio 14 % 10/27/19 04:28 Glucose 249 mg/dL (75-100) H 10/27/19 04:28 POC Glucose 262 (70-105) H 10/27/19 16:02 Lactic Acid 1.30 mmol/L (0.7-2.0) 10/19/19 14:50 Calcium 8.3 mg/dL (8.4-10.2) L 10/27/19 04:28 Total Bilirubin 0.20 mg/dL (0.1-1.2) 10/27/19 04:28 AST 12 units/L (5-40) 10/27/19 04:28 ALT 17 units/L (7-56) 10/27/19 04:28 Alkaline Phosphatase 209 units/L (35-129) H 10/27/19 04:28 C-Reactive Protein 20.50 mg/dL (0.00-1.30) H 10/25/19 16:47 Total Protein 6.7 g/dL (6.3-8.2) 10/27/19 04:28 Albumin 2.2 g/dL (3.9-5) L 10/27/19 04:28 Albumin/Globulin Ratio 0.5 % 10/27/19 04:28 Procalcitonin 1.23 ng/mL (<0.15) 10/25/19 16:47 Urine Color Yellow (Yellow) 10/19/19 13:25 Urine Turbidity Clear (Clear) 10/19/19 13:25 Urine pH 6.0 (5.0-7.0) 10/19/19 13:25 Ur Specific [place] 1.008 (1.003-1.030) 10/19/19 13:25 Urine Protein <15 mg/dl mg/dL (Negative) 10/19/19 13:25 Urine Glucose (UA) 50 mg/dL (Negative) 10/19/19 13:25 Urine Ketones 20 mg/dL (Negative) 10/19/19 13:25 Urine Blood Mod (Negative) 10/19/19 13:25 Urine Nitrite Neg (Negative) 10/19/19 13:25 Urine Bilirubin Neg (Negative) 10/19/19 13:25 Urine Urobilinogen 4.0 mg/dL (<2.0) 10/19/19 13:25 Ur Leukocyte Esterase Neg (Negative) 10/19/19 13:25 Urine WBC (Auto) 1.0 /HPF (0.0-6.0) 10/19/19 13:25 Urine RBC (Auto) 3.0 /HPF (0.0-6.0) 10/19/19 13:25 U Epithel Cells (Auto) < 1.0 /HPF (0-13.0) 10/19/19 13:25 Urine Bacteria (Auto) 1+ /HPF (Negative) 10/19/19 13:25 Urine Mucus Few /HPF 10/19/19 13:25 Vancomycin Trough 18.3 ug/mL (5.0-20.0) 10/26/19 07:02 Coronavirus (PCR) Negative (Negative) 10/20/19 08:04 Microbiology: Microbiology 10/25/19 16:59 Peripheral/Venous Blood Culture - Preliminary NO GROWTH AFTER 48 HOURS 10/25/19 16:47 Peripheral/Venous Blood Culture - Preliminary NO GROWTH AFTER 48 HOURS 10/21/19 Unknown Toe - Right Fourth Anaerobic Culture - Preliminary 10/19/19 Unknown Urine,Clean Catch Urine Culture - Final NO GROWTH AFTER 48 HOURS 10/24/19 Unknown Foot - Right Anaerobic Culture - Preliminary Moe/IV: Voiding Method Urinal IV Catheter Type [Right Peripheral IV Forearm] IV Catheter Type [Left INT / Saline Lock Antecubital] Active Medications - Current Medications Current Medications: Generic Name Dose Route Start Last Admin Trade Name Freq PRN Reason Stop Dose Admin Acetaminophen 650 mg 10/19/19 16:43 10/25/19 21:44 Tylenol PO 650 mg Q4H PRN Administration Pain MILD(1-3)/Fever >100.5/THORNTON Albuterol 2.5 mg 10/19/19 16:43 Proventil IH Q4HRT PRN Shortness Of Breath Dextrose 50 ml 10/19/19 16:46 D50w (25gm) Syringe IV Q30MIN PRN Hypoglycemia Protocol Hydromorphone HCl 0.5 mg 10/27/19 12:13 10/27/19 13:50 Dilaudid IV 0.5 mg Q10MIN PRN Administration Pain , Severe (7-10) Sodium Chloride 1,000 mls @ 100 mls/hr 10/21/19 09:00 10/27/19 05:13 Nacl 0.9% 1000 Ml IV 100 mls/hr DIRECT JCARLOS Administration Ceftriaxone Sodium 1 gm in 50 mls @ 100 mls/hr 10/26/19 14:00 10/27/19 15:56 Rocephin/Ns 1 Gm/50 Ml IV 100 mls/hr DAILY@1400 JCARLOS Administration Protocol Sodium Chloride 1,000 mls @ 100 mls/hr 10/27/19 11:45 10/27/19 11:40 Nacl 0.9% 1000 Ml IV 100 mls/hr DIRECT JCARLOS Administration Insulin Glargine 6 units 10/25/19 22:00 10/26/19 21:37 Lantus SUB-Q 6 units QHS JCARLOS Administration Insulin Human Lispro 0 unit 10/25/19 11:30 10/27/19 16:43 Humalog SUB-Q 9 unit ACHS JCARLOS Administration Protocol Insulin Human Regular 6 unit 10/27/19 12:11 10/27/19 12:40 Humulin R SUB-Q 10/27/19 23:59 6 unit ONCE JCARLOS Administration Lisinopril 2.5 mg 10/19/19 10:00 10/27/19 10:18 Zestril PO Not Given QDAY JCARLOS Ondansetron HCl 4 mg 10/19/19 16:43 Zofran IV Q8H PRN Nausea And Vomiting Oxycodone/Acetaminophen 1 tab 10/19/19 16:43 10/26/19 13:04 Percocet 5/325 PO 1 tab Q6H PRN Administration Pain, Moderate (4-6) Sodium Chloride 10 ml 10/19/19 22:00 10/27/19 10:18 Sodium Chloride Flush Syringe 10 Ml IV Not Given BID JCARLOS Sodium Chloride 10 ml 10/19/19 16:43 Sodium Chloride Flush Syringe 10 Ml IV PRN PRN LINE FLUSH Nutrition/Malnutrition Assess - Dietary Evaluation Nutrition/Malnutrition Findings: Nutrition Notes Start: 10/26/19 13:55 Freq: Status: Active Protocol: Document 10/26/19 13:55 LM (Rec: 10/26/19 13:56 LM [id number]) Nutrition Notes Need for Assessment generated from: LOS Initial or Follow up Brief Note Subjective/Other Information Screen for LOS. Pt with 100% intakes in chart. Nutrition Intervention Revisit per MD consult or patient Sign Off request:
[2019-10-27] MEDS: oxyCODONE /ACETAMINOPHEN 5-325MG TAB PO PRN (23:09)
[2019-10-27] MEDS: INSULIN GLARGINE 100 UNITS/ML SUB-Q SCH (23:09)
[2019-10-28 06:37] LABS: Basophils % (Auto) 0.5 % (0.0-1.8); Eosinophils # (Auto) 0.2 K/mm3 (0.0-0.4); Eosinophils % (Auto) 1.8 % (0.0-4.3); Hemoglobin 11.3 gm/dl (11.8-15.2); Lymphocytes # (Auto) 1.7 K/mm3 (1.2-5.4); Lymphocytes % (Auto) 20.7 % (13.4-35.0); Mean Corpuscular HGB Conc 33 % (32-34); Mean Corpuscular Volume 89 fl (84-94); Monocytes # (Auto) 0.7 K/mm3 (0.0-0.8); Monocytes % (Auto) 8.1 % (0.0-7.3); Platelet Count 406 K/mm3 (140-440); Red Blood Count 3.81 M/mm3 (3.65-5.03); Red Cell Distribution Width 12.4 % (13.2-15.2)
[2019-10-28 07:12] LABS: Alanine Aminotransferase 20 units/L (7-56); Albumin 2.5 g/dL (3.9-5); Blood Urea Nitrogen 7 mg/dL (9-20); Calcium 8.6 mg/dL (8.4-10.2); Hemolysis Index 3
[2019-10-28 07:13] LABS: BUN/Creatinine Ratio 10
[2019-10-28] MEDS ORDERED: POTASSIUM CHLORIDE ER 20 MEQ TAB PO ONE (08:00)
[2019-10-28] MEDS: INSULIN LISPRO 100 UNIT/ML VIAL 3 mL SUB-Q SCH ×5 (08:34→21:53)
[2019-10-28] MEDS: LISINOPRIL 5 MG TAB PO SCH (09:26)
[2019-10-28] MEDS: cefTRIAXone/NS 1 GM/50 ML 1 GM/50 ML BAG IV SCH (13:07)
[2019-10-28] MEDS: SODIUM CHLORIDE 0.9% 1000 ML 1,000 ML IV SCH (13:10)
--- NOTE | 2019-10-28 15:52 | Consultation ---
History of Present Illness - Reason for Consult Consult date: 10/28/19 foot osteomyelitis Requesting physician: LORENZA ABRAHAM - History of Present Illness The patient is a 39-year-old male with diabetes mellitus was admitted to the hospital with right foot pain. He was found to have extensive cellulitis and gangrenous changes with suspected osteomyelitis of the right fourth toe. He was started on empiric antibiotics, general surgery was consulted. Patient underwent an I&D of the right fourth toe followed by a transmetatarsal amputation of the fourth toe on 10/24/2019. He was also seen by vascular surgery and diagnostic angiogram did not reveal any significant vascular disease. Due to gangrenous changes of his fifth toe, on 10/27/2019, he underwent right fifth toe transmetatarsal amputation along with debridement of his right plantar wound. Infectious diseases was consulted for antibiotic recommendations. Patient had a low-grade temperature last night, afebrile today. Leukocytosis has been improving. Review of Systems: General: no fevers,chills or rigors HEENT: no new visual disturbance Respiratory: No cough, sputum, hemoptysis or shortness of breath Cardiovascular: No chest pain, syncope Gastrointestinal: No nausea, vomiting or diarrhea Genitourinary: No dysuria or hematuria Musculoskeletal: No new or worsening neck pain or back pain Neurologic: No headaches, seizures Hematologic: No easy bruising or bleeding Endocrine: No night sweats or acute weight loss Skin: negative for rash, jaundice Psychiatric: No suicidal or homicidal ideation Past History Past Medical History: diabetes Past Surgical History: No surgical history, Other (Reviewed) Social history: single. denies: smoking, alcohol abuse Family history: diabetes, hypertension Medications and Allergies Allergies Allergy/AdvReac Type Severity Reaction Status Date / Time No Known Allergies Allergy Verified 06/23/17 09:20 Home Medications Medication Instructions Recorded Confirmed Last Taken Type HYDROcodone/APAP 7.5-325 [[place] 1 each PO Q6HR PRN #20 tablet 10/21/15 10/21/19 Unknown Rx 7.5/325] cephALEXin [Keflex] 1,000 mg PO Q12HR #20 cap 10/21/15 10/21/19 Unknown Rx HYDROcodone/APAP 5-325 [[place] 1 each PO Q6HR PRN #10 tablet 08/12/16 10/21/19 Unknown Rx 5/325] cephALEXin [Keflex] 1,000 mg PO Q12HR #28 cap 08/12/16 10/21/19 Unknown Rx Mupirocin [Bactroban 2%] 1 applic TP TID 5 Days tube 08/18/16 10/21/19 Unknown Rx Sulfamethoxazole/Trimethoprim 1 each PO BID #20 tablet 06/23/17 10/21/19 Unknown Rx [Bactrim DS TAB] cephALEXin [Keflex] 500 mg PO QID #30 capsule 06/23/17 10/21/19 Unknown Rx metFORMIN [Glucophage] 500 mg PO BID #60 tablet 06/23/17 10/21/19 Unknown Rx traMADoL [Ultram 50 MG tab] 50 mg PO Q6HR PRN #20 tablet 06/23/17 10/21/19 Unknown Rx Sulfamethoxazole/Trimethoprim 1 each PO BID 10 Days #20 tablet 10/17/18 10/21/19 Unknown Rx [Bactrim DS TAB] cephALEXin [Keflex] 500 mg PO Q6HR 10 Days #40 capsule 10/17/18 10/21/19 Unknown Rx Active Meds: Active Medications Acetaminophen (Tylenol) 650 mg PO Q4H PRN PRN Reason: Pain MILD(1-3)/Fever >100.5/THORNTON Last Admin: 10/25/19 21:44 Dose: 650 mg Documented by: Albuterol (Proventil) 2.5 mg IH Q4HRT PRN PRN Reason: Shortness Of Breath Dextrose (D50w (25gm) Syringe) 50 ml IV Q30MIN PRN; Protocol PRN Reason: Hypoglycemia Hydromorphone HCl (Dilaudid) 0.5 mg IV Q10MIN PRN PRN Reason: Pain , Severe (7-10) Last Admin: 10/27/19 13:50 Dose: 0.5 mg Documented by: Sodium Chloride (Nacl 0.9% 1000 Ml) 1,000 mls @ 100 mls/hr IV DIRECT JCARLOS Last Admin: 10/28/19 13:10 Dose: 100 mls/hr Documented by: Ceftriaxone Sodium (Rocephin/Ns 1 Gm/50 Ml) 1 gm in 50 mls @ 100 mls/hr IV DAILY@1400 JCARLOS; Protocol Last Admin: 10/28/19 13:07 Dose: 100 mls/hr Documented by: Sodium Chloride (Nacl 0.9% 1000 Ml) 1,000 mls @ 100 mls/hr IV DIRECT [facility] Last Admin: 10/27/19 11:40 Dose: 100 mls/hr Documented by: Insulin Glargine (Lantus) 6 units SUB-Q QHS [facility] Last Admin: 10/27/19 23:09 Dose: 6 units Documented by: Insulin Human Lispro (Humalog) 0 unit SUB-Q ACHS [facility]; Protocol Last Admin: 10/28/19 12:34 Dose: 9 unit Documented by: Lisinopril (Zestril) 2.5 mg PO QDAY [facility] Last Admin: 10/28/19 09:26 Dose: 2.5 mg Documented by: Ondansetron HCl (Zofran) 4 mg IV Q8H PRN PRN Reason: Nausea And Vomiting Oxycodone/Acetaminophen (Percocet 5/325) 1 tab PO Q6H PRN PRN Reason: Pain, Moderate (4-6) Last Admin: 10/27/19 23:09 Dose: 1 tab Documented by: Sodium Chloride (Sodium Chloride Flush Syringe 10 Ml) 10 ml IV BID [facility] Last Admin: 10/28/19 09:26 Dose: 10 ml Documented by: Sodium Chloride (Sodium Chloride Flush Syringe 10 Ml) 10 ml IV PRN PRN PRN Reason: LINE FLUSH Physical Examination - Physical Exam Narrative exam: Physical Exam: Constitutional: Alert, cooperative. No acute distress Head, Ears, Nose: Normocephalic, atraumatic. External ears, nose normal Eyes: Conjunctivae/corneas clear. No icterus. No ptosis. Neck: Supple, no meningeal signs Cardiovascular: S1, S2 normal. Respiratory: Good air entry, clear to auscultation bilaterally GI: Soft, non-tender; bowel sounds normal. No peritoneal signs Musculoskeletal: Right foot in dressing, large wound in the lateral aspect of the foot Skin: No rash or abscess Hem/Lymphatic: No palpable cervical or supraclavicular nodes. No lymphangitis Psych: Mood ok. Affect normal Neurological: Awake, alert, oriented. No gross abnormality - Constitutional Vitals: Vital Signs Temp Pulse Resp BP Pulse Ox 98.6 F 76 21 136/78 97 10/28/19 08:51 10/28/19 09:26 10/28/19 09:00 10/28/19 09:26 10/28/19 08:51 Temperature -Last 24 Hours Temperature 98.6 F Temperature 99.8 F Temperature 100.1 F Temperature 99.2 F Temperature 97.9 F Results - Labs CBC & Chem 7: 10/28/19 04:25 10/28/19 04:25 Labs: Abnormal lab results 10/27/19 10/27/19 10/28/19 Range/Units 16:02 22:16 04:25 Hgb 11.3 L (11.8-15.2) gm/dl Hct 34.0 L (35.5-45.6) % RDW 12.4 L (13.2-15.2) % [place] % (Auto) 8.1 H (0.0-7.3) % Potassium (3.6-5.0) mmol/L BUN (9-20) mg/dL Creatinine (0.8-1.3) mg/dL Glucose (75-100) mg/dL POC Glucose 262 H 257 H (70-105) Alkaline Phosphatase (35-129) units/L Albumin (3.9-5) g/dL 10/28/19 10/28/19 10/28/19 Range/Units 04:25 07:59 11:49 Hgb (11.8-15.2) gm/dl Hct (35.5-45.6) % RDW (13.2-15.2) % [place] % (Auto) (0.0-7.3) % Potassium 3.2 L (3.6-5.0) mmol/L BUN 7 L (9-20) mg/dL Creatinine 0.7 L (0.8-1.3) mg/dL Glucose 167 H (75-100) mg/dL POC Glucose 145 H 286 H (70-105) Alkaline Phosphatase 195 H (35-129) units/L Albumin 2.5 L (3.9-5) g/dL - Imaging and Cardiology Chest x-ray: report reviewed Assessment and Plan Cultures: 10/19/2019 blood culture: No growth Urine culture: No growth 10/21/2019 right toe intraoperative cultures: Group B streptococcus, [place] albicans 10/25/2019 blood culture: No growth A/P: 39-year-old male with diabetes mellitus: #Sepsis secondary to right foot acute osteomyelitis, abscess and necrotizing infection: Status post fourth and fifth toe amputations. MRI on 10/27/2019 also suggestive of mild osteomyelitis involving the lateral aspect of the head/neck of the third metatarsal. Cultures have grown group B streptococcus. [place] albicans in the wound does not need to be treated. #Diabetes mellitus, uncontrolled. Recs: Considering his extent of infection, and possible residual osteomyelitis, recommend IV ceftriaxone 2 g daily for 4 more weeks ending 11/24/[address] midline prior to discharge Case management orders placed Continue aggressive wound care and tight glycemic control Navneet Lee MD, FACP [facility] C: [phone] O: [phone] F: [phone]
--- NOTE | 2019-10-28 16:36 | Progress Note ---
Assessment and Plan Assessment and plan: 39-year-old male with a medical history of diabetes admitted with a chief complaint of right foot pain. Patient states that he has experienced pain, redness, and swelling to his right foot over the past 1 week with worsening symptoms over the past 3 days. Patient states that his pain is currently 6/10, constant, worsened with weightbearing, relieved with rest. Patient also reports darkening of his right fourth toe. Patient transported to [facility] via private vehicle for further care and evaluation. Here in the ER, patient was found to have cellulitis to right lower extremity, as well as suspected osteomyelitis to the right fourth toe, systemic inflammatory response syndrome, uncontrolled diabetes mellitus. Patient admitted to medical floor and initiated on IV antibiotic therapy. Surgical team consulted in ED for probable amputation. 10/18 - 10/23. Patient had debridement and I&D of the right fourth toe - intraoperatively, he had extensive purulent fluid and ischemic tissue around the base of the fourth toe and extending to the forefoot. Had TMA of the right fourth fourth toe on 10/23. Subsequently had vascular studies done performed that showed peripheral vascular disease. Vascular surgery was consulted for further evaluation. 10/24. Patient seen and examined at bedside this morning. Patient had spiked fever overnight with maximum temperature 101 Fahrenheit. Stat blood culture has been ordered. Patient is currently on vancomycin. We will add Zosyn for now. Has abnormal Doppler of the extremities. Plan for a diagnostic angiogram for possible revascularization as per vascular surgeon. 10/25. Has no complaints today. His CRP and ESR are elevated. Reviewed his results - no pathology result seen. Will get MRI right foot to rule out osteomyelitis. Continue antibiotics. He had diagnostic angiogram yesterday which showed no obstruction. Surgery following. 10/26. MRI right foot showed mild osteomyelitis of the third and fifth metatarsal. Had fifth toe amputation today. He will need prolonged prolonged antibiotics. ID consulted. 10/27. ID recs appreciated. He will need 4 weeks antibiotics. Discussed plan with case planner. Midline order has been placed Assessment and plan 1. Diabetic foot infection with abscess with mild osteomyelitis. -Patient is now status post incision and drainage, debridement and amputation of the right fourth and fifth toe -Wound culture from 10/20 - strep and jeffrey. Switched antibiotics to cetriaxone for now. -10/24 - ESR and CRP markedly elevated. MRI RLE shows OM involving the head and neck of fifth metatarsal and third metastarsal. -ID recommends prolonged antibiotics for 4 weeks. Midline order placed -Blood culture 10/24 - Negative -General surgery and vascular surgery recommendations appreciated 2. Uncontrolled diabetes mellitus -Continue Lantus and lispro -Monitor blood glucose DVT prophylaxis-Heparin Full code History Interval history: See assessment and plan Hospitalist Physical - Constitutional Vitals: Temp Pulse Resp BP Pulse Ox 98.6 F 76 21 136/78 97 10/28/19 08:51 10/28/19 09:26 10/28/19 09:00 10/28/19 09:26 10/28/19 08:51 General appearance: Present: no acute distress - EENT Eyes: Present: PERRL - Neck Neck: Present: supple, normal ROM - Respiratory Respiratory effort: normal Respiratory: bilateral: CTA - Cardiovascular Heart Sounds: Present: S1 & S2 - Extremities Extremities: abnormal (Right foot dressing) - Abdominal General gastrointestinal: soft, non-tender, non-distended - Psychiatric Psychiatric: appropriate mood/affect - Neurologic Neurologic: CNII-XII intact Results - Labs CBC & Chem 7: 10/28/19 04:25 10/28/19 04:25 Labs: Laboratory Last Values WBC 8.3 K/mm3 (4.5-11.0) 10/28/19 04:25 RBC 3.81 M/mm3 (3.65-5.03) 10/28/19 04:25 Hgb 11.3 gm/dl (11.8-15.2) L 10/28/19 04:25 Hct 34.0 % (35.5-45.6) L 10/28/19 04:25 MCV 89 fl (84-94) 10/28/19 04:25 MCH 30 pg (28-32) 10/28/19 04:25 MCHC 33 % (32-34) 10/28/19 04:25 RDW 12.4 % (13.2-15.2) L 10/28/19 04:25 Plt Count 406 K/mm3 (140-440) 10/28/19 04:25 Lymph % (Auto) 20.7 % (13.4-35.0) 10/28/19 04:25 [place] % (Auto) 8.1 % (0.0-7.3) H 10/28/19 04:25 Eos % (Auto) 1.8 % (0.0-4.3) 10/28/19 04:25 Baso % (Auto) 0.5 % (0.0-1.8) 10/28/19 04:25 Lymph # 1.7 K/mm3 (1.2-5.4) 10/28/19 04:25 [place] # 0.7 K/mm3 (0.0-0.8) 10/28/19 04:25 Eos # 0.2 K/mm3 (0.0-0.4) 10/28/19 04:25 Baso # 0.0 K/mm3 (0.0-0.1) 10/28/19 04:25 Seg Neutrophils % 68.9 % (40.0-70.0) 10/28/19 04:25 Seg Neutrophils # 5.7 K/mm3 (1.8-7.7) 10/28/19 04:25 ESR 120 mm/Hr (0-20) 10/25/19 16:47 PT 14.0 Sec. (12.2-14.9) 10/19/19 10:10 INR 1.07 (0.87-1.13) 10/19/19 10:10 VBG pH 7.432 (7.320-7.420) H 10/19/19 10:10 Sodium 143 mmol/L (137-145) 10/28/19 04:25 Potassium 3.2 mmol/L (3.6-5.0) L 10/28/19 04:25 Chloride 102.7 mmol/L (98-107) 10/28/19 04:25 Carbon Dioxide 24 mmol/L (22-30) 10/28/19 04:25 Anion Gap 20 mmol/L 10/28/19 04:25 BUN 7 mg/dL (9-20) L 10/28/19 04:25 Creatinine 0.7 mg/dL (0.8-1.3) L 10/28/19 04:25 Estimated GFR > 60 ml/min 10/28/19 04:25 BUN/Creatinine Ratio 10 % 10/28/19 04:25 Glucose 167 mg/dL (75-100) H 10/28/19 04:25 POC Glucose 302 (70-105) H 10/28/19 16:25 Lactic Acid 1.30 mmol/L (0.7-2.0) 10/19/19 14:50 Calcium 8.6 mg/dL (8.4-10.2) 10/28/19 04:25 Total Bilirubin 0.20 mg/dL (0.1-1.2) 10/28/19 04:25 AST 25 units/L (5-40) 10/28/19 04:25 ALT 20 units/L (7-56) 10/28/19 04:25 Alkaline Phosphatase 195 units/L (35-129) H 10/28/19 04:25 C-Reactive Protein 20.50 mg/dL (0.00-1.30) H 10/25/19 16:47 Total Protein 7.1 g/dL (6.3-8.2) 10/28/19 04:25 Albumin 2.5 g/dL (3.9-5) L 10/28/19 04:25 Albumin/Globulin Ratio 0.5 % 10/28/19 04:25 Procalcitonin 1.23 ng/mL (<0.15) 10/25/19 16:47 Urine Color Yellow (Yellow) 10/19/19 13:25 Urine Turbidity Clear (Clear) 10/19/19 13:25 Urine pH 6.0 (5.0-7.0) 10/19/19 13:25 Ur Specific [place] 1.008 (1.003-1.030) 10/19/19 13:25 Urine Protein <15 mg/dl mg/dL (Negative) 10/19/19 13:25 Urine Glucose (UA) 50 mg/dL (Negative) 10/19/19 13:25 Urine Ketones 20 mg/dL (Negative) 10/19/19 13:25 Urine Blood Mod (Negative) 10/19/19 13:25 Urine Nitrite Neg (Negative) 10/19/19 13:25 Urine Bilirubin Neg (Negative) 10/19/19 13:25 Urine Urobilinogen 4.0 mg/dL (<2.0) 10/19/19 13:25 Ur Leukocyte Esterase Neg (Negative) 10/19/19 13:25 Urine WBC (Auto) 1.0 /HPF (0.0-6.0) 10/19/19 13:25 Urine RBC (Auto) 3.0 /HPF (0.0-6.0) 10/19/19 13:25 U Epithel Cells (Auto) < 1.0 /HPF (0-13.0) 10/19/19 13:25 Urine Bacteria (Auto) 1+ /HPF (Negative) 10/19/19 13:25 Urine Mucus Few /HPF 10/19/19 13:25 Vancomycin Trough 18.3 ug/mL (5.0-20.0) 10/26/19 07:02 Coronavirus (PCR) Negative (Negative) 10/20/19 08:04 Microbiology: Microbiology 10/24/19 Unknown Foot - Right Anaerobic Culture - Final 10/25/19 16:59 Peripheral/Venous Blood Culture - Preliminary NO GROWTH AFTER 48 HOURS 10/25/19 16:47 Peripheral/Venous Blood Culture - Preliminary NO GROWTH AFTER 48 HOURS Moe/IV: Voiding Method Urinal IV Catheter Type [Right Peripheral IV Forearm] IV Catheter Type [Left Forearm INT / Saline Lock ] IV Catheter Type [Left INT / Saline Lock Antecubital] Active Medications - Current Medications Current Medications: Generic Name Dose Route Start Last Admin Trade Name Freq PRN Reason Stop Dose Admin Acetaminophen 650 mg 10/19/19 16:43 10/25/19 21:44 Tylenol PO 650 mg Q4H PRN Administration Pain MILD(1-3)/Fever >100.5/THORNTON Albuterol 2.5 mg 10/19/19 16:43 Proventil IH Q4HRT PRN Shortness Of Breath Dextrose 50 ml 10/19/19 16:46 D50w (25gm) Syringe IV Q30MIN PRN Hypoglycemia Protocol Hydromorphone HCl 0.5 mg 10/27/19 12:13 10/27/19 13:50 Dilaudid IV 0.5 mg Q10MIN PRN Administration Pain , Severe (7-10) Sodium Chloride 1,000 mls @ 100 mls/hr 10/21/19 09:00 10/28/19 13:10 Nacl 0.9% 1000 Ml IV 100 mls/hr DIRECT JCARLOS Administration Ceftriaxone Sodium 1 gm in 50 mls @ 100 mls/hr 10/26/19 14:00 10/28/19 13:07 Rocephin/Ns 1 Gm/50 Ml IV 100 mls/hr DAILY@1400 JCARLOS Administration Protocol Sodium Chloride 1,000 mls @ 100 mls/hr 10/27/19 11:45 10/27/19 11:40 Nacl 0.9% 1000 Ml IV 100 mls/hr DIRECT JCARLOS Administration Insulin Glargine 6 units 10/25/19 22:00 10/27/19 23:09 Lantus SUB-Q 6 units QHS JCARLOS Administration Insulin Human Lispro 0 unit 10/25/19 11:30 10/28/19 12:34 Humalog SUB-Q 9 unit ACHS JCARLOS Administration Protocol Lisinopril 2.5 mg 10/19/19 10:00 10/28/19 09:26 Zestril PO 2.5 mg QDAY JCARLOS Administration Ondansetron HCl 4 mg 10/19/19 16:43 Zofran IV Q8H PRN Nausea And Vomiting Oxycodone/Acetaminophen 1 tab 10/19/19 16:43 10/27/19 23:09 Percocet 5/325 PO 1 tab Q6H PRN Administration Pain, Moderate (4-6) Sodium Chloride 10 ml 10/19/19 22:00 10/28/19 09:26 Sodium Chloride Flush Syringe 10 Ml IV 10 ml BID JCARLOS Administration Sodium Chloride 10 ml 10/19/19 16:43 Sodium Chloride Flush Syringe 10 Ml IV PRN PRN LINE FLUSH Nutrition/Malnutrition Assess - Dietary Evaluation Nutrition/Malnutrition Findings: Nutrition Notes Start: 10/26/19 13:55 Freq: Status: Active Protocol: Document 10/26/19 13:55 LM (Rec: 10/26/19 13:56 LM [id number]) Nutrition Notes Need for Assessment generated from: LOS Initial or Follow up Brief Note Subjective/Other Information Screen for LOS. Pt with 100% intakes in chart. Nutrition Intervention Revisit per MD consult or patient Sign Off request:
[2019-10-28] MEDS: INSULIN GLARGINE 100 UNITS/ML SUB-Q SCH (21:52)
[2019-10-29] MEDS: SODIUM CHLORIDE 0.9% 1000 ML 1,000 ML IV SCH ×3 (00:18→21:26)
[2019-10-29 04:06] LABS: Basophils % (Auto) 0.5 % (0.0-1.8); Eosinophils # (Auto) 0.2 K/mm3 (0.0-0.4); Eosinophils % (Auto) 1.9 % (0.0-4.3); Hemoglobin 10.8 gm/dl (11.8-15.2); Lymphocytes # (Auto) 1.6 K/mm3 (1.2-5.4); Lymphocytes % (Auto) 19.4 % (13.4-35.0); Mean Corpuscular HGB Conc 34 % (32-34); Mean Corpuscular Volume 90 fl (84-94); Monocytes # (Auto) 0.6 K/mm3 (0.0-0.8); Monocytes % (Auto) 7.2 % (0.0-7.3); Platelet Count 372 K/mm3 (140-440); Red Blood Count 3.54 M/mm3 (3.65-5.03); Red Cell Distribution Width 12.4 % (13.2-15.2)
[2019-10-29 04:24] LABS: Alanine Aminotransferase 20 units/L (7-56); Albumin 2.3 g/dL (3.9-5); Blood Urea Nitrogen 9 mg/dL (9-20); Calcium 8.6 mg/dL (8.4-10.2); Hemolysis Index 5
[2019-10-29 04:33] LABS: BUN/Creatinine Ratio 13
[2019-10-29] MEDS: INSULIN LISPRO 100 UNIT/ML VIAL 3 mL SUB-Q SCH ×4 (08:00→21:26)
[2019-10-29] MEDS: LISINOPRIL 5 MG TAB PO SCH (10:53)
[2019-10-29] MEDS: POTASSIUM CHLORIDE ER 20 MEQ TAB PO SCH (10:53)
[2019-10-29] MEDS: cefTRIAXone/NS 2 GM/100 ML 2 GM/100 ML BAG IV SCH (12:07)
--- NOTE | 2019-10-29 13:52 | Progress Note ---
Assessment and Plan Assessment and plan: 39-year-old male with a medical history of diabetes admitted with a chief complaint of right foot pain. Patient states that he has experienced pain, redness, and swelling to his right foot over the past 1 week with worsening symptoms over the past 3 days. Patient states that his pain is currently 6/10, constant, worsened with weightbearing, relieved with rest. Patient also reports darkening of his right fourth toe. Patient transported to [facility] via private vehicle for further care and evaluation. Here in the ER, patient was found to have cellulitis to right lower extremity, as well as suspected osteomyelitis to the right fourth toe, systemic inflammatory response syndrome, uncontrolled diabetes mellitus. Patient admitted to medical floor and initiated on IV antibiotic therapy. Surgical team consulted in ED for probable amputation. 10/18 - 10/23. Patient had debridement and I&D of the right fourth toe - intraoperatively, he had extensive purulent fluid and ischemic tissue around the base of the fourth toe and extending to the forefoot. Had TMA of the right fourth fourth toe on 10/23. Subsequently had vascular studies done performed that showed peripheral vascular disease. Vascular surgery was consulted for further evaluation. 10/24. Patient seen and examined at bedside this morning. Patient had spiked fever overnight with maximum temperature 101 Fahrenheit. Stat blood culture has been ordered. Patient is currently on vancomycin. We will add Zosyn for now. Has abnormal Doppler of the extremities. Plan for a diagnostic angiogram for possible revascularization as per vascular surgeon. 10/25. Has no complaints today. His CRP and ESR are elevated. Reviewed his results - no pathology result seen. Will get MRI right foot to rule out osteomyelitis. Continue antibiotics. He had diagnostic angiogram yesterday which showed no obstruction. Surgery following. 10/26. MRI right foot showed mild osteomyelitis of the third and fifth metatarsal. Had fifth toe amputation today. He will need prolonged prolonged antibiotics. ID consulted. 10/27. ID recs appreciated. He will need 4 weeks antibiotics. Discussed plan with case management rn. Midline order has been placed 10/28. No change in medical condition Assessment and plan 1. Diabetic foot infection with abscess with mild osteomyelitis. -Patient is now status post incision and drainage, debridement and amputation of the right fourth and fifth toe -Wound culture from 10/20 - strep and jeffrey. -10/24 - ESR and CRP markedly elevated. MRI RLE shows OM involving the head and neck of fifth metatarsal and third metastarsal. -ID recommends prolonged antibiotics (cefriaxone) for 4 weeks. Midline order placed -Blood culture 10/24 - Negative -General surgery and vascular surgery recommendations appreciated 2. Uncontrolled diabetes mellitus -Increased lantus to 6 units BID. Continue sliding scale insulin -Monitor blood glucose -Needs to follow up with an strategy analyst at discharge DVT prophylaxis-Heparin Full code History Interval history: See assessment and plan Hospitalist Physical - Constitutional Vitals: Temp Pulse Resp BP Pulse Ox 98.9 F 72 20 138/78 96 10/29/19 11:28 10/29/19 11:28 10/29/19 11:28 10/29/19 11:28 10/29/19 11:28 General appearance: Present: no acute distress - EENT Eyes: Present: PERRL - Neck Neck: Present: supple - Respiratory Respiratory: bilateral: CTA - Cardiovascular Heart Sounds: Present: S1 & S2 - Extremities Extremities: abnormal (Right foot dressing intact and clean) - Abdominal General gastrointestinal: soft, non-tender, non-distended, normal bowel sounds - Psychiatric Psychiatric: appropriate mood/affect - Neurologic Neurologic: CNII-XII intact Results - Labs CBC & Chem 7: 10/29/19 02:53 10/29/19 02:53 Labs: Laboratory Last Values WBC 8.3 K/mm3 (4.5-11.0) 10/29/19 02:53 RBC 3.54 M/mm3 (3.65-5.03) L 10/29/19 02:53 Hgb 10.8 gm/dl (11.8-15.2) L 10/29/19 02:53 Hct 32.0 % (35.5-45.6) L 10/29/19 02:53 MCV 90 fl (84-94) 10/29/19 02:53 MCH 31 pg (28-32) 10/29/19 02:53 MCHC 34 % (32-34) 10/29/19 02:53 RDW 12.4 % (13.2-15.2) L 10/29/19 02:53 Plt Count 372 K/mm3 (140-440) 10/29/19 02:53 Lymph % (Auto) 19.4 % (13.4-35.0) 10/29/19 02:53 [place] % (Auto) 7.2 % (0.0-7.3) 10/29/19 02:53 Eos % (Auto) 1.9 % (0.0-4.3) 10/29/19 02:53 Baso % (Auto) 0.5 % (0.0-1.8) 10/29/19 02:53 Lymph # 1.6 K/mm3 (1.2-5.4) 10/29/19 02:53 [place] # 0.6 K/mm3 (0.0-0.8) 10/29/19 02:53 Eos # 0.2 K/mm3 (0.0-0.4) 10/29/19 02:53 Baso # 0.0 K/mm3 (0.0-0.1) 10/29/19 02:53 Seg Neutrophils % 71.0 % (40.0-70.0) H 10/29/19 02:53 Seg Neutrophils # 5.9 K/mm3 (1.8-7.7) 10/29/19 02:53 ESR 120 mm/Hr (0-20) 10/25/19 16:47 PT 14.0 Sec. (12.2-14.9) 10/19/19 10:10 INR 1.07 (0.87-1.13) 10/19/19 10:10 VBG pH 7.432 (7.320-7.420) H 10/19/19 10:10 Sodium 141 mmol/L (137-145) 10/29/19 02:53 Potassium 3.4 mmol/L (3.6-5.0) L 10/29/19 02:53 Chloride 104.8 mmol/L (98-107) 10/29/19 02:53 Carbon Dioxide 23 mmol/L (22-30) 10/29/19 02:53 Anion Gap 17 mmol/L 10/29/19 02:53 BUN 9 mg/dL (9-20) 10/29/19 02:53 Creatinine 0.7 mg/dL (0.8-1.3) L 10/29/19 02:53 Estimated GFR > 60 ml/min 10/29/19 02:53 BUN/Creatinine Ratio 13 % 10/29/19 02:53 Glucose 109 mg/dL (75-100) H 10/29/19 02:53 POC Glucose 230 (70-105) H 10/29/19 11:28 Lactic Acid 1.30 mmol/L (0.7-2.0) 10/19/19 14:50 Calcium 8.6 mg/dL (8.4-10.2) 10/29/19 02:53 Total Bilirubin 0.20 mg/dL (0.1-1.2) 10/29/19 02:53 AST 23 units/L (5-40) 10/29/19 02:53 ALT 20 units/L (7-56) 10/29/19 02:53 Alkaline Phosphatase 181 units/L (35-129) H 10/29/19 02:53 C-Reactive Protein 20.50 mg/dL (0.00-1.30) H 10/25/19 16:47 Total Protein 7.0 g/dL (6.3-8.2) 10/29/19 02:53 Albumin 2.3 g/dL (3.9-5) L 10/29/19 02:53 Albumin/Globulin Ratio 0.5 % 10/29/19 02:53 Procalcitonin 1.23 ng/mL (<0.15) 10/25/19 16:47 Urine Color Yellow (Yellow) 10/19/19 13:25 Urine Turbidity Clear (Clear) 10/19/19 13:25 Urine pH 6.0 (5.0-7.0) 10/19/19 13:25 Ur Specific [place] 1.008 (1.003-1.030) 10/19/19 13:25 Urine Protein <15 mg/dl mg/dL (Negative) 10/19/19 13:25 Urine Glucose (UA) 50 mg/dL (Negative) 10/19/19 13:25 Urine Ketones 20 mg/dL (Negative) 10/19/19 13:25 Urine Blood Mod (Negative) 10/19/19 13:25 Urine Nitrite Neg (Negative) 10/19/19 13:25 Urine Bilirubin Neg (Negative) 10/19/19 13:25 Urine Urobilinogen 4.0 mg/dL (<2.0) 10/19/19 13:25 Ur Leukocyte Esterase Neg (Negative) 10/19/19 13:25 Urine WBC (Auto) 1.0 /HPF (0.0-6.0) 10/19/19 13:25 Urine RBC (Auto) 3.0 /HPF (0.0-6.0) 10/19/19 13:25 U Epithel Cells (Auto) < 1.0 /HPF (0-13.0) 10/19/19 13:25 Urine Bacteria (Auto) 1+ /HPF (Negative) 10/19/19 13:25 Urine Mucus Few /HPF 10/19/19 13:25 Vancomycin Trough 18.3 ug/mL (5.0-20.0) 10/26/19 07:02 Coronavirus (PCR) Negative (Negative) 10/20/19 08:04 Microbiology: Microbiology 10/25/19 16:59 Peripheral/Venous Blood Culture - Preliminary NO GROWTH AFTER 72 HOURS 10/25/19 16:47 Peripheral/Venous Blood Culture - Preliminary NO GROWTH AFTER 72 HOURS 10/24/19 Unknown Foot - Right Anaerobic Culture - Final Moe/IV: Voiding Method Urinal IV Catheter Type [Right Peripheral IV Forearm] IV Catheter Type [Left Forearm INT / Saline Lock ] IV Catheter Type [Left INT / Saline Lock Antecubital] Active Medications - Current Medications Current Medications: Generic Name Dose Route Start Last Admin Trade Name Freq PRN Reason Stop Dose Admin Acetaminophen 650 mg 10/19/19 16:43 10/25/19 21:44 Tylenol PO 650 mg Q4H PRN Administration Pain MILD(1-3)/Fever >100.5/THORNTON Albuterol 2.5 mg 10/19/19 16:43 Proventil IH Q4HRT PRN Shortness Of Breath Dextrose 50 ml 10/19/19 16:46 D50w (25gm) Syringe IV Q30MIN PRN Hypoglycemia Protocol Hydromorphone HCl 0.5 mg 10/27/19 12:13 10/27/19 13:50 Dilaudid IV 0.5 mg Q10MIN PRN Administration Pain , Severe (7-10) Sodium Chloride 1,000 mls @ 100 mls/hr 10/27/19 11:45 10/29/19 10:53 Nacl 0.9% 1000 Ml IV 100 mls/hr DIRECT JCARLOS Administration Ceftriaxone Sodium 2 gm in 100 mls @ 200 mls/hr 10/29/19 11:00 10/29/19 12:07 Rocephin/Ns 2 Gm/100 Ml IV 09/24/20 23:59 200 mls/hr Q24HR JCARLOS Administration Protocol Insulin Glargine 6 units 10/25/19 22:00 10/28/19 21:52 Lantus SUB-Q 6 units QHS JCARLOS Administration Insulin Human Lispro 0 unit 10/25/19 11:30 10/29/19 12:07 Humalog SUB-Q 6 unit ACHS JCARLOS Administration Protocol Lisinopril 2.5 mg 10/19/19 10:00 10/29/19 10:53 Zestril PO 2.5 mg QDAY JCARLOS Administration Ondansetron HCl 4 mg 10/19/19 16:43 Zofran IV Q8H PRN Nausea And Vomiting Oxycodone/Acetaminophen 1 tab 10/19/19 16:43 10/27/19 23:09 Percocet 5/325 PO 1 tab Q6H PRN Administration Pain, Moderate (4-6) Potassium Chloride 40 meq 10/29/19 10:00 10/29/19 10:53 K-Dur PO 10/31/19 09:59 40 meq QDAY JCARLOS Administration Sodium Chloride 10 ml 10/19/19 22:00 10/29/19 10:58 Sodium Chloride Flush Syringe 10 Ml IV 10 ml BID JCARLOS Administration Sodium Chloride 10 ml 10/19/19 16:43 Sodium Chloride Flush Syringe 10 Ml IV PRN PRN LINE FLUSH Nutrition/Malnutrition Assess - Dietary Evaluation Nutrition/Malnutrition Findings: Nutrition Notes Start: 10/26/19 13:55 Freq: Status: Active Protocol: Document 10/26/19 13:55 LM (Rec: 10/26/19 13:56 LM [id number]) Nutrition Notes Need for Assessment generated from: LOS Initial or Follow up Brief Note Subjective/Other Information Screen for LOS. Pt with 100% intakes in chart. Nutrition Intervention Revisit per MD consult or patient Sign Off request:
[2019-10-29] MEDS: INSULIN GLARGINE 100 UNITS/ML SUB-Q SCH (21:29)
[2019-10-30 05:12] LABS: Basophils # (Auto) 0.1 K/mm3 (0.0-0.1); Basophils % (Auto) 0.8 % (0.0-1.8); Eosinophils # (Auto) 0.2 K/mm3 (0.0-0.4); Eosinophils % (Auto) 2.6 % (0.0-4.3); Hematocrit 33.8 % (35.5-45.6); Hemoglobin 11.4 gm/dl (11.8-15.2); Lymphocytes # (Auto) 1.7 K/mm3 (1.2-5.4); Lymphocytes % (Auto) 23.7 % (13.4-35.0); Mean Corpuscular HGB Conc 34 % (32-34); Mean Corpuscular Volume 89 fl (84-94); Monocytes # (Auto) 0.5 K/mm3 (0.0-0.8); Platelet Count 386 K/mm3 (140-440); Red Blood Count 3.79 M/mm3 (3.65-5.03); Red Cell Distribution Width 12.4 % (13.2-15.2)
[2019-10-30 05:33] LABS: Alanine Aminotransferase 20 units/L (7-56); Albumin 2.9 g/dL (3.9-5); BUN/Creatinine Ratio 19; Blood Urea Nitrogen 15 mg/dL (9-20); Calcium 9.1 mg/dL (8.4-10.2); Hemolysis Index 3
[2019-10-30] MEDS: INSULIN LISPRO 100 UNIT/ML VIAL 3 mL SUB-Q SCH ×4 (08:00→21:28)
[2019-10-30] MEDS: cefTRIAXone/NS 2 GM/100 ML 2 GM/100 ML BAG IV SCH (10:00)
[2019-10-30] MEDS: POTASSIUM CHLORIDE ER 20 MEQ TAB PO SCH (12:03)
[2019-10-30] MEDS: LISINOPRIL 5 MG TAB PO SCH (12:03)
[2019-10-30] MEDS: INSULIN GLARGINE 100 UNITS/ML SUB-Q SCH ×2 (12:16→21:39)
--- NOTE | 2019-10-30 15:44 | Progress Note ---
Assessment and Plan Assessment and plan: 39-year-old male with a medical history of diabetes admitted with a chief complaint of right foot pain. Patient states that he has experienced pain, redness, and swelling to his right foot over the past 1 week with worsening symptoms over the past 3 days. Patient states that his pain is currently 6/10, constant, worsened with weightbearing, relieved with rest. Patient also reports darkening of his right fourth toe. Patient transported to [facility] via private vehicle for further care and evaluation. Here in the ER, patient was found to have cellulitis to right lower extremity, as well as suspected osteomyelitis to the right fourth toe, systemic inflammatory response syndrome, uncontrolled diabetes mellitus. Patient admitted to medical floor and initiated on IV antibiotic therapy. Surgical team consulted in ED for probable amputation. 10/18 - 10/23. Patient had debridement and I&D of the right fourth toe - intraoperatively, he had extensive purulent fluid and ischemic tissue around the base of the fourth toe and extending to the forefoot. Had TMA of the right fourth fourth toe on 10/23. Subsequently had vascular studies done performed that showed peripheral vascular disease. Vascular surgery was consulted for further evaluation. 10/24. Patient seen and examined at bedside this morning. Patient had spiked fever overnight with maximum temperature 101 Fahrenheit. Stat blood culture has been ordered. Patient is currently on vancomycin. We will add Zosyn for now. Has abnormal Doppler of the extremities. Plan for a diagnostic angiogram for possible revascularization as per vascular surgeon. 10/25. Has no complaints today. His CRP and ESR are elevated. Reviewed his results - no pathology result seen. Will get MRI right foot to rule out osteomyelitis. Continue antibiotics. He had diagnostic angiogram yesterday which showed no obstruction. Surgery following. 10/26. MRI right foot showed mild osteomyelitis of the third and fifth metatarsal. Had fifth toe amputation today. He will need prolonged prolonged antibiotics. ID consulted. 10/27. ID recs appreciated. He will need 4 weeks antibiotics. Discussed plan with field case manager. Midline order has been placed 10/28. No change in medical condition 10/29. Answered all his questions this mornning. Patient will need home with antibiotics arranged. Discussed with field case managermanager psychiatry and plan 1. Diabetic foot infection with abscess with mild osteomyelitis. -Patient is now status post incision and drainage, debridement and amputation of the right fourth and fifth toe -Wound culture from 10/20 - strep and jeffrey. -10/24 - ESR and CRP markedly elevated. MRI RLE shows OM involving the head and neck of fifth metatarsal and third metastarsal. -ID recommends prolonged antibiotics (cefriaxone) for [address] -Blood culture 10/24 - Negative -General surgery and vascular surgery recommendations appreciated 2. Uncontrolled diabetes mellitus -Lantus 10 units BID. Continue sliding scale insulin -Monitor blood glucose -Needs to follow up with an neurosurgical nurse practitioner at discharge DVT prophylaxis-Heparin Full code History Interval history: See assessment and plan Hospitalist Physical - Constitutional Vitals: Temp Pulse Resp BP Pulse Ox 98.7 F 71 20 132/84 97 10/30/19 11:35 10/30/19 11:35 10/30/19 11:35 10/30/19 11:35 10/30/19 11:35 General appearance: Present: no acute distress - EENT Eyes: Present: PERRL - Neck Neck: Present: normal ROM - Respiratory Respiratory: bilateral: CTA - Extremities Extremities: abnormal (Right foor dressing intact ) - Abdominal General gastrointestinal: soft, non-tender, normal bowel sounds - Neurologic Neurologic: CNII-XII intact Results - Labs CBC & Chem 7: 10/30/19 04:32 10/30/19 04:32 Labs: Laboratory Last Values WBC 7.2 K/mm3 (4.5-11.0) 10/30/19 04:32 RBC 3.79 M/mm3 (3.65-5.03) 10/30/19 04:32 Hgb 11.4 gm/dl (11.8-15.2) L 10/30/19 04:32 Hct 33.8 % (35.5-45.6) L 10/30/19 04:32 MCV 89 fl (84-94) 10/30/19 04:32 MCH 30 pg (28-32) 10/30/19 04:32 MCHC 34 % (32-34) 10/30/19 04:32 RDW 12.4 % (13.2-15.2) L 10/30/19 04:32 Plt Count 386 K/mm3 (140-440) 10/30/19 04:32 Lymph % (Auto) 23.7 % (13.4-35.0) 10/30/19 04:32 M[place]one % (Auto) 7.0 % (0.0-7.3) 10/30/19 04:32 Eos % (Auto) 2.6 % (0.0-4.3) 10/30/19 04:32 Baso % (Auto) 0.8 % (0.0-1.8) 10/30/19 04:32 Lymph # 1.7 K/mm3 (1.2-5.4) 10/30/19 04:32 M[place]one # 0.5 K/mm3 (0.0-0.8) 10/30/19 04:32 Eos # 0.2 K/mm3 (0.0-0.4) 10/30/19 04:32 Baso # 0.1 K/mm3 (0.0-0.1) 10/30/19 04:32 Seg Neutrophils % 65.9 % (40.0-70.0) 10/30/19 04:32 Seg Neutrophils # 4.8 K/mm3 (1.8-7.7) 10/30/19 04:32 ESR 120 mm/Hr (0-20) 10/25/19 16:47 PT 14.0 Sec. (12.2-14.9) 10/19/19 10:10 INR 1.07 (0.87-1.13) 10/19/19 10:10 VBG pH 7.432 (7.320-7.420) H 10/19/19 10:10 Sodium 138 mmol/L (137-145) 10/30/19 04:32 Potassium 4.0 mmol/L (3.6-5.0) 10/30/19 04:32 Chloride 99.6 mmol/L (98-107) 10/30/19 04:32 Carbon Dioxide 25 mmol/L (22-30) 10/30/19 04:32 Anion Gap 17 mmol/L 10/30/19 04:32 BUN 15 mg/dL (9-20) 10/30/19 04:32 Creatinine 0.8 mg/dL (0.8-1.3) 10/30/19 04:32 Estimated GFR > 60 ml/min 10/30/19 04:32 BUN/Creatinine Ratio 19 % 10/30/19 04:32 Glucose 226 mg/dL (75-100) H 10/30/19 04:32 POC Glucose 346 (70-105) H 10/30/19 15:49 Lactic Acid 1.30 mmol/L (0.7-2.0) 10/19/19 14:50 Calcium 9.1 mg/dL (8.4-10.2) 10/30/19 04:32 Total Bilirubin 0.20 mg/dL (0.1-1.2) 10/30/19 04:32 AST 18 units/L (5-40) 10/30/19 04:32 ALT 20 units/L (7-56) 10/30/19 04:32 Alkaline Phosphatase 184 units/L (35-129) H 10/30/19 04:32 C-Reactive Protein 20.50 mg/dL (0.00-1.30) H 10/25/19 16:47 Total Protein 7.6 g/dL (6.3-8.2) 10/30/19 04:32 Albumin 2.9 g/dL (3.9-5) L 10/30/19 04:32 Albumin/Globulin Ratio 0.6 % 10/30/19 04:32 Procalcitonin 1.23 ng/mL (<0.15) 10/25/19 16:47 Urine Color Yellow (Yellow) 10/19/19 13:25 Urine Turbidity Clear (Clear) 10/19/19 13:25 Urine pH 6.0 (5.0-7.0) 10/19/19 13:25 Ur Specific [place] 1.008 (1.003-1.030) 10/19/19 13:25 Urine Protein <15 mg/dl mg/dL (Negative) 10/19/19 13:25 Urine Glucose (UA) 50 mg/dL (Negative) 10/19/19 13:25 Urine Ketones 20 mg/dL (Negative) 10/19/19 13:25 Urine Blood Mod (Negative) 10/19/19 13:25 Urine Nitrite Neg (Negative) 10/19/19 13:25 Urine Bilirubin Neg (Negative) 10/19/19 13:25 Urine Urobilinogen 4.0 mg/dL (<2.0) 10/19/19 13:25 Ur Leukocyte Esterase Neg (Negative) 10/19/19 13:25 Urine WBC (Auto) 1.0 /HPF (0.0-6.0) 10/19/19 13:25 Urine RBC (Auto) 3.0 /HPF (0.0-6.0) 10/19/19 13:25 U Epithel Cells (Auto) < 1.0 /HPF (0-13.0) 10/19/19 13:25 Urine Bacteria (Auto) 1+ /HPF (Negative) 10/19/19 13:25 Urine Mucus Few /HPF 10/19/19 13:25 Vancomycin Trough 18.3 ug/mL (5.0-20.0) 10/26/19 07:02 Coronavirus (PCR) Negative (Negative) 10/20/19 08:04 Microbiology: Microbiology 10/25/19 16:47 Peripheral/Venous Blood Culture - Preliminary NO GROWTH AFTER 4 DAYS 10/25/19 16:59 Peripheral/Venous Blood Culture - Preliminary NO GROWTH AFTER 4 DAYS Moe/IV: Voiding Method Urinal IV Catheter Type [Right Peripheral IV Forearm] IV Catheter Type [Left Forearm INT / Saline Lock ] IV Catheter Type [Left INT / Saline Lock Antecubital] Active Medications - Current Medications Current Medications: Generic Name Dose Route Start Last Admin Trade Name Freq PRN Reason Stop Dose Admin Acetaminophen 650 mg 10/19/19 16:43 10/25/19 21:44 Tylenol PO 650 mg Q4H PRN Administration Pain MILD(1-3)/Fever >100.5/THORNTON Albuterol 2.5 mg 10/19/19 16:43 Proventil IH Q4HRT PRN Shortness Of Breath Dextrose 50 ml 10/19/19 16:46 D50w (25gm) Syringe IV Q30MIN PRN Hypoglycemia Protocol Hydromorphone HCl 0.5 mg 10/27/19 12:13 10/27/19 13:50 Dilaudid IV 0.5 mg Q10MIN PRN Administration Pain , Severe (7-10) Sodium Chloride 1,000 mls @ 100 mls/hr 10/27/19 11:45 10/29/19 21:26 Nacl 0.9% 1000 Ml IV 100 mls/hr DIRECT JCARLOS Administration Ceftriaxone Sodium 2 gm in 100 mls @ 200 mls/hr 10/29/19 11:00 10/30/19 10:00 Rocephin/Ns 2 Gm/100 Ml IV 11/24/19 23:59 200 mls/hr Q24HR JCARLOS Administration Protocol Insulin Glargine 6 units 10/29/19 22:00 10/30/19 12:16 Lantus SUB-Q 6 units BID JCARLOS Administration Insulin Human Lispro 0 unit 10/25/19 11:30 10/30/19 08:00 Humalog SUB-Q 4 unit ACHS JCARLOS Administration Protocol Lisinopril 2.5 mg 10/19/19 10:00 10/30/19 12:03 Zestril PO 2.5 mg QDAY JCARLOS Administration Ondansetron HCl 4 mg 10/19/19 16:43 Zofran IV Q8H PRN Nausea And Vomiting Oxycodone/Acetaminophen 1 tab 10/19/19 16:43 10/27/19 23:09 Percocet 5/325 PO 1 tab Q6H PRN Administration Pain, Moderate (4-6) Potassium Chloride 40 meq 10/29/19 10:00 10/30/19 12:03 K-Dur PO 10/31/19 09:59 40 meq QDAY JCARLOS Administration Sodium Chloride 10 ml 10/19/19 22:00 10/30/19 12:16 Sodium Chloride Flush Syringe 10 Ml IV 10 ml BID JCARLOS Administration Sodium Chloride 10 ml 10/19/19 16:43 Sodium Chloride Flush Syringe 10 Ml IV PRN PRN LINE FLUSH Nutrition/Malnutrition Assess - Dietary Evaluation Nutrition/Malnutrition Findings: Nutrition Notes Start: 10/26/19 13:55 Freq: Status: Active Protocol: Document 10/26/19 13:55 LM (Rec: 10/26/19 13:56 LM [email or web address]) Nutrition Notes Need for Assessment generated from: LOS Initial or Follow up Brief Note Subjective/Other Information Screen for LOS. Pt with 100% intakes in chart. Nutrition Intervention Revisit per MD consult or patient Sign Off request:
[2019-10-30] MEDS: SODIUM CHLORIDE 0.9% 1000 ML 1,000 ML IV SCH (21:29)
[2019-10-31] MEDS: SODIUM CHLORIDE 0.9% 1000 ML 1,000 ML IV SCH (06:38)
[2019-10-31 07:35] LABS: Basophils % (Auto) 0.6 % (0.0-1.8); Eosinophils # (Auto) 0.2 K/mm3 (0.0-0.4); Eosinophils % (Auto) 3.2 % (0.0-4.3); Hematocrit 35.3 % (35.5-45.6); Hemoglobin 11.9 gm/dl (11.8-15.2); Lymphocytes # (Auto) 1.5 K/mm3 (1.2-5.4); Lymphocytes % (Auto) 23.4 % (13.4-35.0); Mean Corpuscular HGB Conc 34 % (32-34); Mean Corpuscular Volume 89 fl (84-94); Monocytes # (Auto) 0.4 K/mm3 (0.0-0.8); Monocytes % (Auto) 6.3 % (0.0-7.3); Platelet Count 393 K/mm3 (140-440); Red Blood Count 3.97 M/mm3 (3.65-5.03); Red Cell Distribution Width 12.7 % (13.2-15.2)
[2019-10-31 08:03] LABS: Alanine Aminotransferase 22 units/L (7-56); Albumin 2.9 g/dL (3.9-5); Blood Urea Nitrogen 13 mg/dL (9-20); Calcium 9.2 mg/dL (8.4-10.2); Hemolysis Index 4
[2019-10-31 08:17] LABS: BUN/Creatinine Ratio 19
[2019-10-31] MEDS: INSULIN LISPRO 100 UNIT/ML VIAL 3 mL SUB-Q SCH ×4 (08:24→17:23)
--- NOTE | 2019-10-31 09:22 | Discharge Summary ---
Providers - Providers Date of Admission: 10/19/19 16:43 Date of discharge: 10/31/19 Attending physician: LORENZA ABRAHAM 10/19/19 17:39 Consult to Physician [CONS] Stat Comment: Consulting Provider: RAQUEL PICHARDO Physician Instructions: Reason For Exam: Right foot gangrene 10/20/19 08:38 Consult to Case Management [CONS] Routine Services Needed at Discharge: Home Health Services [facility] Notified:: no Additional Physician Instructions: Need assistance with wound care, IV Abx, etc. 10/21/19 14:06 Consult to Wound/ET Nurse [CONS] Routine Reason For Exam: wound eval 10/24/19 16:49 Consult to Physician [CONS] Routine Comment: Consulting Provider: RICK GONZALEZ Physician Instructions: Reason For Exam: Peripheral Artery Disease 10/27/19 18:02 Consult to Physician [CONS] Routine Comment: Consulting Provider: YAW BLACK Physician Instructions: Reason For Exam: Osteomyelitis 10/28/19 16:00 Consult to Case Management [CONS] Routine Services Needed at Discharge: Other Notified:: case managment Comment:: IV abx Additional Physician Instructions: [facility] O: [phone] F: [phone] OUTPATIENT PARENTERAL ANTIBIOTIC THERAPY (OPAT) ORDERS Diagnoses: R foot osteomyelitis Antimicrobial administration: - IV ceftriaxone 2 g daily for 4 more weeks ending 11/24/2019 - Remove PICC/mid line after last dose. Lines: - Maintain IV access with weekly dressing changes and locks per protocol. Lab monitoring: - CBC with differential, Creatinine, ALT, AST, CRP once a week every Thursday while on IV antibiotics. Please fax results to [phone] and call [phone] for critical lab results. MD [facility] 10/28/19 16:32 Consult to PICC Line RN [CONS] Urgent Reason For Exam: Prolonged IV antibiotics Type Line:: Midline Primary care physician: AUTO MECHANIC Hospitalization Condition: Stable Hospital course: 39-year-old male with a medical history of diabetes admitted with a chief complaint of right foot pain. Patient states that he has experienced pain, redness, and swelling to his right foot over the past 1 week with worsening symptoms over the past 3 days. Patient states that his pain is currently 6/10, constant, worsened with weightbearing, relieved with rest. Patient also reports darkening of his right fourth toe. Patient transported to [facility] via private vehicle for further care and evaluation. Here in the ER, patient was found to have cellulitis to right lower extremity, as well as suspected osteomyelitis to the right fourth toe, systemic inflammatory response syndrome, uncontrolled diabetes mellitus. Patient admitted to medical floor and initiated on IV antibiotic therapy. Surgical team consulted in ED for probable amputation. 10/18 - 10/23. Patient had debridement and I&D of the right fourth toe - intraoperatively, he had extensive purulent fluid and ischemic tissue around the base of the fourth toe and extending to the forefoot. Had TMA of the right fourth fourth toe on 10/23. Subsequently had vascular studies done performed that showed peripheral vascular disease. Vascular surgery was consulted for further evaluation. 10/24. Patient seen and examined at bedside this morning. Patient had spiked fever overnight with maximum temperature 101 Fahrenheit. Stat blood culture has been ordered. Patient is currently on vancomycin. We will add Zosyn for now. Has abnormal Doppler of the extremities. Plan for a diagnostic angiogram for possible revascularization as per vascular surgeon. 10/25. Has no complaints today. His CRP and ESR are elevated. Reviewed his results - no pathology result seen. Will get MRI right foot to rule out osteomyelitis. Continue antibiotics. He had diagnostic angiogram yesterday which showed no obstruction. Surgery following. 10/26. MRI right foot showed mild osteomyelitis of the third and fifth metatarsal. Had fifth toe amputation today. He will need prolonged prolonged antibiotics. ID consulted. 10/27. ID recs appreciated. He will need 4 weeks antibiotics. Discussed plan with case preparer and liner. Midline order has been placed 10/28. No change in medical condition 10/29. Answered all his questions this mornning. Patient will need home with antibiotics arranged. Discussed with case preparer and liner 10/30. Patient will be discharged to follow up with surgery and ID. He will complete a total of 6 weeks antibiotics Disposition: DC/TX- HOME UNDER HOME HLTH - Discharge Diagnoses (1) Cellulitis Status: Acute Qualifiers: Site of cellulitis of extremity: lower extremity Laterality: right (2) Diabetic infection of right foot Status: Acute (3) Osteomyelitis due to type 1 diabetes mellitus Status: Suspected Core Measure Documentation - Palliative Care Palliative Care/ Comfort Measures: Not Applicable - Core Measures Any of the following diagnoses?: none Exam - Constitutional Vitals: Temp Pulse Resp BP Pulse Ox 97.9 F 70 16 141/84 98 10/31/19 07:39 10/31/19 07:39 10/31/19 08:00 10/31/19 07:39 10/31/19 08:00 General appearance: Present: no acute distress, well-nourished - EENT Eyes: Present: PERRL ENT: hearing intact, clear oral mucosa - Neck Neck: Present: supple, normal ROM - Respiratory Respiratory effort: normal Respiratory: bilateral: CTA - Cardiovascular Heart Sounds: Present: S1 & S2. Absent: rub, click - Extremities Extremities: pulses symmetrical, abnormal (Right foot dressing intact ) Peripheral Pulses: within normal limits - Abdominal General gastrointestinal: Present: soft, non-tender, non-distended, normal bowel sounds Male genitourinary: Present: normal - Integumentary Integumentary: Present: clear, warm, dry - Musculoskeletal Musculoskeletal: gait normal, strength equal bilaterally - Psychiatric Psychiatric: appropriate mood/affect, intact judgment & insight - Neurologic Neurologic: CNII-XII intact, moves all extremities Plan Diet: diabetic Additional Instructions: Continue ceftriaxone until 11/23. Follow with wound care clinic and surgery. Follow up with Infectious disease clinic. Follow up with endocrinology clinic Follow up with: PRIMARY CARE, [Primary Care Provider] - 3-5 Days YAW BLACK MD [Staff Physician] - 7 Days RUFUS OH MD [Staff Physician] - 7 Days MARY CARMEN LOUISE MD [Staff Physician] - 7 Days Prescriptions: Metformin HCl [metFORMIN] 1,000 mg PO BID #120 tablet HYDROcodone/APAP 7.5-325 [[place] 7.5-325 mg TAB] 1 each PO Q6HR PRN #20 tablet PRN Reason: Pain Insulin NPH Hum/Reg Insulin Hm [Novolin 70-30 100 Unit/ml Vial] 10 unit SQ BID #10 ml traMADoL [Ultram 50 MG tab] 50 mg PO Q6HR PRN #20 tablet PRN Reason: Pain lisinopriL [Zestril TAB] 2.5 mg PO QDAY #60 tablet
[2019-10-31] MEDS: LISINOPRIL 5 MG TAB PO SCH (09:25)
[2019-10-31] MEDS: cefTRIAXone/NS 2 GM/100 ML 2 GM/100 ML BAG IV SCH (09:25)
[2019-10-31] MEDS: INSULIN GLARGINE 100 UNITS/ML SUB-Q SCH (11:00)
[2019-10-31 11:48] VITALS: BP 132/81
--- NOTE | 2019-10-31 15:55 | Progress Note ---
Assessment and Plan Cultures: 10/19/2019 blood culture: No growth Urine culture: No growth 10/21/2019 right toe intraoperative cultures: Group B streptococcus, [place] albicans 10/25/2019 blood culture: No growth A/P: 39-year-old male with diabetes mellitus: #Sepsis secondary to right foot acute osteomyelitis, abscess and necrotizing infection: Status post fourth and fifth toe amputations. MRI on 10/27/2019 also suggestive of mild osteomyelitis involving the lateral aspect of the head/neck of the third metatarsal. Cultures have grown group B streptococcus. [place] albicans in the wound does not need to be treated. #Diabetes mellitus, uncontrolled. Recs: Considering his extent of infection, and possible residual osteomyelitis, recommend IV ceftriaxone 2 g daily for 4 more weeks ending 11/24/2019 Place midline prior to discharge Case management orders placed Continue aggressive wound care and tight glycemic control Okay for discharge from infectious disease perspective. Micthell Sheridan MD [facility] [place] [facility] ([facility]) M: [phone] O: [phone] F: [phone] Subjective Date of service: 10/31/19 Interval history: Afebrile, normal white count. No acute change. Objective - Exam Narrative Exam: Physical exam deferred due to PPE conservation strategy. Please refer to primary team's note. - Constitutional Vitals: Vital Signs Temp Pulse Resp BP Pulse Ox 98.2 F 74 18 132/81 98 10/31/19 11:13 10/31/19 11:13 10/31/19 11:13 10/31/19 11:13 10/31/19 11:13 Temperature -Last 24 Hours Temperature 98.2 F Temperature 97.9 F Temperature 98.1 F Temperature 98.8 F Temperature 99.1 F - Labs CBC & Chem 7: 10/31/19 06:45 10/31/19 06:45 Labs: Abnormal lab results 10/30/19 10/31/19 10/31/19 Range/Units 21:10 06:45 06:45 Hct 35.3 L (35.5-45.6) % RDW 12.7 L (13.2-15.2) % Creatinine 0.7 L (0.8-1.3) mg/dL Glucose 217 H (75-100) mg/dL POC Glucose 240 H (70-105) Alkaline Phosphatase 177 H (35-129) units/L Albumin 2.9 L (3.9-5) g/dL 10/31/19 10/31/19 Range/Units 08:17 11:15 Hct (35.5-45.6) % RDW (13.2-15.2) % Creatinine (0.8-1.3) mg/dL Glucose (75-100) mg/dL POC Glucose 204 H 259 H (70-105) Alkaline Phosphatase (35-129) units/L Albumin (3.9-5) g/dL
== END 2019-10-31 17:38 | disposition home health service (06) | DRG 854 ==
LOC: ED 09:31 → 3A 16:43 → 3B-SURG 17:00 → 4A 10-25 16:32
PROVIDERS: ADMIT Internal Medicine; ATTEND Internal Medicine
PROC: 0JBQ0ZZ Excision of Right Foot Subcutaneous Tissue and Fascia, Open Approach (ICD-10-PCS; 2019-10-21)
PROC: 0Y6V0Z0 Detachment at Right 4th Toe, Complete, Open Approach (ICD-10-PCS; principal; 2019-10-24)
PROC: B41D1ZZ Fluoroscopy of Aorta and Bilateral Lower Extremity Arteries using Low Osmolar Contrast (ICD-10-PCS; 2019-10-25)
DX: A41.9 Sepsis, unspecified organism (principal); L03.115 Cellulitis of right lower limb; E87.1 Hypo-osmolality and hyponatremia; I96 Gangrene, not elsewhere classified; E10.52 Type 1 diabetes mellitus with diabetic peripheral angiopathy with gangrene; M86.8X7 Other osteomyelitis, ankle and foot; Z83.3 Family history of diabetes mellitus; Z82.49 Family history of ischemic heart disease and other diseases of the circulatory system; Z91.19 Patient's noncompliance with other medical treatment and regimen; E10.65 Type 1 diabetes mellitus with hyperglycemia; E10.69 Type 1 diabetes mellitus with other specified complication; Z20.828 Contact with and (suspected) exposure to other viral communicable diseases
CPT/HCPCS: 36247; 36415; 71045; 75625; 75710; 76937; 80048; 80053; 80202; 81001; 82140; 82805; 82962; 84145; 85025; 85610; 85652; 86140; 87040; 87075; 87086; 87116; 88302; 88304; 88305; 88311; 88312; 93005; G0378; A9577; C1769; C1887; J0696; J1170; J1644; J1815; J2250; J2270; J2370; J2405; J2543; J2704; J3010; J3370; J3480; J7030; J7040; J7050; Q9967; U0003-CS

== ENCOUNTER 2019-11-15 10:49 | Emergency (ER) | payer SELFPAY ==
[2019-11-15 10:53] VITALS: BP 115/74
== END 2019-11-15 11:11 | disposition left against medical advice (07) ==
LOC: ED 10:49
DX: Z00.00 Encounter for general adult medical examination without abnormal findings (principal); Z53.21 Procedure and treatment not carried out due to patient leaving prior to being seen by health care provider